=== PATIENT | female | born 1980 | race Caucasian/White ===

== ENCOUNTER 2017-09-28 12:17 | Inpatient (IN) ==
--- NOTE | 2017-09-28 13:01 | Emergency Department Note ---
Disposition Clinical Impression: Pyelonephritis Disposition: Admitted As Inpatient Condition: Good Referrals: Kaylee Pierre, GANTRY CRANE OPERATOR [Primary Care Provider] - NONE,PCP [Family Provider] - Forms: ED Satisfaction Letter, Work/School Release Time of Disposition: 17:30 General Adult HPI - General Chief complaint: ED Abdominal Pain Stated complaint: ABD Pain Time Seen by Provider: 09/28/17 12:24 Nursing Notes Reviewed: Yes Vital Signs Reviewed: Yes - History of Present Illness HPI Narrative: Three-day history of abdominal pain. No nausea or vomiting. Starts in her back comes around to her abdomen. States is on both sides occasionally. Fevers at home. High fever of 100.7. Has been taking Tylenol and Motrin this does help with the fever but not the pain. Diagnosed with urinary tract infection at urgent care and then sent here for possible diverticulosis. Pain Scale: 10 - Related Data Home Medications Medication Instructions Recorded Confirmed Albuterol Sulfate [Ventolin Hfa] 2 puff IH Q6H PRN 09/28/17 09/28/17 BuPROPion SR (12 HR) [Wellbutrin 150 mg PO BID 09/28/17 09/28/17 SR] Citalopram Hydrobromide [Celexa] 40 mg PO DAILY 09/28/17 09/28/17 Cyclobenzaprine HCl 5 mg PO DAILY PRN 09/28/17 09/28/17 Fluticasone Propionate [Flovent 2 puff IH BID 09/28/17 09/28/17 Hfa] Furosemide [Lasix] 20 mg PO DAILY 09/28/17 09/28/17 Lisinopril [Zestril] 10 mg PO DAILY 09/28/17 09/28/17 Norethindrone [Cathy] 0.35 mg PO DAILY 09/28/17 09/28/17 Omeprazole [PriLOSEC] 20 mg PO DAILY 09/28/17 09/28/17 Potassium Chloride [K-Tab ER] 20 meq PO DAILY 09/28/17 09/28/17 Allergies Allergy/AdvReac Type Severity Reaction Status Date / Time sulfamethoxazole Allergy Hives Verified 09/28/17 10:39 [From Bactrim] trimethoprim [From Bactrim] Allergy Hives Verified 09/28/17 10:39 All systems ED: reviewed and negative except as stated. Constitutional: Reports: fever ENT ED: Denies: congestion Cardiovascular: Denies: chest pain, palpitations, syncope Respiratory: Denies: cough, dyspnea Gastrointestinal: Reports: abdominal pain. Denies: nausea, vomiting, diarrhea, constipation, hematemesis, melena, hematochezia Genitourinary: Denies: urgency, dysuria, frequency, hematuria Musculoskeletal: Denies: back pain, neck pain Integumentary: Denies: rash, abrasion Neurological: Denies: headache, weakness, numbness Past Medical History - Past Medical History Attestation: Yes The following information was validated with the patient. Source: patient - Social History Smoking Status: Unknown if ever smoked Smokeless Tobacco Status: No Alcohol use: Reports: none Physical Exam - General Limitations: no limitations General appearance: alert, in no apparent distress - Head Head exam: atraumatic, normocephalic, normal inspection - Eye Eye exam: Present: normal appearance, PERRL, EOMI - ENT ENT exam: normal exam, normal oropharynx, mucous membranes moist - Neck Neck exam: Present: normal inspection, full ROM, trachea midline - Chest Chest inspection: Present: normal inspection, symmetric chest wall rise - Respiratory Respiratory exam: Present: normal lung sounds bilaterally. Absent: respiratory distress, accessory muscle use - Cardiovascular Cardiovascular exam: Present: regular rate, normal rhythm, normal heart sounds - Abdominal Exam Abdominal exam: Present: soft, tenderness (Mild diffuse). Absent: distention, guarding, rebound, rigidity, French's sign, Rovsing's sign, tenderness at McBurney's Point - Extremities Exam Extremities exam: Present: normal inspection, full ROM, normal capillary refill. Absent: tenderness, pedal edema - Back Exam Back exam: Present: normal inspection, full ROM, CVA tenderness (R), CVA tenderness (L). Absent: tenderness - Neurological Exam Neurological exam: Present: alert, oriented X3 - Psychiatric Psychiatric exam: Present: normal affect, normal mood - Skin Skin exam: Present: warm, dry, intact, normal color. Absent: rash Course Course Narrative: Female patient presenting to the emergency department complaining of 3 days of abdominal pain. She reports intermittent fevers at home. High temp of 100.7. Has been taken Tylenol Motrin to help with this. The medication has not helped with the pain. She denies any nausea or vomiting. She denies any diarrhea. Denies a consultation had a normal bowel movements today. No blood in her urine or stool. No trouble urinating. Was seen at urgent care who had a concern for possible diverticulitis. She is now presenting to [facility]. On exam she is resting comfortably. Lung sounds are clear heart tones are normal abdomen is soft nonrigid. She does report some flank pain that radiates around to her abdomen. More on the left but does occasionally occur on the right. A UTI at the urgent care. We will get a CT of patient's abdomen flat her with pain medication and get basic labs. - Reevaluation(s) Reevaluation #1: Patient CT of abdomen and pelvis is back. Does show perinephric stranding as well as a possible renal abscess. Patient does have a leukocytosis. We will place patient on antibiotics and speak with urology. We will also admit to the hospital. Time: 16:19 - Consultations Consultation #1: I spoke with Dr Alexis. He states that he will see the Pt in the hospital. Time: 16:37 Consultation #2: Dr Bond accepted patient in stable condition. Time: 17:30 Vital Signs Temperature 99.1 F 09/28/17 12:20 Pulse Rate 112 09/28/17 12:20 Respiratory Rate 22 09/28/17 12:20 Blood Pressure 100/63 09/28/17 12:20 O2 Sat by Pulse Oximetry 98 09/28/17 12:20 Temperature 99.1 F 09/28/17 13:13 Pulse Rate 93 09/28/17 13:13 Respiratory Rate 18 09/28/17 13:13 Blood Pressure 100/63 09/28/17 13:13 O2 Sat by Pulse Oximetry 95 09/28/17 13:13 Oxygen Delivery Oxygen Delivery Room Air Medical Decision Making - Medical Records Medical records reviewed: Yes I reviewed the patient's medical records. - Lab Data Lab results reviewed: Yes I reviewed the patient's lab results. Result diagrams: 09/28/17 13:12 09/28/17 13:12 Lab Results 09/28/17 09/28/17 09/28/17 Range/Units 12:48 13:12 13:12 WBC 20.8 H (4.3-11.1) K/mcL RBC 3.93 (3.82-4.97) M/mcL Hgb 12.0 (11.5-15.4) g/dL Hct 34.8 L (35.3-44.9) % MCV 88.5 (83.0-100.0) fL MCH 30.5 (28.0-33.3) pg MCHC 34.5 (31.6-35.5) g/dL RDW 12.8 (11.5-14.5) % Plt Count 192 (140-400) K/mcL MPV 9.7 (9.4-12.4) fL Immature Gran % 1.0 (0-4) % Seg Neutrophils % 81.8 % Lymphocytes % 9.1 % Monocytes % 7.8 % Eosinophils % 0.2 % Basophils % 0.1 % Neutrophils # 17.0 H (1.6-8.9) K/mcL Lymphocytes # 1.9 (0.6-4.6) K/mcL Monocytes # 1.6 H (0.0-1.3) K/mcL Eosinophils # 0.1 (0.0-0.6) K/mcL Basophils # 0.0 (0.0-0.2) K/mcL Sodium 134 L (136-145) mEq/L Potassium 3.7 (3.5-5.1) mEq/L Chloride 102 (98-107) mEq/L Carbon Dioxide 27 (23-29) mEq/L BUN 11 (6-20) mg/dL Creatinine 0.68 (0.60-1.20) mg/dL Est GFR ( Amer) > 60 (> 60) Est GFR (Non-Af Amer) > 60 (> 60) BUN/Creatinine Ratio 16 (6-26) Glucose 102 (70-105) mg/dL Calculated Osmolality 278 L (280-300) Lactic Acid (0.5-2.2) mmol/L Calcium 8.6 (8.6-10.3) mg/dL Urine Color Dark Yellow (Yellow) Urine Clarity Hazy A (Clear) Urine pH 6.0 (5.0-8.0) pH Units Ur Specific [place] 1.018 (1.010-1.025) Urine Protein 100 H (Neg-Trace) mg/dL Urine Glucose (UA) Normal (Normal) mg/dL Urine Ketones Trace H (Negative) mg/dL Urine Blood Small H (Negative) Urine Nitrite Negative (Negative) Urine Bilirubin Negative (Negative) Urine Urobilinogen Normal (Normal) mg/dL Ur Leukocyte Esterase Large H (Negative) Urine Microscopic RBC 0-3 (0-3) per hpf Urine Microscopic WBC TNTC H (0-3) per hpf Ur Squamous Epith Cells Many H (None-Few) per lpf Urine Bacteria Many H (None-Few) per hpf Urine Mucus Few (Few) Ur Culture Indicated? NO. A (NO) Urine Test (Negative) 09/28/17 09/28/17 Range/Units 13:13 15:40 WBC (4.3-11.1) K/mcL RBC (3.82-4.97) M/mcL Hgb (11.5-15.4) g/dL Hct (35.3-44.9) % MCV (83.0-100.0) fL MCH (28.0-33.3) pg MCHC (31.6-35.5) g/dL RDW (11.5-14.5) % Plt Count (140-400) K/mcL MPV (9.4-12.4) fL Immature Gran % (0-4) % Seg Neutrophils % % Lymphocytes % % Monocytes % % Eosinophils % % Basophils % % Neutrophils # (1.6-8.9) K/mcL Lymphocytes # (0.6-4.6) K/mcL Monocytes # (0.0-1.3) K/mcL Eosinophils # (0.0-0.6) K/mcL Basophils # (0.0-0.2) K/mcL Sodium (136-145) mEq/L Potassium (3.5-5.1) mEq/L Chloride (98-107) mEq/L Carbon Dioxide (23-29) mEq/L BUN (6-20) mg/dL Creatinine (0.60-1.20) mg/dL Est GFR ( Amer) (> 60) Est GFR (Non-Af Amer) (> 60) BUN/Creatinine Ratio (6-26) Glucose (70-105) mg/dL Calculated Osmolality (280-300) Lactic Acid 0.5 (0.5-2.2) mmol/L Calcium (8.6-10.3) mg/dL Urine Color (Yellow) Urine Clarity (Clear) Urine pH (5.0-8.0) pH Units Ur Specific [place] (1.010-1.025) Urine Protein (Neg-Trace) mg/dL Urine Glucose (UA) (Normal) mg/dL Urine Ketones (Negative) mg/dL Urine Blood (Negative) Urine Nitrite (Negative) Urine Bilirubin (Negative) Urine Urobilinogen (Normal) mg/dL Ur Leukocyte Esterase (Negative) Urine Microscopic RBC (0-3) per hpf Urine Microscopic WBC (0-3) per hpf Ur Squamous Epith Cells (None-Few) per lpf Urine Bacteria (None-Few) per hpf Urine Mucus (Few) Ur Culture Indicated? (NO) Urine Test Negative (Negative) - Radiology Data Radiology results reviewed: Yes I reviewed the patient's radiology results. Abdomen/Pelvis CT 09/28/17 13:02 IMPRESSION: 1. Mild left perinephric edema can be seen in the setting of pyelonephritis, limited by the lack intravenous contrast ; correlate with urinalysis. A 2.7 cm ill defined cystic lesion within the left lower pole could represent a simple cyst versus renal abscess. 2. Trace bilateral pleural effusions. 3. Trace pelvic ascites. D/ / Javier Kaminski MD / Javier Kaminski MD Interpreting Provider: Javier Kaminski MD
[2017-09-28 13:04] LABS: Bilirubin,Urine Negative (Negative); Blood,Urine Small (Negative); Color,Urine Dark Yellow (Yellow); Glucose,Urine (UA) Normal (Normal); Ketones,Urine Trace mg/dL (Negative); Leukocyte Esterase,Urine Large (Negative); Nitrite,Urine Negative (Negative); Protein,Urine 100 mg/dL (Neg-Trace); Specific Gravity,Urine 1.018 (1.010-1.025); Urobilinogen,Urine Normal (Normal)
[2017-09-28 13:07] LABS: Bacteria,Urine Many per hpf (None-Few); Squamous Epithelial Cell,Urine Many per lpf (None-Few); WBC,Urine TNTC per hpf (0-3)
[2017-09-28 13:22] LABS: Clarity,Urine Hazy (Clear)
[2017-09-28 13:29] LABS: Basophils % 0.1 %; Eosinophils # 0.1 K/mcL (0.0-0.6); Eosinophils % 0.2 %; Hematocrit 34.8 % (35.3-44.9); Lymphocytes # 1.9 K/mcL (0.6-4.6); Lymphocytes % 9.1 %; Mean Corpuscular HGB Conc 34.5 g/dL (31.6-35.5); Mean Corpuscular Hemoglobin 30.5 pg (28.0-33.3); Mean Corpuscular Volume 88.5 fL (83.0-100.0); Mean Platelet Volume 9.7 fL (9.4-12.4); Monocytes # 1.6 K/mcL (0.0-1.3); Monocytes % 7.8 %; Platelet Count 192 K/mcL (140-400); Red Blood Count 3.93 M/mcL (3.82-4.97); Red Cell Distribution Width 12.8 % (11.5-14.5); Segmented Neutrophils % 81.8 %
[2017-09-28 13:31] LABS: Mucus,Urine Few (Few)
[2017-09-28 13:32] LABS: RBC,Urine 0-3 per hpf (0-3)
[2017-09-28 13:47] LABS: BUN/Creatinine Ratio 16 (6-26); Blood Urea Nitrogen 11 mg/dL (6-20); Calcium 8.6 mg/dL (8.6-10.3); Carbon Dioxide 27 mEq/L (23-29); Chloride 102 mEq/L (98-107); Glucose 102 mg/dL (70-105); Osmolality,Calculated 278 (280-300); Potassium 3.7 mEq/L (3.5-5.1); Sodium 134 mEq/L (136-145); eGFR For Non-African Americans > 60 (> 60)
[2017-09-28] MEDS ORDERED: Ketorolac 30 MG/ML VIAL IM ONE (13:49)
[2017-09-28] MEDS ORDERED: cefTRIAXone 1,000 MG in Water for inj. (sterile) 20 ML 10 ML IVP ONE (14:23)
[2017-09-28] MEDS ORDERED: 0.9 % Sodium Chloride 1,000 ML IVC ONE (14:24)
--- NOTE | 2017-09-28 16:11 | Emergency Department Note ---
Disposition Clinical Impression: Pyelonephritis Disposition: Still a Patient Referrals: Kaylee Pierre, PHP MYSQL DEVELOPER [Primary Care Provider] - NONE,PCP [Family Provider] - Forms: ED Satisfaction Letter, Work/School Release General Adult HPI - General Chief complaint: ED Abdominal Pain Stated complaint: ABD Pain Time Seen by Provider: 09/28/17 12:24 Source: patient, family Limitations: no limitations - History of Present Illness Pain Scale: 10 - Related Data Home Medications Medication Instructions Recorded Confirmed Acyclovir 09/28/17 BuPROPion 09/28/17 Citalopram 09/28/17 Cyclobenzaprine 09/28/17 Flovent Hfa 09/28/17 Lisinopril 09/28/17 Omeprazole 09/28/17 Potassium Chloride 09/28/17 Ventolin Hfa 09/28/17 Allergies Allergy/AdvReac Type Severity Reaction Status Date / Time sulfamethoxazole Allergy Hives Verified 09/28/17 10:39 [From Bactrim] trimethoprim [From Bactrim] Allergy Hives Verified 09/28/17 10:39 Past Medical History - Past Medical History Medical history: Reports: no medical history Psychiatric history: Reports: no psych history - Social History Smoking Status: Unknown if ever smoked Smokeless Tobacco Status: No Alcohol use: Reports: none Physical Exam - General Limitations: no limitations General appearance: alert, in no apparent distress Course Vital Signs Temperature 99.1 F 09/28/17 12:20 Pulse Rate 112 09/28/17 12:20 Respiratory Rate 22 09/28/17 12:20 Blood Pressure 100/63 09/28/17 12:20 O2 Sat by Pulse Oximetry 98 09/28/17 12:20 Temperature 99.1 F 09/28/17 13:13 Pulse Rate 93 09/28/17 13:13 Respiratory Rate 18 09/28/17 13:13 Blood Pressure 100/63 09/28/17 13:13 O2 Sat by Pulse Oximetry 95 09/28/17 13:13 Oxygen Delivery Oxygen Delivery Room Air Medical Decision Making - Lab Data Result diagrams: 09/28/17 13:12 09/28/17 13:12 Lab Results 09/28/17 09/28/17 09/28/17 Range/Units 12:48 13:12 13:12 WBC 20.8 H (4.3-11.1) K/mcL RBC 3.93 (3.82-4.97) M/mcL Hgb 12.0 (11.5-15.4) g/dL Hct 34.8 L (35.3-44.9) % MCV 88.5 (83.0-100.0) fL MCH 30.5 (28.0-33.3) pg MCHC 34.5 (31.6-35.5) g/dL RDW 12.8 (11.5-14.5) % Plt Count 192 (140-400) K/mcL MPV 9.7 (9.4-12.4) fL Immature Gran % 1.0 (0-4) % Seg Neutrophils % 81.8 % Lymphocytes % 9.1 % Monocytes % 7.8 % Eosinophils % 0.2 % Basophils % 0.1 % Neutrophils # 17.0 H (1.6-8.9) K/mcL Lymphocytes # 1.9 (0.6-4.6) K/mcL Monocytes # 1.6 H (0.0-1.3) K/mcL Eosinophils # 0.1 (0.0-0.6) K/mcL Basophils # 0.0 (0.0-0.2) K/mcL Sodium 134 L (136-145) mEq/L Potassium 3.7 (3.5-5.1) mEq/L Chloride 102 (98-107) mEq/L Carbon Dioxide 27 (23-29) mEq/L BUN 11 (6-20) mg/dL Creatinine 0.68 (0.60-1.20) mg/dL Est GFR ( Amer) > 60 (> 60) Est GFR (Non-Af Amer) > 60 (> 60) BUN/Creatinine Ratio 16 (6-26) Glucose 102 (70-105) mg/dL Calculated Osmolality 278 L (280-300) Lactic Acid (0.5-2.2) mmol/L Calcium 8.6 (8.6-10.3) mg/dL Urine Color Dark Yellow (Yellow) Urine Clarity Hazy A (Clear) Urine pH 6.0 (5.0-8.0) pH Units Ur Specific [place] 1.018 (1.010-1.025) Urine Protein 100 H (Neg-Trace) mg/dL Urine Glucose (UA) Normal (Normal) mg/dL Urine Ketones Trace H (Negative) mg/dL Urine Blood Small H (Negative) Urine Nitrite Negative (Negative) Urine Bilirubin Negative (Negative) Urine Urobilinogen Normal (Normal) mg/dL Ur Leukocyte Esterase Large H (Negative) Urine Microscopic RBC 0-3 (0-3) per hpf Urine Microscopic WBC TNTC H (0-3) per hpf Ur Squamous Epith Cells Many H (None-Few) per lpf Urine Bacteria Many H (None-Few) per hpf Urine Mucus Few (Few) Ur Culture Indicated? NO. A (NO) Urine Test (Negative) 09/28/17 09/28/17 Range/Units 13:13 15:40 WBC (4.3-11.1) K/mcL RBC (3.82-4.97) M/mcL Hgb (11.5-15.4) g/dL Hct (35.3-44.9) % MCV (83.0-100.0) fL MCH (28.0-33.3) pg MCHC (31.6-35.5) g/dL RDW (11.5-14.5) % Plt Count (140-400) K/mcL MPV (9.4-12.4) fL Immature Gran % (0-4) % Seg Neutrophils % % Lymphocytes % % Monocytes % % Eosinophils % % Basophils % % Neutrophils # (1.6-8.9) K/mcL Lymphocytes # (0.6-4.6) K/mcL Monocytes # (0.0-1.3) K/mcL Eosinophils # (0.0-0.6) K/mcL Basophils # (0.0-0.2) K/mcL Sodium (136-145) mEq/L Potassium (3.5-5.1) mEq/L Chloride (98-107) mEq/L Carbon Dioxide (23-29) mEq/L BUN (6-20) mg/dL Creatinine (0.60-1.20) mg/dL Est GFR ( Amer) (> 60) Est GFR (Non-Af Amer) (> 60) BUN/Creatinine Ratio (6-26) Glucose (70-105) mg/dL Calculated Osmolality (280-300) Lactic Acid 0.5 (0.5-2.2) mmol/L Calcium (8.6-10.3) mg/dL Urine Color (Yellow) Urine Clarity (Clear) Urine pH (5.0-8.0) pH Units Ur Specific [place] (1.010-1.025) Urine Protein (Neg-Trace) mg/dL Urine Glucose (UA) (Normal) mg/dL Urine Ketones (Negative) mg/dL Urine Blood (Negative) Urine Nitrite (Negative) Urine Bilirubin (Negative) Urine Urobilinogen (Normal) mg/dL Ur Leukocyte Esterase (Negative) Urine Microscopic RBC (0-3) per hpf Urine Microscopic WBC (0-3) per hpf Ur Squamous Epith Cells (None-Few) per lpf Urine Bacteria (None-Few) per hpf Urine Mucus (Few) Ur Culture Indicated? (NO) Urine Test Negative (Negative) Attestation Statement - Attestation Attestation: I examined this patient and my medical decision-making was reviewed with the Resident Physician. I agree with the documented findings, disposition and treatment plan as described except to the extent set forth below. 37 year old female prsentse to the ED with copmlaints of abdominall pain and left flank pain and is tachcardiac on presenstaiton with an obvisous UTI. It appears that on ABCT she has pyelo. WE will cntinue treatemtn with IVF and rocephin. PAtient has a WBC of 20. We will offer admission to the hospital tday.
[2017-09-28] MEDS ORDERED: *HR* OxyCODONE Immed Rel 5 MG TABLET PO ONE (21:06)
[2017-09-28] MEDS ORDERED: Ibuprofen 600 MG TABLET PO PRN (21:27)
[2017-09-28] MEDS: Acetaminophen 325 MG TABLET PO PRN (21:59)
[2017-09-28] MEDS ORDERED: 0.9 % Sodium Chloride w KCl 20 MEQ/1,000 ML MLS IVC SCH (22:00)
[2017-09-29] MEDS: Melatonin 3 MG TABLET PO PRN ×2 (00:43→23:04)
[2017-09-29] MEDS: Ketorolac 30 MG/ML VIAL IVP SCH ×2 (00:59→05:47)
--- NOTE | 2017-09-29 05:27 | Internal Med History&Physical ---
Date of Encounter: 09/28/17 Time of Encounter: 23:00 Internal Medicine - H&P: HPI Chief complaint: LLQ abdominal pain Admitted From: Home Plans for Post Hospital Care: Home History of present illness: Ms. Hi is a 37 year old female. She has had left lower quadrant abdominal pain/cramping, as well as off and on fever/chills for about 3 days. She felt like she had been constipatedtook laxatives on 2 occasions. She denies having urinary symptoms. CT of abdomen and pelvis without IV contrast done in the emergency department showed mild the left pallavi-nephritic edemacould represent acute pyelonephritis. It also showed a 2.7 cm ill-defined cystic lesion within the left lower polecould represent a simple cyst versus renal abscess. WBC is 20.8 thousand. Her UA shows large amounts of leukocyte esterase. There are numerous urine microscopic WBC. Review of systems: All 14 organ systems were reviewed by me with the patient. Positive and pertinent negative findings are listed above. The rest of organ systems is negative. Physical Exam: Skin: Free of rash and discoloration. Eyes: Sclera is white. There is no discharge from eyes. ENMT: Oral/pharyngeal mucosa is normal in appearance. There is no discharge from nose or ears. Respiratory: Normal breath sounds with no crackles and wheezes bilaterally. CV: Heart is regular with no gallop or murmur. GI: There is mild tenderness in left lower quadrant of the abdomen. There is no palpable mass or visceromegaly. : There is no tenderness in patient's flanks bilaterally. Neuro exam: There is good strength in upper and lower extremities. The patient has normal eye movements. Psychiatric: The patient has normal affect. His thought process is appropriate to the situation. A/P: Acute pyelonephritis. We will offer her IV fluids and IV Rocephin. Possible left kidney abscess. Urology is consulted. Hypertension. Under control. We will continue lisinopril. GERD. Under control. We will continue omeprazole. Past Med Surg Social Fam HX - Past Medical History Source: patient Medical history: asthma, GERD, hypertension Psychiatric history: no psych history, anxiety, depression - Social History Smoking Status: Unknown if ever smoked Smokeless Tobacco Status: No Alcohol use: none - Family History Mother Hx Family Cardiac Disorders: Yes ([place]) Father Living Status: Still Living Internal Medicine - H&P: Meds Albuterol Sulfate [Ventolin Hfa] 2 puff IH Q6H PRN 09/28/17 [History] BuPROPion SR (12 HR) [Wellbutrin SR] 150 mg PO BID 09/28/17 [History] Citalopram Hydrobromide [Celexa] 40 mg PO DAILY 09/28/17 [History] Cyclobenzaprine HCl 5 mg PO DAILY PRN 09/28/17 [History] Fluticasone Propionate [Flovent Hfa] 2 puff IH BID 09/28/17 [History] Furosemide [Lasix] 20 mg PO DAILY 09/28/17 [History] Lisinopril [Zestril] 10 mg PO DAILY 09/28/17 [History] Norethindrone [Cathy] 0.35 mg PO DAILY 09/28/17 [History] Omeprazole [PriLOSEC] 20 mg PO DAILY 09/28/17 [History] Potassium Chloride [K-Tab ER] 20 meq PO DAILY 09/28/17 [History] 3 Allergy/AdvReac Type Severity Reaction Status Date / Time sulfamethoxazole Allergy Hives Verified 09/28/17 10:39 [From Bactrim] trimethoprim [From Bactrim] Allergy Hives Verified 09/28/17 10:39 - Constitutional Vitals: Temp Pulse Resp BP Pulse Ox 99.5 F 96 18 94/63 96 09/29/17 04:34 09/29/17 04:34 09/29/17 04:34 09/29/17 04:34 09/29/17 04:34 General appearance: Present: no acute distress, answers questions appropriately Internal Med - H&P Results - Labs CBC & Chem 7: 09/29/17 05:41 09/29/17 05:41 - Assessment and plan (1) Pyelonephritis Current Visit: Yes Status: Acute (2) Renal lesion Current Visit: Yes Status: Acute (3) HTN (hypertension) Current Visit: Yes Status: Acute Qualifiers: Hypertension type: essential hypertension Qualified Code(s): I10 - Essential (primary) hypertension (4) GERD (gastroesophageal reflux disease) Current Visit: Yes Status: Acute Qualifiers: Esophagitis presence: esophagitis presence not specified Qualified Code(s) : K21.9 - Gastro-esophageal reflux disease without esophagitis - Time Spent With Patient Total time spent is greater than 50% in coordination of care (as documented) at patient's floor/unit and/or counseling patient:
[2017-09-29 06:39] LABS: Basophils % 0.1 %; Eosinophils # 0.1 K/mcL (0.0-0.6); Eosinophils % 0.8 %; Hematocrit 32.9 % (35.3-44.9); Hemoglobin 11.2 g/dL (11.5-15.4); Lymphocytes # 2.1 K/mcL (0.6-4.6); Lymphocytes % 14.5 %; Mean Corpuscular Volume 91.1 fL (83.0-100.0); Monocytes # 1.2 K/mcL (0.0-1.3); Monocytes % 8.5 %; Platelet Count 176 K/mcL (140-400); Red Blood Count 3.61 M/mcL (3.82-4.97); Red Cell Distribution Width 13.2 % (11.5-14.5); Segmented Neutrophils % 75.1 %
[2017-09-29 06:54] LABS: BUN/Creatinine Ratio 14 (6-26); Blood Urea Nitrogen 13 mg/dL (6-20); Calcium 8.1 mg/dL (8.6-10.3); Carbon Dioxide 29 mEq/L (23-29); Chloride 101 mEq/L (98-107); Glucose 123 mg/dL (70-105); Osmolality,Calculated 283 (280-300); Potassium 3.6 mEq/L (3.5-5.1); Sodium 136 mEq/L (136-145); eGFR For Non-African Americans > 60 (> 60)
[2017-09-29] MEDS: Beclomethasone 80mcg MDI IH SCH ×2 (07:29→22:32)
[2017-09-29] MEDS: Furosemide 20 MG TABLET PO SCH (08:02)
[2017-09-29] MEDS: BuPROPion SR (12 HR) 150 MG TABLET PO SCH ×2 (08:02→20:21)
[2017-09-29] MEDS: 0.9 % Sodium Chloride 1,000 ML IVC SCH ×2 (08:07→22:27)
[2017-09-29] MEDS: cefTRIAXone 2,000 MG in Water for inj. (sterile) 20 ML 20 ML IVP SCH (08:08)
[2017-09-29] MEDS: NORETHINDRONE 0.35 MG PO SCH (08:08)
--- NOTE | 2017-09-29 08:37 | Urology - Consult Note ---
Date of Encounter: 09/29/17 Time of Encounter: 08:35 - Assessment and Plan (1) Pyelonephritis Current Visit: Yes Status: Acute Assessment and plan: Patient has likely pyelonephritis given elevated WBC count as well as fever. Awaiting urine culture results. Recommend to continue broad-spectrum antibiotics at this time. If patient fails to clinically improve or black toes will need to obtain CT abdomen and pelvis with IV contrast for better clarification of the left renal cyst versus abscess. Patient's pain pattern is very atypical for pyelonephritis. (2) Abdominal pain Current Visit: No Status: Acute Assessment and plan: Pain pattern very atypical for pyelonephritis. I have reviewed the CT scan which did not show significant diverticular disease. We will continue to observe. Qualifiers: Abdominal location: unspecified location Qualified Code(s): R10.9 - Unspecified abdominal pain (3) UTI (urinary tract infection) Current Visit: No Status: Acute Assessment and plan: Continue with broad-spectrum antibiotics at this time. We will continue to follow along closely. Awaiting urine culture Qualifiers: Urinary tract infection type: acute cystitis Hematuria presence: without hematuria Qualified Code(s): N30.00 - Acute cystitis without hematuria Urology CN:HPI Consult date: 09/29/17 Reason for consult Urology: Other (possible renal abscess) Requesting physician: Umair Bond History of present illness: Lili is a 37-year-old female who is had vague left lower quadrant abdominal discomfort for the past couple days. Patient initially thought that she was constipated. She took a suppository which failed to improve her symptoms. Patient presented to urgent care and then was subsequently sent to the ER for possible pyelonephritis. Patient had a urinalysis which was positive for blood and leukocytes but negative for nitrites. Patient had a CT abdomen and pelvis without contrast performed which showed left perinephric fluid as well as possible early abscess versus cyst on the left lower pole of her kidney. Patient states that she has minimal left lower back discomfort. She has been having some fevers. No nausea or vomiting. Past Med Surg Social Fam HX - Past Medical History Medical history: asthma, GERD, hypertension Psychiatric history: no psych history, anxiety, depression - Social History Smoking Status: Unknown if ever smoked Smokeless Tobacco Status: No Alcohol use: none - Family History Mother Hx Family Cardiac Disorders: Yes ([place]) Father Living Status: Still Living Medications and Allergies Albuterol Sulfate [Ventolin Hfa] 2 puff IH Q6H PRN 09/28/17 [History] BuPROPion SR (12 HR) [Wellbutrin SR] 150 mg PO BID 09/28/17 [History] Citalopram Hydrobromide [Celexa] 40 mg PO DAILY 09/28/17 [History] Cyclobenzaprine HCl 5 mg PO DAILY PRN 09/28/17 [History] Fluticasone Propionate [Flovent Hfa] 2 puff IH BID 09/28/17 [History] Furosemide [Lasix] 20 mg PO DAILY 09/28/17 [History] Lisinopril [Zestril] 10 mg PO DAILY 09/28/17 [History] Norethindrone [Cathy] 0.35 mg PO DAILY 09/28/17 [History] Omeprazole [PriLOSEC] 20 mg PO DAILY 09/28/17 [History] Potassium Chloride [K-Tab ER] 20 meq PO DAILY 09/28/17 [History] 3 Allergy/AdvReac Type Severity Reaction Status Date / Time sulfamethoxazole Allergy Hives Verified 09/28/17 10:39 [From Bactrim] trimethoprim [From Bactrim] Allergy Hives Verified 09/28/17 10:39 Review of Systems - Constitutional chills, fever(s), weakness - EENT Nose, mouth and throat: no dizziness, no throat swelling - Cardiovascular no chest pain, no diaphoresis - Respiratory no cough, no dyspnea - Gastrointestinal abdominal pain, no nausea, no vomiting - Genitourinary Genitourinary: no dysuria, no hematuria - Musculoskeletal back pain, no muscle weakness - Integumentary no erythema, no swelling - Neurological no confusion, no weakness - Psychiatric no confusion, no depression - Hematologic/Lymphatic no lymphadenopathy - Allergic/Immunologic no throat swelling, no wheezing Exam Initial Vital Signs Temp Pulse Resp BP Pulse Ox 99.1 F 112 22 100/63 98 09/28/17 12:20 09/28/17 12:20 09/28/17 12:20 09/28/17 12:20 09/28/17 12:20 General/Neuological: alert and oriented x 3 Eyes: normal pupils, non-icteric Neck: no lymphadenopathy noted, supple to touch Cardiovascular: RRR, no murmurs, no JVD, no aortic distention on exam Respiratory: normal respiratory effort, clear bilaterally ABD: soft, tender to palpation of left lower quadrant, no masses palpated, good bowel sounds Back: no pain on percussion bilaterally Skin: no rashes noted Musculoskeletal: normal gait, FROMx4 Urology Results - Labs 09/29/17 05:41 09/29/17 05:41 Abnormal lab results WBC 14.6 K/mcL (4.3-11.1) H 09/29/17 05:41 RBC 3.61 M/mcL (3.82-4.97) L 09/29/17 05:41 Hgb 11.2 g/dL (11.5-15.4) L 09/29/17 05:41 Hct 32.9 % (35.3-44.9) L 09/29/17 05:41 Neutrophils # 11.0 K/mcL (1.6-8.9) H 09/29/17 05:41 Glucose 123 mg/dL (70-105) H 09/29/17 05:41 Calcium 8.1 mg/dL (8.6-10.3) L 09/29/17 05:41 Urine Clarity Hazy (Clear) A 09/28/17 12:48 Urine Protein 100 mg/dL (Neg-Trace) H 09/28/17 12:48 Urine Ketones Trace mg/dL (Negative) H 09/28/17 12:48 Urine Blood Small (Negative) H 09/28/17 12:48 Ur Leukocyte Esterase Large (Negative) H 09/28/17 12:48 Urine Microscopic WBC TNTC per hpf (0-3) H 09/28/17 12:48 Ur Squamous Epith Cells Many per lpf (None-Few) H 09/28/17 12:48 Urine Bacteria Many per hpf (None-Few) H 09/28/17 12:48 Ur Culture Indicated? NO. (NO) A 09/28/17 12:48 Diabetes panel 09/29/17 Range/Units 05:41 Sodium 136 (136-145) mEq/L Potassium 3.6 (3.5-5.1) mEq/L Chloride 101 (98-107) mEq/L Carbon Dioxide 29 (23-29) mEq/L BUN 13 (6-20) mg/dL Creatinine 0.93 (0.60-1.20) mg/dL Glucose 123 H (70-105) mg/dL Calcium 8.1 L (8.6-10.3) mg/dL Calcium panel 09/29/17 Range/Units 05:41 Calcium 8.1 L (8.6-10.3) mg/dL Pituitary panel 09/29/17 Range/Units 05:41 Sodium 136 (136-145) mEq/L Potassium 3.6 (3.5-5.1) mEq/L Chloride 101 (98-107) mEq/L Carbon Dioxide 29 (23-29) mEq/L BUN 13 (6-20) mg/dL Creatinine 0.93 (0.60-1.20) mg/dL Glucose 123 H (70-105) mg/dL Calcium 8.1 L (8.6-10.3) mg/dL Adrenal panel 09/29/17 Range/Units 05:41 Sodium 136 (136-145) mEq/L Potassium 3.6 (3.5-5.1) mEq/L Chloride 101 (98-107) mEq/L Carbon Dioxide 29 (23-29) mEq/L BUN 13 (6-20) mg/dL Creatinine 0.93 (0.60-1.20) mg/dL Glucose 123 H (70-105) mg/dL Calcium 8.1 L (8.6-10.3) mg/dL All other labs normal. - Imaging CT scan - abdomen: image reviewed CT scan - pelvis: image reviewed Consult Discharge Plan - Plan Referrals: Kaylee Pierre, OFFSET PRESS OPERATOR APPRENTICE [Primary Care Provider] - NONE,PCP [Family Provider] -
--- NOTE | 2017-09-29 11:39 | Internal Med Progress Note ---
Hospitalist Progress Note - Encounter Date of Encounter: 09/29/17 Time of Encounter: 11:00 - Subjective Interval History: 37-year-old female with morbid obesity being managed for sepsis secondary to pyelonephritis. Sepsis was present on admission. Workup also significant for renal lesion thought to be possibly renal abscess. urology was consulted and is following. She reports improvement in flank pain, no new symptoms. - Exam Vitals: Temp Pulse Resp BP Pulse Ox 99.0 F 92 16 95/65 98 09/29/17 07:08 09/29/17 07:08 09/29/17 07:29 09/29/17 07:08 09/29/17 07:29 Exam: Gen.: Vitals noted. No acute distress. AAOx3. Sitting up comfortably in bed. Speaking in full sentences, MOrbidly obese HEENT: PERRL/EOMI, oropharynx clear, Normocephalic, atraumatic, moist mucous membranes Cardiac: RRR, no murmur, +S1/S2, occasional PVC Pulmonary: CTAB Abdomen: soft, non-tender, BS noted, no guarding MSK: ROM intact, no joint swelling noted Extremities: no clubing , no edema, no calf tenderness Neuro: A&Ox3, moves all extremities, no focal deficits Back: No CVA tenderness Psych: Appropriate mood and behavior - Assessment and Plan (1) Sepsis Current Visit: Yes Status: Acute Assessment and Plan: With acute pyelonephritis. Urine and blood cultures are pending Continue Rocephin 2 g daily Hemodynamically stable Leukocytosis is improving Tmax in the past 24 hours 102.8 (2) Pyelonephritis Current Visit: Yes Status: Acute Assessment and Plan: Management as above (3) Obesity Current Visit: Yes Status: Chronic Assessment and Plan: Lifestyle modification encouraged (4) GERD (gastroesophageal reflux disease) Current Visit: Yes Status: Chronic Assessment and Plan: Continue home medications (5) HTN (hypertension) Current Visit: Yes Status: Chronic Assessment and Plan: pressure is controlled continue home medications (6) Renal lesion Current Visit: Yes Status: Acute Assessment and Plan: Left lower kidney lesion secondary to represent a simple cyst versus renal abscess. urology evaluation pending. - Time Spent with Patient Total time spent is greater than 50% in coordination of care (as documented) at patient's floor/unit and/or counseling patient: Plan of Care Discussed with: patient Internal Medicine: Result - Labs CBC & Chem 7: 09/29/17 05:41 09/29/17 05:41 Labs: Short CBC 09/29/17 Range/Units 05:41 WBC 14.6 H (4.3-11.1) K/mcL Hgb 11.2 L (11.5-15.4) g/dL Hct 32.9 L (35.3-44.9) % Plt Count 176 (140-400) K/mcL Neutrophils # 11.0 H (1.6-8.9) K/mcL BMP 09/29/17 05:41 Sodium 136 Potassium 3.6 Chloride 101 Carbon Dioxide 29 BUN 13 Creatinine 0.93 Glucose 123 H Calcium 8.1 L Consult Discharge Plan - Plan Referrals: Kaylee Pierre, AML ANALYST [Primary Care Provider] - NONE,PCP [Family Provider] - (1) Sepsis Qualifiers: Sepsis type: sepsis due to unspecified organism Qualified Code(s): A41.9 - Sepsis, unspecified organism (3) Obesity Qualifiers: Obesity type: due to excess calories Obesity classification: adult class 3 ( BMI >= 40) Serious obesity comorbidity presence: without serious comorbidity Body mass index: BMI 45.0-49.9 Qualified Code(s): E66.01 - Morbid (severe) obesity due to excess calories; Z68.42 - Body mass index (BMI) 45.0-49.9, adult (4) GERD (gastroesophageal reflux disease) Qualifiers: Esophagitis presence: esophagitis presence not specified Qualified Code(s): K21.9 - Gastro-esophageal reflux disease without esophagitis (5) HTN (hypertension) Qualifiers: Hypertension type: essential hypertension Qualified Code(s): I10 - Essential (primary) hypertension
[2017-09-29] MEDS: *HR* OxyCODONE Immed Rel 5 MG TABLET PO PRN ×3 (12:03→20:29)
[2017-09-29] MEDS ORDERED: cefTRIAXone 1,000 MG in 0.9 % Sodium Chloride Mini Bag 100 ML IVPB SCH (14:00)
[2017-09-29] MEDS: Acetaminophen 325 MG TABLET PO PRN (17:44)
[2017-09-30] MEDS: *HR* OxyCODONE Immed Rel 5 MG TABLET PO PRN ×5 (00:24→20:36)
[2017-09-30 05:28] LABS: Basophils % 0.2 %; Eosinophils # 0.2 K/mcL (0.0-0.6); Eosinophils % 1.3 %; Hematocrit 29.3 % (35.3-44.9); Hemoglobin 10.1 g/dL (11.5-15.4); Immature Granulocytes % 0.7 % (0-4); Lymphocytes % 17.4 %; Mean Corpuscular HGB Conc 34.5 g/dL (31.6-35.5); Mean Corpuscular Hemoglobin 31.3 pg (28.0-33.3); Mean Corpuscular Volume 90.7 fL (83.0-100.0); Mean Platelet Volume 10.4 fL (9.4-12.4); Monocytes # 0.9 K/mcL (0.0-1.3); Monocytes % 8.2 %; Neutrophils # 8.3 K/mcL (1.6-8.9); Platelet Count 164 K/mcL (140-400); Red Blood Count 3.23 M/mcL (3.82-4.97); Segmented Neutrophils % 72.2 %
[2017-09-30 06:44] LABS: BUN/Creatinine Ratio 18 (6-26); Blood Urea Nitrogen 11 mg/dL (6-20); Calcium 7.9 mg/dL (8.6-10.3); Carbon Dioxide 24 mEq/L (23-29); Chloride 104 mEq/L (98-107); Glucose 110 mg/dL (70-105); Osmolality,Calculated 280 (280-300); Potassium 4.2 mEq/L (3.5-5.1); Sodium 135 mEq/L (136-145); eGFR For Non-African Americans > 60 (> 60)
[2017-09-30] MEDS: Beclomethasone 80mcg MDI IH SCH ×2 (07:41→19:38)
--- NOTE | 2017-09-30 08:28 | Urology Progress Note ---
Date of Encounter: 09/30/17 Time of Encounter: 08:26 - Assessment and Plan (1) Pyelonephritis Current Visit: Yes Status: Acute Assessment and plan: labs appear to be improving. continue rocephin at this time. if patient still with consistent pain and low grade fevers tomorrow will order ct a/p with and without iv contrast. (2) Abdominal pain Current Visit: No Status: Acute Assessment and plan: stable. minimal improvement. Qualifiers: Abdominal location: unspecified location Qualified Code(s): R10.9 - Unspecified abdominal pain (3) UTI (urinary tract infection) Current Visit: No Status: Acute Assessment and plan: continue with current abx. Qualifiers: Urinary tract infection type: acute cystitis Hematuria presence: without hematuria Qualified Code(s): N30.00 - Acute cystitis without hematuria Progress Note Narrative: patient seen. still with LLQ abd pain which she states is about the same. labs improved. still with low grade fevers last night/this morning. Objective Initial Vital Signs Temp Pulse Resp BP Pulse Ox 99.1 F 112 22 100/63 98 09/28/17 12:20 09/28/17 12:20 09/28/17 12:20 09/28/17 12:20 09/28/17 12:20 - General physical appearance Present: well developed, well nourished - Abdomen Present: soft, tender (LLQ) - Integumentary Present: no rash, no abnormal pigmentation - Psychiatric Present: oriented to time, oriented to person, oriented to place - Labs 09/30/17 04:56 09/30/17 04:56 Diabetes panel 09/30/17 Range/Units 04:56 Sodium 135 L (136-145) mEq/L Potassium 4.2 (3.5-5.1) mEq/L Chloride 104 (98-107) mEq/L Carbon Dioxide 24 (23-29) mEq/L BUN 11 (6-20) mg/dL Creatinine 0.60 (0.60-1.20) mg/dL Glucose 110 H (70-105) mg/dL Calcium 7.9 L (8.6-10.3) mg/dL Calcium panel 09/30/17 Range/Units 04:56 Calcium 7.9 L (8.6-10.3) mg/dL Pituitary panel 09/30/17 Range/Units 04:56 Sodium 135 L (136-145) mEq/L Potassium 4.2 (3.5-5.1) mEq/L Chloride 104 (98-107) mEq/L Carbon Dioxide 24 (23-29) mEq/L BUN 11 (6-20) mg/dL Creatinine 0.60 (0.60-1.20) mg/dL Glucose 110 H (70-105) mg/dL Calcium 7.9 L (8.6-10.3) mg/dL Adrenal panel 09/30/17 Range/Units 04:56 Sodium 135 L (136-145) mEq/L Potassium 4.2 (3.5-5.1) mEq/L Chloride 104 (98-107) mEq/L Carbon Dioxide 24 (23-29) mEq/L BUN 11 (6-20) mg/dL Creatinine 0.60 (0.60-1.20) mg/dL Glucose 110 H (70-105) mg/dL Calcium 7.9 L (8.6-10.3) mg/dL Consult Discharge Plan - Plan Referrals: Kaylee Pierre, CHIEF MATE [Primary Care Provider] - NONE,PCP [Family Provider] -
[2017-09-30] MEDS: 0.9 % Sodium Chloride 1,000 ML IVC SCH ×2 (09:09→17:27)
[2017-09-30] MEDS: BuPROPion SR (12 HR) 150 MG TABLET PO SCH ×2 (09:11→20:36)
[2017-09-30] MEDS: cefTRIAXone 2,000 MG in Water for inj. (sterile) 20 ML 20 ML IVP SCH (09:12)
[2017-09-30] MEDS: Furosemide 20 MG TABLET PO SCH (09:12)
[2017-09-30] MEDS: *HR* Heparin 5,000 UNIT/ML VIAL SQ SCH ×2 (09:15→17:28)
[2017-09-30] MEDS: NORETHINDRONE 0.35 MG PO SCH (09:17)
[2017-09-30] MEDS ORDERED: Sennosides/Docusate Sodium TABLET PO PRN (09:23)
--- NOTE | 2017-09-30 11:33 | Internal Med Progress Note ---
<DallinJosh Guillermo - Last Filed: 09/30/17 11:30> Hospitalist Progress Note - Encounter Date of Encounter: 09/30/17 Time of Encounter: 11:30 - Subjective Interval History: 37-year-old female admitted with sepsis secondary to pyelonephritis. Patient reports that she has continued left lower quadrant abdominal pain, but the pain medicine is helping her symptoms. She also reports some constipation. Denies other symptoms denies chest pain, dyspnea, nausea, vomiting, dysuria, or lower extremity edema. - Exam Vitals: Temp Pulse Resp BP Pulse Ox 99.1 F 70 16 87/56 91 09/30/17 07:05 09/30/17 07:05 09/30/17 07:41 09/30/17 07:05 09/30/17 07:41 Exam: GEN: No acute distress, A&O3 HEAD: Atraumatic, normocephalic EYES: Pupils symmetric, sclera white, conjunctiva pink HEART: RRR, normal S1 and S2, no murmurs LUNGS: Clear to auscultation bilaterally, no wheezes, rhonchi, or crackles ABD: Tenderness and guarding in LLQ, no tenderness noted in other locations, bowel sounds present EXT: No edema noted, pulses 2/4 NEURO: No focal deficits, cooperative with exam - Assessment and Plan (1) Sepsis Current Visit: Yes Status: Acute Assessment and Plan: Secondary to acute pyelonephritis, with possible renal abscess CT shows left perinephric edema, and a 2.7 cm ill-defined cystic lesion in the left lower pole, cyst versus abscess Leukocytosis improving, max temp 102.3 in past 24 hours We will check blood cultures Continue Rocephin day #3 Urology following - appreciate recommendations (2) Pyelonephritis Current Visit: Yes Status: Acute Assessment and Plan: As above (3) Renal lesion Current Visit: Yes Status: Acute Assessment and Plan: If patient's pain is not improving will do a CT abdomen/pelvis with and without IV contrast tomorrow (4) HTN (hypertension) Current Visit: Yes Status: Chronic Assessment and Plan: Normotensive, continue home meds (5) GERD (gastroesophageal reflux disease) Current Visit: Yes Status: Chronic Assessment and Plan: Continue home meds DVT Prophylaxis: Subcutaneous heparin - Time Spent with Patient Total time spent is greater than 50% in coordination of care (as documented) at patient's floor/unit and/or counseling patient: Internal Medicine: Result - Labs CBC & Chem 7: 09/30/17 04:56 09/30/17 04:56 Labs: Short CBC 09/30/17 Range/Units 04:56 WBC 11.4 H (4.3-11.1) K/mcL Hgb 10.1 L (11.5-15.4) g/dL Hct 29.3 L (35.3-44.9) % Plt Count 164 (140-400) K/mcL Neutrophils # 8.3 (1.6-8.9) K/mcL BMP 09/30/17 04:56 Sodium 135 L Potassium 4.2 Chloride 104 Carbon Dioxide 24 BUN 11 Creatinine 0.60 Glucose 110 H Calcium 7.9 L Consult Discharge Plan - Plan Referrals: Kaylee Pierre, MOBILE BATTERY TECHNICIAN [Primary Care Provider] - NONE,PCP [Family Provider] - <Inga Taylor - Last Filed: 09/30/17 15:58> Hospitalist Progress Note - Encounter Date of Encounter: 09/30/17 - Exam Vitals: Temp Pulse Resp BP Pulse Ox 98.7 F 85 16 110/76 97 09/30/17 11:46 09/30/17 11:46 09/30/17 11:46 09/30/17 11:46 09/30/17 11:46 - Assessment and Plan (1) Pyelonephritis Current Visit: Yes Status: Acute (2) Sepsis Current Visit: Yes Status: Acute (3) Obesity Current Visit: Yes Status: Chronic (4) Renal lesion Current Visit: Yes Status: Acute (5) HTN (hypertension) Current Visit: Yes Status: Chronic (6) GERD (gastroesophageal reflux disease) Current Visit: Yes Status: Chronic - Time Spent with Patient Total time spent is greater than 50% in coordination of care (as documented) at patient's floor/unit and/or counseling patient: Internal Medicine: Result - Labs CBC & Chem 7: 09/30/17 04:56 09/30/17 04:56 Labs: Short CBC 09/30/17 Range/Units 04:56 WBC 11.4 H (4.3-11.1) K/mcL Hgb 10.1 L (11.5-15.4) g/dL Hct 29.3 L (35.3-44.9) % Plt Count 164 (140-400) K/mcL Neutrophils # 8.3 (1.6-8.9) K/mcL BMP 09/30/17 04:56 Sodium 135 L Potassium 4.2 Chloride 104 Carbon Dioxide 24 BUN 11 Creatinine 0.60 Glucose 110 H Calcium 7.9 L - Attending Attestation I have seen and examined this patient independently. I have discussed with resident physician Dr. Zamarripa regarding the management plan. Agree with the documentation. <Josh Zamarripa R - Last Filed: 09/30/17 11:30> (1) Sepsis Qualifiers: Sepsis type: sepsis due to unspecified organism Qualified Code(s): A41.9 - Sepsis, unspecified organism (4) HTN (hypertension) Qualifiers: Hypertension type: essential hypertension Qualified Code(s): I10 - Essential (primary) hypertension (5) GERD (gastroesophageal reflux disease) Qualifiers: Esophagitis presence: esophagitis presence not specified Qualified Code(s): K21.9 - Gastro-esophageal reflux disease without esophagitis <Inga Taylor - Last Filed: 09/30/17 15:58> (2) Sepsis Qualifiers: Sepsis type: sepsis due to unspecified organism Qualified Code(s): A41.9 - Sepsis, unspecified organism (3) Obesity Qualifiers: Obesity type: due to excess calories Obesity classification: adult class 3 ( BMI >= 40) Serious obesity comorbidity presence: without serious comorbidity Body mass index: BMI 45.0-49.9 Qualified Code(s): E66.01 - Morbid (severe) obesity due to excess calories; Z68.42 - Body mass index (BMI) 45.0-49.9, adult (5) HTN (hypertension) Qualifiers: Hypertension type: essential hypertension Qualified Code(s): I10 - Essential (primary) hypertension (6) GERD (gastroesophageal reflux disease) Qualifiers: Esophagitis presence: esophagitis presence not specified Qualified Code(s): K21.9 - Gastro-esophageal reflux disease without esophagitis
[2017-09-30] MEDS: Acetaminophen 325 MG TABLET PO PRN (17:25)
[2017-09-30] MEDS: Melatonin 3 MG TABLET PO PRN (23:20)
[2017-10-01] MEDS: *HR* OxyCODONE Immed Rel 5 MG TABLET PO PRN ×4 (00:59→20:19)
[2017-10-01] MEDS: Acetaminophen 325 MG TABLET PO PRN ×2 (00:59→15:51)
[2017-10-01 04:46] LABS: Basophils % 0.3 %; Eosinophils # 0.2 K/mcL (0.0-0.6); Eosinophils % 1.5 %; Hematocrit 29.4 % (35.3-44.9); Hemoglobin 10.2 g/dL (11.5-15.4); Immature Granulocytes % 1.2 % (0-4); Lymphocytes # 1.9 K/mcL (0.6-4.6); Lymphocytes % 16.1 %; Mean Corpuscular HGB Conc 34.7 g/dL (31.6-35.5); Mean Corpuscular Hemoglobin 31.2 pg (28.0-33.3); Mean Corpuscular Volume 89.9 fL (83.0-100.0); Mean Platelet Volume 10.1 fL (9.4-12.4); Monocytes % 8.2 %; Neutrophils # 8.7 K/mcL (1.6-8.9); Platelet Count 221 K/mcL (140-400); Red Blood Count 3.27 M/mcL (3.82-4.97); Red Cell Distribution Width 12.9 % (11.5-14.5); Segmented Neutrophils % 72.7 %
[2017-10-01 05:07] LABS: BUN/Creatinine Ratio 15 (6-26); Blood Urea Nitrogen 9 mg/dL (6-20); Carbon Dioxide 25 mEq/L (23-29); Chloride 103 mEq/L (98-107); Glucose 118 mg/dL (70-105); Osmolality,Calculated 276 (280-300); Potassium 3.9 mEq/L (3.5-5.1); Sodium 133 mEq/L (136-145); eGFR For Non-African Americans > 60 (> 60)
[2017-10-01] MEDS: *HR* Heparin 5,000 UNIT/ML VIAL SQ SCH ×2 (05:22→17:46)
[2017-10-01] MEDS ORDERED: Isovue-370 500 ML INFUS..BTL IV ONE (07:05)
--- NOTE | 2017-10-01 07:07 | Urology Progress Note ---
Date of Encounter: 10/01/17 Time of Encounter: 07:06 - Assessment and Plan (1) Pyelonephritis Current Visit: Yes Status: Acute (2) Abdominal pain Current Visit: No Status: Acute Assessment and plan: will obtain ct a/p with iv contrast today. Qualifiers: Abdominal location: unspecified location Qualified Code(s): R10.9 - Unspecified abdominal pain (3) UTI (urinary tract infection) Current Visit: No Status: Acute Qualifiers: Urinary tract infection type: acute cystitis Hematuria presence: without hematuria Qualified Code(s): N30.00 - Acute cystitis without hematuria Progress Note Narrative: patient seen. doing ok. still with LLQ abd pain. patient sleeping this am. no fevers overnight. Objective Initial Vital Signs Temp Pulse Resp BP Pulse Ox 99.1 F 112 22 100/63 98 09/28/17 12:20 09/28/17 12:20 09/28/17 12:20 09/28/17 12:20 09/28/17 12:20 - General physical appearance Present: well developed, well nourished. Absent: no distress - Abdomen Present: soft, tender - Psychiatric Present: oriented to time, oriented to person - Labs 10/01/17 04:20 10/01/17 04:20 Diabetes panel 10/01/17 Range/Units 04:20 Sodium 133 L (136-145) mEq/L Potassium 3.9 (3.5-5.1) mEq/L Chloride 103 (98-107) mEq/L Carbon Dioxide 25 (23-29) mEq/L BUN 9 (6-20) mg/dL Creatinine 0.59 L (0.60-1.20) mg/dL Glucose 118 H (70-105) mg/dL Calcium 8.0 L (8.6-10.3) mg/dL Calcium panel 10/01/17 Range/Units 04:20 Calcium 8.0 L (8.6-10.3) mg/dL Pituitary panel 10/01/17 Range/Units 04:20 Sodium 133 L (136-145) mEq/L Potassium 3.9 (3.5-5.1) mEq/L Chloride 103 (98-107) mEq/L Carbon Dioxide 25 (23-29) mEq/L BUN 9 (6-20) mg/dL Creatinine 0.59 L (0.60-1.20) mg/dL Glucose 118 H (70-105) mg/dL Calcium 8.0 L (8.6-10.3) mg/dL Adrenal panel 10/01/17 Range/Units 04:20 Sodium 133 L (136-145) mEq/L Potassium 3.9 (3.5-5.1) mEq/L Chloride 103 (98-107) mEq/L Carbon Dioxide 25 (23-29) mEq/L BUN 9 (6-20) mg/dL Creatinine 0.59 L (0.60-1.20) mg/dL Glucose 118 H (70-105) mg/dL Calcium 8.0 L (8.6-10.3) mg/dL Consult Discharge Plan - Plan Referrals: Kaylee Pierre, SHANK ARCHER [Primary Care Provider] - NONE,PCP [Family Provider] -
[2017-10-01] MEDS ORDERED: 0.9 % Sodium Chloride 1,000 ML IVC SCH (07:59)
[2017-10-01] MEDS: Furosemide 20 MG TABLET PO SCH (08:03)
[2017-10-01] MEDS: BuPROPion SR (12 HR) 150 MG TABLET PO SCH ×2 (08:03→20:19)
[2017-10-01] MEDS: cefTRIAXone 2,000 MG in Water for inj. (sterile) 20 ML 20 ML IVP SCH (08:03)
[2017-10-01 10:07] LABS: INR 1.1; Prothrombin Time 12.3 Seconds (9.4-12.1)
[2017-10-01 10:10] LABS: Activated Partial Thrombo Time 28.8 Seconds (26.0-36.0)
[2017-10-01] MEDS: Beclomethasone 80mcg MDI IH SCH ×2 (10:45→19:45)
--- NOTE | 2017-10-01 10:59 | Internal Med Progress Note ---
<Gerber Brown - Last Filed: 10/01/17 13:20> Hospitalist Progress Note - Encounter Date of Encounter: 10/01/17 Time of Encounter: 10:00 - Subjective Interval History: 37 year old female with PMHx of asthma + GERD + HTN presents for LLQ abdominal pain. Patient seen and examined this morning. She still complains of pain in the LLQ of her abdomen. Patient's CT showed increased size of renal cystic lesion since 09/28. Patient denies SOB, CP, n/v, numbness/tingling, dysuria, and changes in bowel habits. - Exam Vitals: Temp Pulse Resp BP Pulse Ox 98.9 F 88 16 107/61 100 10/01/17 07:45 10/01/17 07:45 10/01/17 07:45 10/01/17 07:45 10/01/17 07:45 Exam: Gen: mild distress, A&O x3 Heart: RRR, no murmurs appreciated Lungs: CTAB, no wheezing Abdomen: soft, tender to palpation in LLQ, +BS in all 4 quadrants Extremities: normal ROM, strength 5/5 in all extremities, no edema Vascular: pulses +2 in LE bilaterally Neuro: CN II-XII intact - Assessment and Plan (1) Pyelonephritis Current Visit: Yes Status: Acute Assessment and Plan: Urology on consult Continue rocephin (day 4) WBC 11.4 > 11.9 today (2) Sepsis Current Visit: Yes Status: Acute Assessment and Plan: 2/2 pyelonephritis and renal abscess WBC 11.9 Blood cultures pending Continue rocephin (3) Renal lesion Current Visit: Yes Status: Acute Assessment and Plan: CT confirmed increase in size of lesion since 09/28 Likely an abscess IR to drain lesion today Urology consulted Will follow recommendations (4) Obesity Current Visit: Yes Status: Chronic (5) HTN (hypertension) Current Visit: Yes Status: Chronic Assessment and Plan: Continue home meds Normotensive (6) GERD (gastroesophageal reflux disease) Current Visit: Yes Status: Chronic Assessment and Plan: Continue home meds DVT Prophylaxis: Subcutaneous heparin - Time Spent with Patient Total time spent is greater than 50% in coordination of care (as documented) at patient's floor/unit and/or counseling patient: 25 - 35 minutes Plan of Care Discussed with: patient Internal Medicine: Result - Labs CBC & Chem 7: 10/01/17 04:20 10/01/17 04:20 Labs: Short CBC 10/01/17 Range/Units 04:20 WBC 11.9 H (4.3-11.1) K/mcL Hgb 10.2 L (11.5-15.4) g/dL Hct 29.4 L (35.3-44.9) % Plt Count 221 (140-400) K/mcL Neutrophils # 8.7 (1.6-8.9) K/mcL BMP 10/01/17 04:20 Sodium 133 L Potassium 3.9 Chloride 103 Carbon Dioxide 25 BUN 9 Creatinine 0.59 L Glucose 118 H Calcium 8.0 L - ABG Interpretation ABG results: PT/INR, D-dimer PT 12.3 Seconds (9.4-12.1) H 10/01/17 09:34 - Impressions Impressions Abdomen/Pelvis CT 10/01/17 07:05 IMPRESSION: 1. Slight interval increase in size of the patient's complex cystic lesion in the left kidney felt to represent an abscess, now measuring 3.6 x 3.4 cm. 2. No new acute intra-abdominal abnormality. 3. Nonobstructing left nephrolithiasis. D/ / 10/01/2017 08:09:41 Aileen Ramirez MD / triston Interpreting Provider: Aileen Ramirez MD Consult Discharge Plan - Plan Referrals: Kaylee Pierre, DESIGN PRINTING MACHINE SETTER [Primary Care Provider] - NONE,PCP [Family Provider] - <Inga Taylor - Last Filed: 10/01/17 16:02> Hospitalist Progress Note - Encounter Date of Encounter: 10/01/17 - Exam Vitals: Temp Pulse Resp BP Pulse Ox 98.1 F 103 20 128/82 96 10/01/17 12:17 10/01/17 12:17 10/01/17 12:17 10/01/17 12:17 10/01/17 12:17 - Assessment and Plan (1) Pyelonephritis Current Visit: Yes Status: Acute (2) Sepsis Current Visit: Yes Status: Acute (3) Obesity Current Visit: Yes Status: Chronic (4) Renal lesion Current Visit: Yes Status: Acute (5) HTN (hypertension) Current Visit: Yes Status: Chronic (6) GERD (gastroesophageal reflux disease) Current Visit: Yes Status: Chronic - Time Spent with Patient Total time spent is greater than 50% in coordination of care (as documented) at patient's floor/unit and/or counseling patient: Internal Medicine: Result - Labs CBC & Chem 7: 10/01/17 04:20 10/01/17 04:20 Labs: Short CBC 10/01/17 Range/Units 04:20 WBC 11.9 H (4.3-11.1) K/mcL Hgb 10.2 L (11.5-15.4) g/dL Hct 29.4 L (35.3-44.9) % Plt Count 221 (140-400) K/mcL Neutrophils # 8.7 (1.6-8.9) K/mcL BMP 10/01/17 04:20 Sodium 133 L Potassium 3.9 Chloride 103 Carbon Dioxide 25 BUN 9 Creatinine 0.59 L Glucose 118 H Calcium 8.0 L - ABG Interpretation ABG results: PT/INR, D-dimer PT 12.3 Seconds (9.4-12.1) H 10/01/17 09:34 - Impressions Impressions Abdomen/Pelvis CT 10/01/17 07:05 IMPRESSION: 1. Slight interval increase in size of the patient's complex cystic lesion in the left kidney felt to represent an abscess, now measuring 3.6 x 3.4 cm. 2. No new acute intra-abdominal abnormality. 3. Nonobstructing left nephrolithiasis. 4. Trace bilateral effusions with basilar opacities concerning for infection or aspiration. D/ / 10/01/2017 08:09:41 Aileen Ramirez MD / triston Interpreting Provider: Aileen Ramirez MD - Attending Attestation I have seen and examined this patient independently. I have discussed with the resident physician Dr. Brown regarding the management plan. Agree with the documentation. <Gerber Brown - Last Filed: 10/01/17 13:20> (2) Sepsis Qualifiers: Sepsis type: sepsis due to unspecified organism Qualified Code(s): A41.9 - Sepsis, unspecified organism (4) Obesity Qualifiers: Obesity type: due to excess calories Obesity classification: adult class 3 ( BMI >= 40) Serious obesity comorbidity presence: without serious comorbidity Body mass index: BMI 45.0-49.9 Qualified Code(s): E66.01 - Morbid (severe) obesity due to excess calories; Z68.42 - Body mass index (BMI) 45.0-49.9, adult (5) HTN (hypertension) Qualifiers: Hypertension type: essential hypertension Qualified Code(s): I10 - Essential (primary) hypertension (6) GERD (gastroesophageal reflux disease) Qualifiers: Esophagitis presence: esophagitis presence not specified Qualified Code(s): K21.9 - Gastro-esophageal reflux disease without esophagitis <Inga Taylor - Last Filed: 10/01/17 16:02> (2) Sepsis Qualifiers: Sepsis type: sepsis due to unspecified organism Qualified Code(s): A41.9 - Sepsis, unspecified organism (3) Obesity Qualifiers: Obesity type: due to excess calories Obesity classification: adult class 3 ( BMI >= 40) Serious obesity comorbidity presence: without serious comorbidity Body mass index: BMI 45.0-49.9 Qualified Code(s): E66.01 - Morbid (severe) obesity due to excess calories; Z68.42 - Body mass index (BMI) 45.0-49.9, adult (5) HTN (hypertension) Qualifiers: Hypertension type: essential hypertension Qualified Code(s): I10 - Essential (primary) hypertension (6) GERD (gastroesophageal reflux disease) Qualifiers: Esophagitis presence: esophagitis presence not specified Qualified Code(s): K21.9 - Gastro-esophageal reflux disease without esophagitis
--- NOTE | 2017-10-01 11:08 | Pre-Sedation Evaluation ---
Pre-sedation evaluation - Pre-sedation checklist Date of procedure: 10/01/17 Procedure: CT guided left renal abscess drain Recent Vitals: Last Vital Signs Temp 98.9 F 10/01/17 07:45 Pulse 88 10/01/17 07:45 Resp 16 10/01/17 10:56 BP 107/61 10/01/17 07:45 Pulse Ox 100 10/01/17 10:56 H&P (including ROS) documented in medical record: Yes Previous reaction to sedatives/anesthetics: No Dietary Status: NPO 6 hours prior to procedure Dentition: No loose teeth or bridges Possible difficult airway: Yes If Yes;: Morbid obesity, Enlarged neck circumference, short neck ASA Classification *see protocol: CLASS II-Mild systemic disease Cardiac Registry (Cardio Only) - Functional Capacity - Clincal Frailty Scale
[2017-10-01] MEDS ORDERED: 0.9 % Sodium Chloride 500 ML ONE (11:10)
[2017-10-01] MEDS ORDERED: *HR* FentaNYL (PF) 100 MCG/2 ML VIAL IVP ONE (11:18)
[2017-10-01] MEDS ORDERED: *HR* FentaNYL (PF) 100 MCG/2 ML VIAL ONE (11:20)
[2017-10-01] MEDS: Piperacillin/Tazobactam 3.375 GM in 0.9 % Sodium Chloride Mini Bag 100 ML IVPB SCH (16:14)
[2017-10-01] MEDS: 0.9 % Sodium Chloride 1,000 ML IVC SCH (16:14)
--- NOTE | 2017-10-01 16:25 | Event Note ---
Date of Encounter: 10/01/17 Time of Encounter: 15:45 Pt has left kidney abscess drainage today at about 12:30pm. Pt has fever with Temp 103 with tachycatdia 110-120 inthe afternoon. See pt at bed side. In mild pain, mild SOB, fever, SpO2 92% on 4L NC O2. a/p: Left renal abscess s/p IR drainage. 1. Repeat blood culture x 2, lactate stat and repeat in 6 hours. 2. Switch abx to zosyn to cover anaerobic. 3. Start IVF but at low rate with concern of heart function. 4. Cont pulse oximetry and cardiac mornitoring. 5. Pt has sleep time desaturation, she was suspected ALAINA, sleep study was scheduled but not finish yet. Will place her on BiPAP HS and as needed at this point.
[2017-10-02] MEDS: Piperacillin/Tazobactam 3.375 GM in 0.9 % Sodium Chloride Mini Bag 100 ML IVPB SCH ×3 (00:03→17:12)
[2017-10-02] MEDS: Acetaminophen 325 MG TABLET PO PRN ×4 (00:07→21:14)
[2017-10-02] MEDS: 0.9 % Sodium Chloride 1,000 ML IVC SCH ×3 (00:07→21:15)
[2017-10-02] MEDS: Melatonin 3 MG TABLET PO PRN ×2 (00:08→20:39)
[2017-10-02] MEDS: *HR* OxyCODONE Immed Rel 5 MG TABLET PO PRN ×3 (04:13→20:39)
[2017-10-02 04:26] LABS: Basophils % 0.3 %; Eosinophils # 0.2 K/mcL (0.0-0.6); Hematocrit 28.3 % (35.3-44.9); Hemoglobin 9.6 g/dL (11.5-15.4); Immature Granulocytes % 1.1 % (0-4); Lymphocytes # 1.7 K/mcL (0.6-4.6); Lymphocytes % 11.6 %; Mean Corpuscular HGB Conc 33.9 g/dL (31.6-35.5); Mean Corpuscular Hemoglobin 30.1 pg (28.0-33.3); Mean Corpuscular Volume 88.7 fL (83.0-100.0); Mean Platelet Volume 9.8 fL (9.4-12.4); Monocytes % 6.9 %; Neutrophils # 11.7 K/mcL (1.6-8.9); Platelet Count 241 K/mcL (140-400); Red Blood Count 3.19 M/mcL (3.82-4.97); Red Cell Distribution Width 13.1 % (11.5-14.5); Segmented Neutrophils % 79.1 %
[2017-10-02 04:47] LABS: BUN/Creatinine Ratio 13 (6-26); Blood Urea Nitrogen 7 mg/dL (6-20); Carbon Dioxide 27 mEq/L (23-29); Chloride 100 mEq/L (98-107); Glucose 119 mg/dL (70-105); Osmolality,Calculated 275 (280-300); Potassium 3.8 mEq/L (3.5-5.1); Sodium 133 mEq/L (136-145); eGFR For Non-African Americans > 60 (> 60)
[2017-10-02 05:08] LABS: ABG Base Excess 5 mEq/L (-2 to 3); ABG HCO3 30 mEq/L (21-27); ABG Oxygen Saturation 88 % (95-98); ABG PCO2 46 mmHg (35-45); ABG PH 7.42 pH Units (7.32-7.45); ABG PO2 54 mmHg (85-104); ABG TCO2 31 mEq/L (20-26)
[2017-10-02] MEDS: *HR* Heparin 5,000 UNIT/ML VIAL SQ SCH ×2 (06:28→17:13)
--- NOTE | 2017-10-02 07:03 | Urology Progress Note ---
Date of Encounter: 10/02/17 Time of Encounter: 07:01 - Assessment and Plan (1) Pyelonephritis Current Visit: Yes Status: Acute (2) Abdominal pain Current Visit: No Status: Acute Qualifiers: Abdominal location: unspecified location Qualified Code(s): R10.9 - Unspecified abdominal pain (3) UTI (urinary tract infection) Current Visit: No Status: Acute Qualifiers: Urinary tract infection type: acute cystitis Hematuria presence: without hematuria Qualified Code(s): N30.00 - Acute cystitis without hematuria (4) Renal abscess, left Current Visit: Yes Status: Acute Assessment and plan: Status post drainage yesterday minimal output from drain. Continue with drain and broad-spectrum antibiotics. Patient with expected fevers. Progress Note Narrative: Patient seen this morning. Patient with expected fevers overnight after left percutaneous drainage of renal abscess yesterday. Gram stain negative for bacteria. All other cultures have remained negative. Objective Initial Vital Signs Temp Pulse Resp BP Pulse Ox 99.1 F 112 22 100/63 98 09/28/17 12:20 09/28/17 12:20 09/28/17 12:20 09/28/17 12:20 09/28/17 12:20 - General physical appearance Present: well developed, well nourished, no distress - Abdomen Present: soft. Absent: tender - Integumentary Present: no rash, no abnormal pigmentation - Labs 10/02/17 04:02 10/02/17 04:02 Diabetes panel 10/02/17 Range/Units 04:02 Sodium 133 L (136-145) mEq/L Potassium 3.8 (3.5-5.1) mEq/L Chloride 100 (98-107) mEq/L Carbon Dioxide 27 (23-29) mEq/L BUN 7 (6-20) mg/dL Creatinine 0.56 L (0.60-1.20) mg/dL Glucose 119 H (70-105) mg/dL Calcium 8.0 L (8.6-10.3) mg/dL Calcium panel 10/02/17 Range/Units 04:02 Calcium 8.0 L (8.6-10.3) mg/dL Pituitary panel 10/02/17 Range/Units 04:02 Sodium 133 L (136-145) mEq/L Potassium 3.8 (3.5-5.1) mEq/L Chloride 100 (98-107) mEq/L Carbon Dioxide 27 (23-29) mEq/L BUN 7 (6-20) mg/dL Creatinine 0.56 L (0.60-1.20) mg/dL Glucose 119 H (70-105) mg/dL Calcium 8.0 L (8.6-10.3) mg/dL Adrenal panel 10/02/17 Range/Units 04:02 Sodium 133 L (136-145) mEq/L Potassium 3.8 (3.5-5.1) mEq/L Chloride 100 (98-107) mEq/L Carbon Dioxide 27 (23-29) mEq/L BUN 7 (6-20) mg/dL Creatinine 0.56 L (0.60-1.20) mg/dL Glucose 119 H (70-105) mg/dL Calcium 8.0 L (8.6-10.3) mg/dL Consult Discharge Plan - Plan Referrals: Kaylee Pierre, DIRECTOR OF SPECIAL EDUCATION [Primary Care Provider] - NONE,PCP [Family Provider] -
[2017-10-02] MEDS: Beclomethasone 80mcg MDI IH SCH ×2 (08:06→22:35)
[2017-10-02] MEDS: Furosemide 20 MG TABLET PO SCH (08:13)
[2017-10-02] MEDS: BuPROPion SR (12 HR) 150 MG TABLET PO SCH ×2 (08:14→20:39)
--- NOTE | 2017-10-02 09:55 | Internal Med Progress Note ---
Hospitalist Progress Note - Encounter Date of Encounter: 10/02/17 Time of Encounter: 09:51 - Subjective Interval History: Patient seen and examined at bedside. Yesterday patient developed respiratory distress after kidney abscess drainage and was mildly hypoxic. Patient was placed on nasal cannula with improvement of her respiratory status. Patient had overnight BiPAP study and did not qualify per case manager specialist. This morning the patient states that she feels about the same as yesterday. The patient states that she continues to have fevers. Denies any chest pain, current shortness of breath, cough, nausea, vomiting, diarrhea. - Exam Vitals: Temp Pulse Resp BP Pulse Ox 99.5 F 97 17 94/58 91 10/02/17 07:45 10/02/17 07:45 10/02/17 07:45 10/02/17 07:45 10/02/17 08:25 - Assessment and Plan (1) Severe sepsis Current Visit: Yes Status: Acute Assessment and Plan: Patient with severe sepsis secondary to pyelonephritis with renal abscess -Patient met sepsis criteria with respiratory end organ dysfunction most likely secondary to sepsis -Patient continues to be on IV antibiotics IV Rocephin was changed to IV Zosyn yesterday to broaden coverage -Patient continues to be febrile -Status post drainage of left renal abscess yesterday with minimal output -Abscess culture and Gram stain are negative for bacteria is up-to-date -Blood cultures remain negative -Continue to follow blood cultures and abscess culture -If cultures remain negative we will likely consult infectious disease for antibiotic choice and duration (2) Acute respiratory failure with hypoxia Current Visit: Yes Status: Acute Assessment and Plan: The patient developed respiratory distress with hypoxemia and hypoxia -Is most likely secondary to severe sepsis -Pulse ox improved with nasal cannula -Patient did not meet criteria for BiPAP overnight per case manager specialist -Respiratory function improved -Will monitor, currently recieving IV fluids and no suspicion of volume overload -Will dc lasix and continue IVF -If respiratory fxn worsens would likely benefit from non invasive ventilation temporally 2/2 sepsis (3) Renal abscess, left Current Visit: Yes Status: Acute Assessment and Plan: -Status post drainage on 10/01/2017 -Minimal output from draining; mostly serosanguineous -Cultures are negative to date -Gram stain negative for bacteria -Continue IV Zosyn for now -We will consider infectious disease consult if cultures remain negative for antibiotic choice and duration (4) Pyelonephritis Current Visit: Yes Status: Acute Assessment and Plan: -Completed 4 days of Rocephin and currently on day 2 of Zosyn -Cultures are negative to date -Urology following secondary to renal abscess that was drained yesterday, drain remains in place (5) Obesity Current Visit: Yes Status: Chronic Assessment and Plan: Lifestyle modification encouraged (6) HTN (hypertension) Current Visit: Yes Status: Chronic Assessment and Plan: Patient with low normal blood pressures in setting of severe sepsis -We will discontinue Lasix and Zestril for now -Continue IV fluids (7) GERD (gastroesophageal reflux disease) Current Visit: Yes Status: Chronic Assessment and Plan: Continue home meds DVT Prophylaxis: Heparin subcutaneous - Time Spent with Patient Total time spent is greater than 50% in coordination of care (as documented) at patient's floor/unit and/or counseling patient: 25 - 35 minutes Plan of Care Discussed with: patient Internal Medicine: Result - Labs CBC & Chem 7: 10/02/17 04:02 10/02/17 04:02 Labs: Short CBC 10/02/17 Range/Units 04:02 WBC 14.8 H (4.3-11.1) K/mcL Hgb 9.6 L (11.5-15.4) g/dL Hct 28.3 L (35.3-44.9) % Plt Count 241 (140-400) K/mcL Neutrophils # 11.7 H (1.6-8.9) K/mcL BMP 10/02/17 04:02 Sodium 133 L Potassium 3.8 Chloride 100 Carbon Dioxide 27 BUN 7 Creatinine 0.56 L Glucose 119 H Calcium 8.0 L - ABG Interpretation ABG results: ABG ABG pH 7.42 pH Units (7.32-7.45) 10/02/17 05:05 ABG pCO2 46 mmHg (35-45) H 10/02/17 05:05 ABG pO2 54 mmHg (85-104) L 10/02/17 05:05 ABG O2 Saturation 88 % (95-98) L 10/02/17 05:05 PT/INR, D-dimer PT 12.3 Seconds (9.4-12.1) H 10/01/17 09:34 - Impressions Impressions Abscess Drainage CT 10/01/17 00:00 IMPRESSION: Successful CT guided left renal abscess drainage as described above. Approximately 5 cc of purulent appearing fluid fluid was removed. The catheter was left to suction bulb. D/ / Kayode Monroy / Kayode Monroy Interpreting Provider: Kayode Monroy Abdomen/Pelvis CT 10/01/17 07:05 IMPRESSION: 1. Slight interval increase in size of the patient's complex cystic lesion in the left kidney felt to represent an abscess, now measuring 3.6 x 3.4 cm. 2. No new acute intra-abdominal abnormality. 3. Nonobstructing left nephrolithiasis. 4. Trace bilateral effusions with basilar opacities concerning for infection or aspiration. D/ / 10/01/2017 08:09:41 Aileen Ramirez MD / triston Interpreting Provider: Aileen Ramirez MD Consult Discharge Plan - Plan Referrals: Kaylee Pierre, STABILIZING MACHINE OPERATOR [Primary Care Provider] - NONE,PCP [Family Provider] - (5) Obesity Qualifiers: Obesity type: due to excess calories Obesity classification: adult class 3 ( BMI >= 40) Serious obesity comorbidity presence: without serious comorbidity Body mass index: BMI 45.0-49.9 Qualified Code(s): E66.01 - Morbid (severe) obesity due to excess calories; Z68.42 - Body mass index (BMI) 45.0-49.9, adult (6) HTN (hypertension) Qualifiers: Hypertension type: essential hypertension Qualified Code(s): I10 - Essential (primary) hypertension (7) GERD (gastroesophageal reflux disease) Qualifiers: Esophagitis presence: esophagitis presence not specified Qualified Code(s): K21.9 - Gastro-esophageal reflux disease without esophagitis
[2017-10-03] MEDS: Piperacillin/Tazobactam 3.375 GM in 0.9 % Sodium Chloride Mini Bag 100 ML IVPB SCH ×4 (00:06→23:09)
[2017-10-03 05:43] LABS: Basophils % 0.3 %; Eosinophils # 0.2 K/mcL (0.0-0.6); Eosinophils % 1.3 %; Hematocrit 28.4 % (35.3-44.9); Hemoglobin 9.5 g/dL (11.5-15.4); Immature Granulocytes % 2.3 % (0-4); Lymphocytes # 1.6 K/mcL (0.6-4.6); Lymphocytes % 9.9 %; Mean Corpuscular HGB Conc 33.5 g/dL (31.6-35.5); Mean Corpuscular Hemoglobin 30.9 pg (28.0-33.3); Mean Corpuscular Volume 92.5 fL (83.0-100.0); Mean Platelet Volume 10.2 fL (9.4-12.4); Monocytes # 1.1 K/mcL (0.0-1.3); Neutrophils # 12.7 K/mcL (1.6-8.9); Platelet Count 265 K/mcL (140-400); Red Blood Count 3.07 M/mcL (3.82-4.97); Red Cell Distribution Width 13.3 % (11.5-14.5); Segmented Neutrophils % 79.2 %
[2017-10-03 05:48] LABS: BUN/Creatinine Ratio 14 (6-26); Blood Urea Nitrogen 8 mg/dL (6-20); Carbon Dioxide 28 mEq/L (23-29); Chloride 102 mEq/L (98-107); Glucose 118 mg/dL (70-105); Osmolality,Calculated 277 (280-300); Sodium 134 mEq/L (136-145); eGFR For Non-African Americans > 60 (> 60)
[2017-10-03] MEDS: *HR* Heparin 5,000 UNIT/ML VIAL SQ SCH ×2 (06:22→17:26)
[2017-10-03] MEDS: Acetaminophen 325 MG TABLET PO PRN ×2 (06:25→21:08)
[2017-10-03] MEDS: *HR* OxyCODONE Immed Rel 5 MG TABLET PO PRN ×2 (07:16→15:54)
[2017-10-03] MEDS: BuPROPion SR (12 HR) 150 MG TABLET PO SCH ×2 (07:57→21:01)
[2017-10-03] MEDS: 0.9 % Sodium Chloride 1,000 ML IVC SCH ×3 (07:58→23:08)
--- NOTE | 2017-10-03 09:16 | Urology Progress Note ---
<Briana Deng N - Last Filed: 10/03/17 09:13> Date of Encounter: 10/03/17 Time of Encounter: 08:15 - Assessment and Plan (1) Renal abscess, left Current Visit: Yes Status: Acute Assessment and plan: Patient is a 37-year-old female who is 2 days status post nephrostomy tube placement for a left renal abscess. Fluid from the nephrostomy tube was cultured and is positive for gram-negative rods. We will continue IV antibiotics, and I have counseled the patient that she would not be eligible for discharge until she is at least 24 hours afebrile. Progress Note Subjective: no new complaints, pain is less, tolerating liquids well, tolerating a regular diet Narrative: Patient seen and examined sitting upright in chair eating breakfast. Patient complaining of diaphoresis secondary to fever trending down. Patient states pain is somewhat improved and is well controlled at present. Patient is tolerating normal diet and voiding without difficulty. Patient denies significant pain, chills, nausea, vomiting, diarrhea. States she passed normal BM x 1 this morning. Objective Initial Vital Signs Temp Pulse Resp BP Pulse Ox 99.1 F 112 22 100/63 98 09/28/17 12:20 09/28/17 12:20 09/28/17 12:20 09/28/17 12:20 09/28/17 12:20 - General physical appearance Present: well developed, no distress, no pain, obese - Respiratory Present: normal expansion - Abdomen Present: soft, non tender - Genitourinary Present: other (Nephrostomy tube properly secured and draining bloody serosanguinous fluid ) - Integumentary Present: no rash, no abnormal pigmentation - Musculoskeletal Present: normal posture - Psychiatric Present: oriented to time, oriented to person, oriented to place, speech is normal - Labs 10/03/17 04:39 10/03/17 04:39 Diabetes panel 10/03/17 Range/Units 04:39 Sodium 134 L (136-145) mEq/L Potassium 4.0 (3.5-5.1) mEq/L Chloride 102 (98-107) mEq/L Carbon Dioxide 28 (23-29) mEq/L BUN 8 (6-20) mg/dL Creatinine 0.56 L (0.60-1.20) mg/dL Glucose 118 H (70-105) mg/dL Calcium 8.0 L (8.6-10.3) mg/dL Calcium panel 10/03/17 Range/Units 04:39 Calcium 8.0 L (8.6-10.3) mg/dL Pituitary panel 10/03/17 Range/Units 04:39 Sodium 134 L (136-145) mEq/L Potassium 4.0 (3.5-5.1) mEq/L Chloride 102 (98-107) mEq/L Carbon Dioxide 28 (23-29) mEq/L BUN 8 (6-20) mg/dL Creatinine 0.56 L (0.60-1.20) mg/dL Glucose 118 H (70-105) mg/dL Calcium 8.0 L (8.6-10.3) mg/dL Adrenal panel 10/03/17 Range/Units 04:39 Sodium 134 L (136-145) mEq/L Potassium 4.0 (3.5-5.1) mEq/L Chloride 102 (98-107) mEq/L Carbon Dioxide 28 (23-29) mEq/L BUN 8 (6-20) mg/dL Creatinine 0.56 L (0.60-1.20) mg/dL Glucose 118 H (70-105) mg/dL Calcium 8.0 L (8.6-10.3) mg/dL Consult Discharge Plan - Plan Referrals: Kaylee Pierre, SOFTWARE QUALITY ASSURANCE ENGINEER [Primary Care Provider] - NONE,PCP [Family Provider] - <Jax Mansfield - Last Filed: 10/03/17 11:27> Date of Encounter: 10/03/17 - Assessment and Plan (1) Renal abscess, left Current Visit: Yes Status: Acute Assessment and plan: Patient was seen and examined by myself. Agree with above plan. Abscess is growing out Gram negative rods. Continue antibiotics. Will follow. Objective Initial Vital Signs Temp Pulse Resp BP Pulse Ox 99.1 F 112 22 100/63 98 09/28/17 12:20 09/28/17 12:20 09/28/17 12:20 09/28/17 12:20 09/28/17 12:20 - Labs 10/03/17 04:39 10/03/17 04:39 Diabetes panel 10/03/17 Range/Units 04:39 Sodium 134 L (136-145) mEq/L Potassium 4.0 (3.5-5.1) mEq/L Chloride 102 (98-107) mEq/L Carbon Dioxide 28 (23-29) mEq/L BUN 8 (6-20) mg/dL Creatinine 0.56 L (0.60-1.20) mg/dL Glucose 118 H (70-105) mg/dL Calcium 8.0 L (8.6-10.3) mg/dL Calcium panel 10/03/17 Range/Units 04:39 Calcium 8.0 L (8.6-10.3) mg/dL Pituitary panel 10/03/17 Range/Units 04:39 Sodium 134 L (136-145) mEq/L Potassium 4.0 (3.5-5.1) mEq/L Chloride 102 (98-107) mEq/L Carbon Dioxide 28 (23-29) mEq/L BUN 8 (6-20) mg/dL Creatinine 0.56 L (0.60-1.20) mg/dL Glucose 118 H (70-105) mg/dL Calcium 8.0 L (8.6-10.3) mg/dL Adrenal panel 10/03/17 Range/Units 04:39 Sodium 134 L (136-145) mEq/L Potassium 4.0 (3.5-5.1) mEq/L Chloride 102 (98-107) mEq/L Carbon Dioxide 28 (23-29) mEq/L BUN 8 (6-20) mg/dL Creatinine 0.56 L (0.60-1.20) mg/dL Glucose 118 H (70-105) mg/dL Calcium 8.0 L (8.6-10.3) mg/dL
[2017-10-03] MEDS: Beclomethasone 80mcg MDI IH SCH ×2 (10:07→20:08)
--- NOTE | 2017-10-03 11:19 | Internal Med Progress Note ---
Hospitalist Progress Note - Encounter Date of Encounter: 10/03/17 Time of Encounter: 11:15 - Subjective Interval History: Patient seen and examined at bedside. Patient states that overall she feels slightly improved from yesterday. However the patient continues to have intermittent fevers with 101.5 degrees Fahrenheit this morning. Patient was informed that she will not be able to be discharged until afebrile for 24 hours. Patient denies any chest pain, nausea, vomiting. Patient continues to have some discomfort around the drain site and the left lower abdomen. Patient states that she no longer feels short of breath as she did yesterday however still on nasal cannula. - Exam Vitals: Temp Pulse Resp BP Pulse Ox 97.7 F 92 18 110/72 90 10/03/17 07:43 10/03/17 07:43 10/03/17 10:08 10/03/17 07:43 10/03/17 10:08 Exam: Constitutional: No acute distress, Alert, appears much more comfortable than yesterday, not toxic appearing Psych: AAO x 3 Neck: supple Cardio: regular rate and rhythm, +s1s2, no murmurs/rubs/gallops, no JVD Resp: clear to ascultation bilaterally, no wheezes/rales/ronchi Abd: soft, non tender/non distended, positive bowel sounds, no gaurding/reboud/ ridgitity, left-sided drain in place without surrounding erythema draining a small amount of serosanguineous fluid Extremities: no clubbing/cyanosis/edema appreciated Neuro: no focal deficits appreciated Lymph: no cervical/supraclavicular adenopahty apprecitated - Assessment and Plan (1) Severe sepsis Current Visit: Yes Status: Acute Assessment and Plan: Patient with severe sepsis secondary to pyelonephritis with renal abscess -Patient met sepsis criteria with respiratory end organ dysfunction most likely secondary to sepsis -Patient continues to be on IV antibiotics IV Rocephin was changed to IV Zosyn on 10/01 to broaden coverage -Patient continues to be febrile -Status post drainage of left renal abscess yesterday with minimal output of serosanguineous fluid -Abscess culture currently showing gram-negative rods -Blood cultures remain negative -Continue to follow blood cultures and abscess culture -Infectious disease consultation for antibiotic selection and duration with recommendations (2) Acute respiratory failure with hypoxia Current Visit: Yes Status: Acute Assessment and Plan: The patient developed respiratory distress with hypoxemia and hypoxia -Is most likely secondary to severe sepsis -Pulse ox improved with nasal cannula -Patient did not meet criteria for BiPAP after eval per case mananger -Respiratory function improved and in no distress today -Will monitor, currently recieving IV fluids and no suspicion of volume overload ; will decrease ivf -Will dc lasix and continue IVF; likely dc ivf tomorrow (3) Renal abscess, left Current Visit: Yes Status: Acute Assessment and Plan: -Status post drainage on 10/01/2017 -Minimal output from draining; mostly serosanguineous -Culture growing gram-negative rods -Continue IV Zosyn for now -Infectious disease consult for recommendations and antibiotic choice and duration (4) Pyelonephritis Current Visit: Yes Status: Acute Assessment and Plan: -Completed 4 days of Rocephin and currently on day 2 of Zosyn -Cultures are negative to date; abcess cx showing gram neg rods -Urology following secondary to renal abscess that was drained yesterday, drain remains in place -d/w urology regarding drain duration (5) Obesity Current Visit: Yes Status: Chronic Assessment and Plan: Lifestyle modification encouraged (6) HTN (hypertension) Current Visit: Yes Status: Chronic Assessment and Plan: Patient with low normal blood pressures in setting of severe sepsis -We will discontinue Lasix and Zestril for now -Continue IV fluids (7) GERD (gastroesophageal reflux disease) Current Visit: Yes Status: Chronic Assessment and Plan: Continue home meds - Time Spent with Patient Total time spent is greater than 50% in coordination of care (as documented) at patient's floor/unit and/or counseling patient: 25 - 35 minutes Plan of Care Discussed with: patient Internal Medicine: Result - Labs CBC & Chem 7: 10/03/17 04:39 10/03/17 04:39 Labs: Short CBC 10/03/17 Range/Units 04:39 WBC 16.0 H (4.3-11.1) K/mcL Hgb 9.5 L (11.5-15.4) g/dL Hct 28.4 L (35.3-44.9) % Plt Count 265 (140-400) K/mcL Neutrophils # 12.7 H (1.6-8.9) K/mcL BMP 10/03/17 04:39 Sodium 134 L Potassium 4.0 Chloride 102 Carbon Dioxide 28 BUN 8 Creatinine 0.56 L Glucose 118 H Calcium 8.0 L - ABG Interpretation ABG results: ABG ABG pH 7.42 pH Units (7.32-7.45) 10/02/17 05:05 ABG pCO2 46 mmHg (35-45) H 10/02/17 05:05 ABG pO2 54 mmHg (85-104) L 10/02/17 05:05 ABG O2 Saturation 88 % (95-98) L 10/02/17 05:05 PT/INR, D-dimer PT 12.3 Seconds (9.4-12.1) H 10/01/17 09:34 Consult Discharge Plan - Plan Referrals: Kaylee Pierre, WRAPPER LEAF INSPECTOR [Primary Care Provider] - NONE,PCP [Family Provider] - (5) Obesity Qualifiers: Obesity type: due to excess calories Obesity classification: adult class 3 ( BMI >= 40) Serious obesity comorbidity presence: without serious comorbidity Body mass index: BMI 45.0-49.9 Qualified Code(s): E66.01 - Morbid (severe) obesity due to excess calories; Z68.42 - Body mass index (BMI) 45.0-49.9, adult (6) HTN (hypertension) Qualifiers: Hypertension type: essential hypertension Qualified Code(s): I10 - Essential (primary) hypertension (7) GERD (gastroesophageal reflux disease) Qualifiers: Esophagitis presence: esophagitis presence not specified Qualified Code(s): K21.9 - Gastro-esophageal reflux disease without esophagitis
--- NOTE | 2017-10-03 11:24 | Infectious Disease Consult ---
Date of Encounter: 10/03/17 Time of Encounter: 11:00 Infectious Disease HPI - Data of Consult Requesting Physician: Umair Bond Primary Care Provider: Kaylee Pierre CNP Family Provider: PCP NONE - Consult Narrative History of present illness: Ms. Hi is a 37 year old female CC: Umair Bond Past Med Surg Social Fam HX - Past Medical History Medical history: asthma, GERD, hypertension Psychiatric history: no psych history, anxiety, depression - Social History Smoking Status: Unknown if ever smoked Smokeless Tobacco Status: No Alcohol use: none - Family History Mother Hx Family Cardiac Disorders: Yes ([place]) Father Living Status: Still Living Infectious Disease-CN:Meds Albuterol Sulfate [Ventolin Hfa] 2 puff IH Q6H PRN 09/28/17 [History] BuPROPion SR (12 HR) [Wellbutrin SR] 150 mg PO BID 09/28/17 [History] Citalopram Hydrobromide [Celexa] 40 mg PO DAILY 09/28/17 [History] Cyclobenzaprine HCl 5 mg PO DAILY PRN 09/28/17 [History] Fluticasone Propionate [Flovent Hfa] 2 puff IH BID 09/28/17 [History] Furosemide [Lasix] 20 mg PO DAILY 09/28/17 [History] Lisinopril [Zestril] 10 mg PO DAILY 09/28/17 [History] Norethindrone [Cathy] 0.35 mg PO DAILY 09/28/17 [History] Omeprazole [PriLOSEC] 20 mg PO DAILY 09/28/17 [History] Potassium Chloride [K-Tab ER] 20 meq PO DAILY 09/28/17 [History] 3 Allergy/AdvReac Type Severity Reaction Status Date / Time sulfamethoxazole Allergy Hives Verified 09/28/17 10:39 [From Bactrim] trimethoprim [From Bactrim] Allergy Hives Verified 09/28/17 10:39 Exam - Constitutional Vitals: Temp Pulse Resp BP Pulse Ox 97.7 F 92 18 110/72 90 10/03/17 07:43 10/03/17 07:43 10/03/17 10:08 10/03/17 07:43 10/03/17 10:08 Infectious Disease CN: Results - Labs CBC & Chem 7: 10/03/17 04:39 10/03/17 04:39 Cultures: Cultures 10/01/17 11:40 Body Fluid Culture - Preliminary Other-Specify in Comments Gram Negative Vincent 10/01/17 16:15 Blood Culture - Preliminary Peripheral Venipuncture Culture is incubating and being continuously monitored for growth. Final report to follow. 10/01/17 16:12 Blood Culture - Preliminary Peripheral Venipuncture Culture is incubating and being continuously monitored for growth. Final report to follow. 10/01/17 04:10 Blood Culture - Preliminary Peripheral Venipuncture Culture is incubating and being continuously monitored for growth. Final report to follow. 10/01/17 04:20 Blood Culture - Preliminary Peripheral Venipuncture Culture is incubating and being continuously monitored for growth. Final report to follow. Consult Discharge Plan - Plan Referrals: Kaylee Pierre, FORESTRY BIOLOGY SPECIALIST [Primary Care Provider] - NONE,PCP [Family Provider] -
--- NOTE | 2017-10-03 13:28 | Infectious Disease Consult ---
Date of Encounter: 10/03/17 Time of Encounter: 11:00 Assessment and Plan (1) Sepsis Status: Acute Assessment and plan: The patient had two SIRS criteria on admission. Likely secondary to left renal abscess. WBC initially trended down, but back up to 16 today. Continues to have fevers with Tmax 101.5 today. Tachycardia resolved. Blood cultures drawn 10/01/17 x 4 sets are NGTD. Qualifiers: Sepsis type: sepsis due to unspecified organism Qualified Code(s): A41.9 - Sepsis, unspecified organism (2) Renal abscess, left Status: Acute Assessment and plan: Location: Left kidney lower pole. Etiology unclear. Patient denies history of UTI or urinary symptoms. CT of the abdomen and pelvis 09/28/17 showed a cystic lesion within the lower pole of the left kidney consistent with simple cyst vs. abscess. Repeat CT of the abdomen and pelvis 10/01/17 showed slight improvement in the cyst , but the index of suspicion for abscess increased with the use of IV contrast. Urology consulted. Recommendations noted. IR consulted. Status post CT-guided drain placement 10/01/17 with 5ml of pus drained. Culture pending. Gram stain shows GNR. Check HIV status. Continue Zosyn 3.375 grams IV Q8H. Duration of treatment depends on the clinical picture. Monitor renal function and dose-adjust antibiotics. Further recommendations from the ID team to follow pending clinical outcomes and culture results. (3) Pyelonephritis Status: Acute Assessment and plan: Location: Left kidney. Causative organism unclear. Urine not sent for culture since the UA appeared contaminated. GNR on the renal abscess culture. Await final ID and sensitivities. Antibiotics as above. (4) Acute respiratory failure with hypoxia Status: Acute Assessment and plan: Etiology unclear. High index of suspicion for ALAINA. Management per the primary team. (5) Obesity Status: Chronic Qualifiers: Obesity type: due to excess calories Obesity classification: adult class 3 (BMI >= 40) Serious obesity comorbidity presence: without serious comorbidity Body mass index: BMI 45.0-49.9 Qualified Code(s): E66.01 - Morbid (severe) obesity due to excess calories; Z68.42 - Body mass index (BMI) 45.0-49.9, adult (6) GERD (gastroesophageal reflux disease) Status: Chronic Qualifiers: Esophagitis presence: esophagitis presence not specified Qualified Code(s) : K21.9 - Gastro-esophageal reflux disease without esophagitis (7) HTN (hypertension) Status: Chronic Qualifiers: Hypertension type: essential hypertension Qualified Code(s): I10 - Essential (primary) hypertension Infectious Disease HPI - Data of Consult Patient: new to practice Consult date: 10/03/17 Requesting Physician: Umair Bond Primary Care Provider: Kaylee Pierre CNP Family Provider: PCP NONE - Consult Narrative Reason for consult: Renal abscess History of present illness: Ms. Hi is a 37 year old female with a past medical history of asthma, GERD, HTN, remote history of cellulitis with bacteremia, and obesity. The patient was admitted to the hospital 09/28/17 for pyelonephritis. We are consulted 10/03/17 for further recommendations for renal abscess. Briefly, the patient is a 37 year old female with a past medical history as stated above. The patient presented to the hospital on the day of admission with a 3 day history of LLQ, left flank and left CVA pain and fever. She originally went to Urgent Care and was diagnosed with a UTI and advised to come to the ER for a CT Scan to rule out diverticulitis. Upon arrival, the paitent had a low-grade fever, was tachycardic and tachypneic, and had leukocytosis with neutrophilic predominance. Lactic acid and renal function were normal. Urinalysis was positive for small amount of blood, large amount of leukocyte esterase but no nitrites, TNTC WBC, many epithelial cells, and many bacteria. No culture was sent. No blood cultures were done. She had a CT of the abdomen and pelvis that showed mild left perinephric edema concerning for pyelonephritis with a 2.7 cm cyst within the lower pole of the left kidney consistent with simple cyst vs. abscess. She was started empirically on IV Rocephin and admitted to the hospital for further evaluation. Since admission, the patient's WBC initially improved, but has gone back up to 16 today. She continued to have fevers. Urology was consulted and a repeat CT of the abdomen and pelvis was completed 10/01/17 with contrast that showed slight decrease in the cyst-like structure concerning for abscess. IR was consulted and a drain was placed. Approximately 5ml of pus was drained and sent for culture. Gram stain is positive for GNR. Because the patient continued to have fevers, her antibiotics were escalated to IV Zosyn on 10/01/17. She also developed some respiratory distress and required BIPAP post-drain placement. Blood cultures drawn x4 sets on 10/01/17 are NGTD. The patient continued to have intermittent fevers with Tmax of 101.5 in the last 24 hours. We've been asked to evaluate and make further recommendations. During my exam today, the patient states that overall she feels a little better. She endorses the history as stated above. She reports fevers with chills and rigors. Denies headache, neck pain, congestion, earache, or sore throat. Denies chest pain, shortness of breath, or cough. Denies nausea, vomiting, or diarrhea. Denies abdominal or suprapubic pain. Reports that the pain was mainly to the left flank with radiation around to her back and was constant and sharp. She denies alleviating factors and states movement made it worse. She denies vaginal bleeding or discharge. States her LMP was three weeks ago. Denies dysuria, hematuria, or urinary frequency. Denies oral thrush or skin lesions. The patient lives at home with her mother. She does not currently work outside the home. She denies chronic infectious history. She reports she is not currently sexually active but has had two male partners in the past year. She denies tobacco, alcohol, or illicit drug use. CC: Umair Bond Past Med Surg Social Fam HX - Past Medical History Attestation: Yes The following information was validated with the patient. Source: patient, old records reviewed, nursing notes reviewed Medical history: asthma, GERD, hypertension, other (LLE cellulitis with bacteremia and "sepsis pneumonia") Psychiatric history: no psych history, anxiety, depression - Past Surgical History Surgical History: no surgical history - Social History Smoking Status: Never smoker Smokeless Tobacco Status: No Alcohol use: none Drug use: none Occupational status: unemployed Current living situation: Home, With Family Activity Level: Independent ambulation Recent Out of Country Travel Within the Last 8 Weeks: No Exposure or Possible Exposure to Illness During Travel: No - Family History Mother Hx Family Cardiac Disorders: Yes ([place]) Father Living Status: Still Living Infectious Disease-CN:Meds Albuterol Sulfate [Ventolin Hfa] 2 puff IH Q6H PRN 09/28/17 [History] BuPROPion SR (12 HR) [Wellbutrin SR] 150 mg PO BID 09/28/17 [History] Citalopram Hydrobromide [Celexa] 40 mg PO DAILY 09/28/17 [History] Cyclobenzaprine HCl 5 mg PO DAILY PRN 09/28/17 [History] Fluticasone Propionate [Flovent Hfa] 2 puff IH BID 09/28/17 [History] Furosemide [Lasix] 20 mg PO DAILY 09/28/17 [History] Lisinopril [Zestril] 10 mg PO DAILY 09/28/17 [History] Norethindrone [Cathy] 0.35 mg PO DAILY 09/28/17 [History] Omeprazole [PriLOSEC] 20 mg PO DAILY 09/28/17 [History] Potassium Chloride [K-Tab ER] 20 meq PO DAILY 09/28/17 [History] 3 Allergy/AdvReac Type Severity Reaction Status Date / Time sulfamethoxazole Allergy Hives Verified 09/28/17 10:39 [From Bactrim] trimethoprim [From Bactrim] Allergy Hives Verified 09/28/17 10:39 All systems: reviewed and no additional remarkable complaints except as stated Exam - Constitutional Vitals: Temp Pulse Resp BP Pulse Ox 98.5 F 87 26 108/64 95 10/03/17 11:52 10/03/17 11:52 10/03/17 11:52 10/03/17 11:52 10/03/17 11:52 General appearance: cooperative, morbidly obese, no acute distress - Head Head exam: Present: atraumatic, normal inspection, normocephalic - Eye Eye exam: Present: EOMI, normal appearance, PERRL Pupils: Present: normal accommodation - ENT ENT exam: Present: mucous membranes moist - Neck Neck exam: Present: normal inspection - Respiratory Respiratory exam: Present: CTAB. Absent: rales, respiratory distress, rhonchi, wheezes - Cardiovascular Cardiovascular exam: Present: RRR, +S1, +S2 - GI/Abdominal GI/Abdominal exam: Present: distended (obese), normal bowel sounds, soft. Absent: tenderness - Extremities Exam Extremities exam: Present: normal inspection. Absent: joint swelling, pedal edema, tenderness - Back Exam Back exam: Present: CVA tenderness (L) Additional comments: Left CVA drain with scant bloody purulent drainage noted. - Neurological Exam Neurological exam: Present: alert, oriented X3, no focal deficits - Psychiatric Psychiatric exam: Present: normal affect, normal mood - Skin Skin exam: Present: dry, intact, normal color, warm Infectious Disease CN: Results - Labs CBC & Chem 7: 10/03/17 04:39 10/03/17 04:39 Cultures: Cultures 10/01/17 11:40 Body Fluid Culture - Preliminary Other-Specify in Comments Gram Negative Vincent 10/01/17 16:15 Blood Culture - Preliminary Peripheral Venipuncture Culture is incubating and being continuously monitored for growth. Final report to follow. 10/01/17 16:12 Blood Culture - Preliminary Peripheral Venipuncture Culture is incubating and being continuously monitored for growth. Final report to follow. 10/01/17 04:10 Blood Culture - Preliminary Peripheral Venipuncture Culture is incubating and being continuously monitored for growth. Final report to follow. 10/01/17 04:20 Blood Culture - Preliminary Peripheral Venipuncture Culture is incubating and being continuously monitored for growth. Final report to follow. Consult Discharge Plan - Plan Referrals: Kaylee Pierre, BAIT PAINTER [Primary Care Provider] - NONE,PCP [Family Provider] - - Attending Attestation I examined this patient and my medical decision-making was reviewed with the Ana Amaya CNP I agree with the documented findings, disposition and treatment plan as described except to the extent set forth below. This is an addendum to original report dictated by Ana Amaya CNP. Please refer to Ana's note for full detail. Patient is a 7-year-old woman who has multiple psychiatric disease and tells me she is prone to recurrent infections apparently was in usual state of health until Sunday which started having left flank pain and fevers and chills. Patient denies any urinary symptoms. Patient was evaluated by urgent care and was sent to the ED for CAT scan. Patient had sepsis on admission. Patient also had a CT of the abdomen and pelvis on September 28 which showed a cystic lesion within the lower lobe of the left kidney consistent with a simple cyst versus abscess. Patient underwent CT-guided drain placement on October 01 with 5 mL pus drained and cultures were sent which showed gram-negative rods. Patient was initially on Rocephin but was still febrile in the doing well so they switch her to Zosyn. We were asked to evaluate the patient and make further recommendations. Assessment and plan: Sepsis Renal abscess in the left status post CT-guided drain placement on 10/01 less 18 culture showing gram-negative vincent ID not finalized Pyelonephritis Depression Morbid obesity with a BMI of 49 Allergies to Bactrim states that she had a rash Recommendations: At this point continue Zosyn Await cultures from the CT-guided drain placement; Will tailor antibiotics based on the culture results Duration of treatment likely at least 2 weeks Patient will likely need a power glide forward to discharge Await blood cultures to finalize first Check HIV status Patient tells me she has had multiple partners in the last year.
[2017-10-03] MEDS: Melatonin 3 MG TABLET PO PRN (23:08)
[2017-10-04 05:21] LABS: Basophils % 0.2 %; Eosinophils # 0.3 K/mcL (0.0-0.6); Eosinophils % 2.5 %; Hematocrit 27.8 % (35.3-44.9); Hemoglobin 9.3 g/dL (11.5-15.4); Lymphocytes # 1.9 K/mcL (0.6-4.6); Lymphocytes % 15.7 %; Mean Corpuscular HGB Conc 33.5 g/dL (31.6-35.5); Mean Corpuscular Hemoglobin 31.3 pg (28.0-33.3); Mean Corpuscular Volume 93.6 fL (83.0-100.0); Mean Platelet Volume 10.2 fL (9.4-12.4); Monocytes # 0.9 K/mcL (0.0-1.3); Monocytes % 7.7 %; Neutrophils # 8.3 K/mcL (1.6-8.9); Platelet Count 294 K/mcL (140-400); Red Blood Count 2.97 M/mcL (3.82-4.97); Red Cell Distribution Width 13.5 % (11.5-14.5); Segmented Neutrophils % 68.9 %
[2017-10-04] MEDS: *HR* OxyCODONE Immed Rel 5 MG TABLET PO PRN (05:26)
[2017-10-04] MEDS: *HR* Heparin 5,000 UNIT/ML VIAL SQ SCH ×2 (05:27→17:33)
[2017-10-04 05:45] LABS: BUN/Creatinine Ratio 13 (6-26); Blood Urea Nitrogen 7 mg/dL (6-20); Calcium 8.1 mg/dL (8.6-10.3); Carbon Dioxide 26 mEq/L (23-29); Chloride 103 mEq/L (98-107); Glucose 122 mg/dL (70-105); Osmolality,Calculated 281 (280-300); Sodium 136 mEq/L (136-145); eGFR For Non-African Americans > 60 (> 60)
--- NOTE | 2017-10-04 07:51 | Urology Progress Note ---
<Briana Deng N - Last Filed: 10/04/17 07:49> Date of Encounter: 10/04/17 Time of Encounter: 07:49 - Assessment and Plan (1) Renal abscess, left Current Visit: Yes Status: Acute Assessment and plan: Patient is a 37 year old female 3 days status post nephrostomy tube placement for a left renal abscess. Blood cultures are still pending. WBC count decreased to 12.0 from 16.0. Patient has remained afebrile throughout the night. Will consider discharge pending blood culture results. Progress Note Subjective: no new complaints, feels better, pain is less, tolerating a regular diet, afebrile Narrative: Patient was seen and examined sitting upright in bed in no apparent distress. Patient states feeling much better. Denies any pain, fevers, chills, diaphoresis, difficulty voiding. Patient is tolerating normal diet. Patient verbalizes desire for discharge. Objective Initial Vital Signs Temp Pulse Resp BP Pulse Ox 99.1 F 112 22 100/63 98 09/28/17 12:20 09/28/17 12:20 09/28/17 12:20 09/28/17 12:20 09/28/17 12:20 - General physical appearance Present: well developed, no distress, no pain - Respiratory Present: normal expansion, normal respiratory effort - Abdomen Present: soft, non tender - Genitourinary Present: other (Left flank wound dressing clean/dry/intact. Drain tubing with scant amount of bloody serosanguinous fluid ) - Integumentary Present: no rash, no abnormal pigmentation - Musculoskeletal Present: normal posture - Psychiatric Present: oriented to time, oriented to person, oriented to place, speech is normal - Labs 10/04/17 04:36 10/04/17 04:36 Diabetes panel 10/04/17 Range/Units 04:36 Sodium 136 (136-145) mEq/L Potassium 4.0 (3.5-5.1) mEq/L Chloride 103 (98-107) mEq/L Carbon Dioxide 26 (23-29) mEq/L BUN 7 (6-20) mg/dL Creatinine 0.54 L (0.60-1.20) mg/dL Glucose 122 H (70-105) mg/dL Calcium 8.1 L (8.6-10.3) mg/dL Calcium panel 10/04/17 Range/Units 04:36 Calcium 8.1 L (8.6-10.3) mg/dL Pituitary panel 10/04/17 Range/Units 04:36 Sodium 136 (136-145) mEq/L Potassium 4.0 (3.5-5.1) mEq/L Chloride 103 (98-107) mEq/L Carbon Dioxide 26 (23-29) mEq/L BUN 7 (6-20) mg/dL Creatinine 0.54 L (0.60-1.20) mg/dL Glucose 122 H (70-105) mg/dL Calcium 8.1 L (8.6-10.3) mg/dL Adrenal panel 10/04/17 Range/Units 04:36 Sodium 136 (136-145) mEq/L Potassium 4.0 (3.5-5.1) mEq/L Chloride 103 (98-107) mEq/L Carbon Dioxide 26 (23-29) mEq/L BUN 7 (6-20) mg/dL Creatinine 0.54 L (0.60-1.20) mg/dL Glucose 122 H (70-105) mg/dL Calcium 8.1 L (8.6-10.3) mg/dL Consult Discharge Plan - Plan Referrals: Kaylee Pierre, BUSINESS OFFICE MANAGER [Primary Care Provider] - NONE,PCP [Family Provider] - <Amadeo Alexis - Last Filed: 10/04/17 11:57> Date of Encounter: 10/04/17 - Assessment and Plan (1) Pyelonephritis Current Visit: Yes Status: Acute (2) Abdominal pain Current Visit: No Status: Acute Qualifiers: Abdominal location: unspecified location Qualified Code(s): R10.9 - Unspecified abdominal pain (3) UTI (urinary tract infection) Current Visit: No Status: Acute Qualifiers: Urinary tract infection type: acute cystitis Hematuria presence: without hematuria Qualified Code(s): N30.00 - Acute cystitis without hematuria (4) Renal abscess, left Current Visit: Yes Status: Acute Assessment and plan: Patient was seen independently and examined. At this point patient's culture has returned Escherichia coli with sensitivity to Levaquin. Recommend for patient to be on 3 weeks of 500 mg Levaquin. Patient okay to discharge from urology standpoint. She can follow up next Sunday at 9 AM for drain removal. Objective Initial Vital Signs Temp Pulse Resp BP Pulse Ox 99.1 F 112 22 100/63 98 09/28/17 12:20 09/28/17 12:20 09/28/17 12:20 09/28/17 12:20 09/28/17 12:20 - Labs 10/04/17 04:36 10/04/17 04:36 Diabetes panel 10/04/17 Range/Units 04:36 Sodium 136 (136-145) mEq/L Potassium 4.0 (3.5-5.1) mEq/L Chloride 103 (98-107) mEq/L Carbon Dioxide 26 (23-29) mEq/L BUN 7 (6-20) mg/dL Creatinine 0.54 L (0.60-1.20) mg/dL Glucose 122 H (70-105) mg/dL Calcium 8.1 L (8.6-10.3) mg/dL Calcium panel 10/04/17 Range/Units 04:36 Calcium 8.1 L (8.6-10.3) mg/dL Pituitary panel 10/04/17 Range/Units 04:36 Sodium 136 (136-145) mEq/L Potassium 4.0 (3.5-5.1) mEq/L Chloride 103 (98-107) mEq/L Carbon Dioxide 26 (23-29) mEq/L BUN 7 (6-20) mg/dL Creatinine 0.54 L (0.60-1.20) mg/dL Glucose 122 H (70-105) mg/dL Calcium 8.1 L (8.6-10.3) mg/dL Adrenal panel 10/04/17 Range/Units 04:36 Sodium 136 (136-145) mEq/L Potassium 4.0 (3.5-5.1) mEq/L Chloride 103 (98-107) mEq/L Carbon Dioxide 26 (23-29) mEq/L BUN 7 (6-20) mg/dL Creatinine 0.54 L (0.60-1.20) mg/dL Glucose 122 H (70-105) mg/dL Calcium 8.1 L (8.6-10.3) mg/dL
[2017-10-04] MEDS: BuPROPion SR (12 HR) 150 MG TABLET PO SCH ×2 (08:49→21:56)
[2017-10-04] MEDS: Piperacillin/Tazobactam 3.375 GM in 0.9 % Sodium Chloride Mini Bag 100 ML IVPB SCH (08:49)
[2017-10-04] MEDS: Beclomethasone 80mcg MDI IH SCH ×2 (10:25→19:51)
--- NOTE | 2017-10-04 12:20 | Infectious Disease Progress No ---
Date of Encounter: 10/04/17 Time of Encounter: 12:18 - Assessment and Plan (1) Sepsis Current Visit: Yes Status: Acute The patient had two SIRS criteria on admission. Likely secondary to left renal abscess. WBC trending down. Afebrile overnight. Tachycardia resolved. Blood cultures drawn 10/01/17 x 4 sets are NGTD. Qualifiers: Sepsis type: sepsis due to unspecified organism Qualified Code(s): A41.9 - Sepsis, unspecified organism (2) Renal abscess, left Current Visit: Yes Status: Acute Location: Left kidney lower pole. Etiology unclear. Patient denies history of UTI or urinary symptoms. CT of the abdomen and pelvis 09/28/17 showed a cystic lesion within the lower pole of the left kidney consistent with simple cyst vs. abscess. Repeat CT of the abdomen and pelvis 10/01/17 showed slight improvement in the cyst , but the index of suspicion for abscess increased with the use of IV contrast. Urology consulted. Recommendations noted. IR consulted. Status post CT-guided drain placement 10/01/17 with 5ml of pus drained. Culture positive for Escherichia coli, resistant to ampicillin. Check HIV status.--> Pending. Discontinue Zosyn. Start Levaquin 750 mg IV daily. Start Flagyl 500 mg by mouth 3 times a day. Duration of treatment depends on the clinical picture. Monitor renal function and dose-adjust antibiotics. (3) Pyelonephritis Current Visit: Yes Status: Acute Location: Left kidney. Causative Escherichia coli. Antibiotics as above. (4) Acute respiratory failure with hypoxia Current Visit: Yes Status: Acute Etiology unclear. High index of suspicion for ALAINA. Get Chest x-ray. Management per the primary team. (5) Obesity Current Visit: Yes Status: Chronic Qualifiers: Obesity type: due to excess calories Obesity classification: adult class 3 (BMI >= 40) Serious obesity comorbidity presence: without serious comorbidity Body mass index: BMI 45.0-49.9 Qualified Code(s): E66.01 - Morbid (severe) obesity due to excess calories; Z68.42 - Body mass index (BMI) 45.0-49.9, adult (6) GERD (gastroesophageal reflux disease) Current Visit: Yes Status: Chronic Qualifiers: Esophagitis presence: esophagitis presence not specified Qualified Code(s) : K21.9 - Gastro-esophageal reflux disease without esophagitis (7) HTN (hypertension) Current Visit: Yes Status: Chronic Qualifiers: Hypertension type: essential hypertension Qualified Code(s): I10 - Essential (primary) hypertension - Subjective Interval history: Patient seen and examined. No acute events noted overnight. Patient states she feels a little better today. Denies any fevers or chills or rigors overnight. Reports some shortness of breath, but denies cough or chest pain. Denies abdominal pain, urinary complaints, or appetite changes. Denies nausea or vomiting or diarrhea. Reports some pain in her left flank and lower back and some itching around the drain tube. Denies oral thrush or skin lesions. Infect Dis PN-Objective Data - Labs CBC & Chem 7: 10/04/17 04:36 10/04/17 04:36 Labs: Laboratory Results - last 24 hr 10/04/17 10/04/17 04:36 04:36 WBC 12.0 H RBC 2.97 L Hgb 9.3 L Hct 27.8 L MCV 93.6 MCH 31.3 MCHC 33.5 RDW 13.5 Plt Count 294 MPV 10.2 Immature Gran % 5.0 H Seg Neutrophils % 68.9 Lymphocytes % 15.7 Monocytes % 7.7 Eosinophils % 2.5 Basophils % 0.2 Neutrophils # 8.3 Lymphocytes # 1.9 Monocytes # 0.9 Eosinophils # 0.3 Basophils # 0.0 Sodium 136 Potassium 4.0 Chloride 103 Carbon Dioxide 26 BUN 7 Creatinine 0.54 L Est GFR ( Amer) > 60 Est GFR (Non-Af Amer) > 60 BUN/Creatinine Ratio 13 Glucose 122 H Calculated Osmolality 281 Calcium 8.1 L Cultures: Cultures 10/01/17 11:40 Anaerobic Culture - Preliminary Left Kidney At this time, no anaerobic growth is present. The culture will be finalized after 5 days of incubation. 10/01/17 11:40 Body Fluid Culture - Final Other-Specify in Comments Escherichia coli 10/01/17 16:15 Blood Culture - Preliminary Peripheral Venipuncture Culture is incubating and being continuously monitored for growth. Final report to follow. 10/01/17 16:12 Blood Culture - Preliminary Peripheral Venipuncture Culture is incubating and being continuously monitored for growth. Final report to follow. 10/01/17 04:10 Blood Culture - Preliminary Peripheral Venipuncture Culture is incubating and being continuously monitored for growth. Final report to follow. 10/01/17 04:20 Blood Culture - Preliminary Peripheral Venipuncture Culture is incubating and being continuously monitored for growth. Final report to follow. Exam - Constitutional Vitals: Temp Pulse Resp BP Pulse Ox 97.7 F 87 26 119/79 96 10/04/17 10:40 10/04/17 10:40 10/04/17 10:40 10/04/17 10:40 10/04/17 10:40 General appearance: cooperative, morbidly obese, no acute distress - Head Head exam: Present: atraumatic, normal inspection, normocephalic - Eye Eye exam: Present: EOMI, normal appearance, PERRL Pupils: Present: normal accommodation - ENT ENT exam: Present: mucous membranes moist - Neck Neck exam: Present: normal inspection - Respiratory Respiratory exam: Present: CTAB. Absent: rales, respiratory distress, rhonchi, wheezes - Cardiovascular Cardiovascular exam: Present: RRR, +S1, +S2 - GI/Abdominal GI/Abdominal exam: Present: distended (Obese), normal bowel sounds, soft. Absent: tenderness - Extremities Exam Extremities exam: Present: normal inspection. Absent: joint swelling, pedal edema, tenderness - Back Exam Back exam: Present: CVA tenderness (L). Absent: paraspinal tenderness, vertebral tenderness Additional comments: KINGA drain noted to the left flank with scant amount of seropurulent drainage noted. Tenderness noted at the drain site. No surrounding erythema, warmth, or open sores. Dressing remains intact. - Neurological Exam Neurological exam: Present: alert, oriented X3, no focal deficits - Psychiatric Psychiatric exam: Present: normal affect, normal mood - Skin Skin exam: Present: dry, intact, normal color, warm Consult Discharge Plan - Plan Referrals: Kaylee Pierre, WATER AEROBICS INSTRUCTOR [Primary Care Provider] - NONE,PCP [Family Provider] -
[2017-10-04] MEDS: Levofloxacin 750 MG/150 ML 750 MG/150 ML BAG IVPB SCH (12:41)
--- NOTE | 2017-10-04 13:01 | Internal Med Progress Note ---
Hospitalist Progress Note - Encounter Date of Encounter: 10/04/17 Time of Encounter: 12:58 - Subjective Interval History: Patient seen and examined at bedside. Patient states that overall she feels like she is improving. Patient no overnight events. Patient denies any chest pain patient has been afebrile, patient denies any nausea vomiting, abdominal pain. Patient very dyspneic with exertion but not at rest. Heart rate is improved and is normal now and the patient has been afebrile for 24 hours. - Exam Vitals: Temp Pulse Resp BP Pulse Ox 97.7 F 87 26 119/79 96 10/04/17 10:40 10/04/17 10:40 10/04/17 10:40 10/04/17 10:40 10/04/17 10:40 Exam: Constitutional: No acute distress, Alert Psych: AAO x 3 HEENT: NCA Neck: supple, no JVD Cardio: regular rate and rhythm, +s1s2, no murmurs/rubs/gallops, no JVD Resp: clear to ascultation bilaterally, no wheezes/rales/ronchi; no labored breathing at rest however patient does become dyspneic with exertion as she had just gotten back in bed from the restroom Abd: soft, non tender/non distended, positive bowel sounds, no gaurding/reboud/ ridgitity, no flank pain, left sided renal abcess drain with scant serosanquinous drainage Extremities: no clubbing/cyanosis/edema appreciated Neuro: no focal deficits appreciated - Assessment and Plan (1) Severe sepsis Current Visit: Yes Status: Acute Assessment and Plan: Patient with severe sepsis secondary to pyelonephritis with renal abscess -Patient met sepsis criteria with respiratory end organ dysfunction most likely secondary to sepsis -Patient continues to be on IV antibiotics IV Rocephin was changed to IV Zosyn on 10/01 to broaden coverage -Patient has now been afebrile for 24 hours -Status post drainage of left renal abscess yesterday with only scant output of serosanguineous fluid -Abscess culture with ecoli -Blood cultures remain negative -Continue to follow blood cultures and abscess culture -Infectious disease de-esclated abx to levaquin and flagyl -sepsis is resolved (2) Acute respiratory failure with hypoxia Current Visit: Yes Status: Acute Assessment and Plan: The patient developed respiratory distress with hypoxemia and hypoxia -Is most likely secondary to severe sepsis -Pulse ox improved with nasal cannula -Respiratory function improved and in no distress today -wean oxygen -dc ivf; likely resume lasix tomorrow -cxr pending ordered by ID (3) Renal abscess, left Current Visit: Yes Status: Acute Assessment and Plan: -Status post drainage on 10/01/2017 -Minimal output from draining; mostly serosanguineous -d/w urology to determine if drain can be removed soon -Culture growing ecoli -abx changed to flagyl and levaquin per ID (4) Pyelonephritis Current Visit: Yes Status: Acute Assessment and Plan: -Completed 4 days of Rocephin and 2 days of Zosyn; now abx de-esclated to levaquin/flagyl per ID -Cultures are negative to date; abcess cx showing ecoli -Urology following secondary to renal abscess that was drained yesterday, drain remains in place -d/w urology regarding drain duration (5) Obesity Current Visit: Yes Status: Chronic Assessment and Plan: Lifestyle modification encouraged (6) HTN (hypertension) Current Visit: Yes Status: Chronic Assessment and Plan: Patient with low normal blood pressures in setting of severe sepsis -We will discontinue Lasix and Zestril for now -ivf dced today, likely resume lasix tomorrow (7) GERD (gastroesophageal reflux disease) Current Visit: Yes Status: Chronic Assessment and Plan: Continue home meds DVT Prophylaxis: hep sq - Time Spent with Patient Total time spent is greater than 50% in coordination of care (as documented) at patient's floor/unit and/or counseling patient: 25 - 35 minutes Plan of Care Discussed with: patient Internal Medicine: Result - Labs CBC & Chem 7: 10/04/17 04:36 10/04/17 04:36 Labs: Short CBC 10/04/17 Range/Units 04:36 WBC 12.0 H (4.3-11.1) K/mcL Hgb 9.3 L (11.5-15.4) g/dL Hct 27.8 L (35.3-44.9) % Plt Count 294 (140-400) K/mcL Neutrophils # 8.3 (1.6-8.9) K/mcL BMP 10/04/17 04:36 Sodium 136 Potassium 4.0 Chloride 103 Carbon Dioxide 26 BUN 7 Creatinine 0.54 L Glucose 122 H Calcium 8.1 L - ABG Interpretation ABG results: ABG ABG pH 7.42 pH Units (7.32-7.45) 10/02/17 05:05 ABG pCO2 46 mmHg (35-45) H 10/02/17 05:05 ABG pO2 54 mmHg (85-104) L 10/02/17 05:05 ABG O2 Saturation 88 % (95-98) L 10/02/17 05:05 PT/INR, D-dimer PT 12.3 Seconds (9.4-12.1) H 10/01/17 09:34 Consult Discharge Plan - Plan Referrals: Kaylee Pierre, GOLF CADDY [Primary Care Provider] - NONE,PCP [Family Provider] - (5) Obesity Qualifiers: Obesity type: due to excess calories Obesity classification: adult class 3 ( BMI >= 40) Serious obesity comorbidity presence: without serious comorbidity Body mass index: BMI 45.0-49.9 Qualified Code(s): E66.01 - Morbid (severe) obesity due to excess calories; Z68.42 - Body mass index (BMI) 45.0-49.9, adult (6) HTN (hypertension) Qualifiers: Hypertension type: essential hypertension Qualified Code(s): I10 - Essential (primary) hypertension (7) GERD (gastroesophageal reflux disease) Qualifiers: Esophagitis presence: esophagitis presence not specified Qualified Code(s): K21.9 - Gastro-esophageal reflux disease without esophagitis
[2017-10-04] MEDS: MetroNIDAZOLE 500 MG/100 ML 500 MG/100 ML BAG IVPB SCH ×2 (15:21→21:57)
[2017-10-04] MEDS: Melatonin 3 MG TABLET PO PRN (23:27)
[2017-10-05] MEDS: *HR* OxyCODONE Immed Rel 5 MG TABLET PO PRN ×2 (03:51→22:24)
[2017-10-05 05:32] LABS: Hemoglobin 9.9 g/dL (11.5-15.4); Lymphocytes # 1.9 K/mcL (0.6-4.6); Mean Corpuscular Hemoglobin 30.4 pg (28.0-33.3); Mean Platelet Volume 9.8 fL (9.4-12.4); Nucleated Red Blood Cells 0.2 /100 WBC (0); Platelet Count 352 K/mcL (140-400); Red Blood Count 3.26 M/mcL (3.82-4.97); Red Cell Distribution Width 13.3 % (11.5-14.5)
[2017-10-05 05:47] LABS: BUN/Creatinine Ratio 17 (6-26); Blood Urea Nitrogen 9 mg/dL (6-20); Calcium 8.6 mg/dL (8.6-10.3); Carbon Dioxide 27 mEq/L (23-29); Chloride 103 mEq/L (98-107); Glucose 121 mg/dL (70-105); Osmolality,Calculated 282 (280-300); Sodium 136 mEq/L (136-145); eGFR For Non-African Americans > 60 (> 60)
[2017-10-05] MEDS: *HR* Heparin 5,000 UNIT/ML VIAL SQ SCH ×2 (05:53→18:39)
[2017-10-05 06:18] LABS: Large Platelets Present (Not Present); Monocytes # 0.5 K/mcL (0.0-1.3); Neutrophils # 9.1 K/mcL (1.6-8.9); Platelet Estimate Normal (Normal); Smudge Cells Present (Not Present)
--- NOTE | 2017-10-05 07:53 | Event Note ---
Date of Encounter: 10/05/17 Time of Encounter: 07:30 Patient seen and examined sitting upright in bed in no apparent distress. Patient states she is feeling much better. Patient complains of fatigue as she is unable to sleep well in the hospital. I discussed follow-up with Dr. Alexis next week for drain removal, and explained she will be discharged on antibiotics. The patient states she is awaiting hospitalist evaluation for possible discharge.
--- NOTE | 2017-10-05 08:51 | Internal Med Progress Note ---
Hospitalist Progress Note - Encounter Date of Encounter: 10/05/17 Time of Encounter: 08:46 - Subjective Interval History: Patient seen and examined at bedside. Patient no acute overnight events. Patient remains afebrile. Patient states that she has no chest pain. Patient however is very short of breath with exertion. Patient desatted into the mid to high 80s with oxygen on from walking to the bathroom yesterday. IV fluids were discontinued yesterday and the patient's Lasix was restarted this morning. Patient denies any nausea, vomiting, abdominal pain. Drain remains in place. Urology saw the patient who recommends drain removal outpatient in the office next week. - Exam Vitals: Temp Pulse Resp BP Pulse Ox 98.3 F 81 17 109/73 92 10/05/17 07:47 10/05/17 07:47 10/05/17 07:47 10/05/17 07:47 10/05/17 07:47 Exam: Constitutional: No acute distress, Alert Psych: AAO x 3 HEENT: NCAT, EOMI Neck: supple, no JVD Cardio: regular rate and rhythm, +s1s2, no murmurs/rubs/gallops, no JVD Resp: Decreased breath sounds in the bases no respiratory distress at rest, Abd: soft, non tender/non distended, positive bowel sounds, left-sided renal drain remains in place draining small amount of serosanguineous fluid Extremities: no clubbing/cyanosis/edema appreciated Neuro: no focal deficits appreciated - Assessment and Plan (1) Severe sepsis Current Visit: Yes Status: Acute Assessment and Plan: Patient with severe sepsis secondary to pyelonephritis with renal abscess -Patient met sepsis criteria with respiratory end organ dysfunction most likely secondary to sepsis -Patient continues to be on IV antibiotics IV Rocephin was changed to IV Zosyn on 10/01 to broaden coverage -Patient has now been afebrile for 48 hours -Status post drainage of left renal abscess with only scant output of serosanguineous fluid -Abscess culture with ecoli -Blood cultures remain negative -Continue to follow blood cultures and abscess culture -Continue levaquin and flagyl -sepsis is resolved -Infectious disease following (2) Acute respiratory failure with hypoxia Current Visit: Yes Status: Acute Assessment and Plan: The patient developed respiratory distress with hypoxemia and hypoxia -Is most likely secondary to severe sepsis however now with evidence of pulmonary edema on imaging -Strongly suspect some component of obesity hypoventilation syndrome contributing to her hypoxia; BiPAP ordered at nighttime however patient did not tolerate -IV fluids were discontinued yesterday and patient's Lasix was resumed this morning -We will give an additional dose of Lasix this evening -Maintain oxygen supplementation on nasal cannula and wean as tolerated to maintain the pain saturation above 93% -Will likely be stable for discharge once off oxygen -No respiratory distress (3) Renal abscess, left Current Visit: Yes Status: Acute Assessment and Plan: -Status post drainage on 10/01/2017 -Minimal output from draining; mostly serosanguineous -Culture growing ecoli -Continue flagyl and levaquin per ID -Maintain drain until outpatient follow-up with urology next week to have drain removed -Infectious disease and urology following (4) Pyelonephritis Current Visit: Yes Status: Acute Assessment and Plan: -Completed 4 days of Rocephin and 2 days of Zosyn; now abx de-esclated to levaquin/flagyl per ID -Cultures are negative to date; abcess cx showing ecoli -Urology following -Intubated removed and urology office next week as outpatient (5) Obesity Current Visit: Yes Status: Chronic Assessment and Plan: Lifestyle modification encouraged -Likely obesity hypoventilation syndrome contributing to her respiratory hypoxia (6) HTN (hypertension) Current Visit: Yes Status: Chronic Assessment and Plan: Patient with low normal blood pressures in setting of severe sepsis -Continue home meds, Lasix restarted we will give additional dose of Lasix this evening (7) GERD (gastroesophageal reflux disease) Current Visit: Yes Status: Chronic Assessment and Plan: Continue home meds - Time Spent with Patient Total time spent is greater than 50% in coordination of care (as documented) at patient's floor/unit and/or counseling patient: 25 - 35 minutes Plan of Care Discussed with: patient Internal Medicine: Result - Labs CBC & Chem 7: 10/05/17 05:00 10/05/17 05:00 Labs: Short CBC 10/05/17 Range/Units 05:00 WBC 11.7 H (4.3-11.1) K/mcL Hgb 9.9 L (11.5-15.4) g/dL Hct 30.0 L (35.3-44.9) % Plt Count 352 (140-400) K/mcL Neutrophils # 9.1 H (1.6-8.9) K/mcL BMP 10/05/17 05:00 Sodium 136 Potassium 4.0 Chloride 103 Carbon Dioxide 27 BUN 9 Creatinine 0.54 L Glucose 121 H Calcium 8.6 - ABG Interpretation ABG results: ABG ABG pH 7.42 pH Units (7.32-7.45) 10/02/17 05:05 ABG pCO2 46 mmHg (35-45) H 10/02/17 05:05 ABG pO2 54 mmHg (85-104) L 10/02/17 05:05 ABG O2 Saturation 88 % (95-98) L 10/02/17 05:05 PT/INR, D-dimer PT 12.3 Seconds (9.4-12.1) H 10/01/17 09:34 - Impressions Impressions Chest X-Ray 10/04/17 12:23 IMPRESSION: Findings most compatible with pulmonary edema and/or pneumonia with small bilateral pleural effusions. D/ / Jax Montiel MD / Jax Montiel MD Interpreting Provider: Jax Monitel MD Consult Discharge Plan - Plan Referrals: Kaylee Pierre, CHEMICAL LABORATORY TECHNICIAN [Primary Care Provider] - NONE,PCP [Family Provider] - (5) Obesity Qualifiers: Obesity type: due to excess calories Obesity classification: adult class 3 ( BMI >= 40) Serious obesity comorbidity presence: without serious comorbidity Body mass index: BMI 45.0-49.9 Qualified Code(s): E66.01 - Morbid (severe) obesity due to excess calories; Z68.42 - Body mass index (BMI) 45.0-49.9, adult (6) HTN (hypertension) Qualifiers: Hypertension type: essential hypertension Qualified Code(s): I10 - Essential (primary) hypertension (7) GERD (gastroesophageal reflux disease) Qualifiers: Esophagitis presence: esophagitis presence not specified Qualified Code(s): K21.9 - Gastro-esophageal reflux disease without esophagitis
[2017-10-05 09:02] LABS: C-Reactive Protein 87 mg/L (Less than 10)
[2017-10-05] MEDS: BuPROPion SR (12 HR) 150 MG TABLET PO SCH ×2 (09:26→22:24)
[2017-10-05] MEDS: Furosemide 20 MG TABLET PO SCH (09:26)
[2017-10-05] MEDS: metroNIDAZOLE 500 MG TABLET PO SCH ×3 (09:26→22:24)
--- NOTE | 2017-10-05 09:41 | Infectious Disease Progress No ---
Date of Encounter: 10/05/17 Time of Encounter: 08:50 - Assessment and Plan (1) Sepsis Current Visit: Yes Status: Acute The patient had two SIRS criteria on admission. Likely secondary to left renal abscess. WBC trending down. Afebrile overnight. Tachycardia resolved. Blood cultures drawn 10/01/17 x 4 sets are NGTD. Qualifiers: Sepsis type: sepsis due to unspecified organism Qualified Code(s): A41.9 - Sepsis, unspecified organism (2) Renal abscess, left Current Visit: Yes Status: Acute Location: Left kidney lower pole. Etiology unclear. Patient denies history of UTI or urinary symptoms. CT of the abdomen and pelvis 09/28/17 showed a cystic lesion within the lower pole of the left kidney consistent with simple cyst vs. abscess. Repeat CT of the abdomen and pelvis 10/01/17 showed slight improvement in the cyst , but the index of suspicion for abscess increased with the use of IV contrast. Urology consulted. Recommendations noted. IR consulted. Status post CT-guided drain placement 10/01/17 with 5ml of pus drained. Culture positive for Escherichia coli, resistant to ampicillin. Check HIV status.--> Pending. Continue Levaquin 750 mg IV daily. Continue Flagyl 500 mg by mouth 3 times a day. Duration of treatment depends on the clinical picture, but likely a total of 14 days from the insertion of the drain tube. If anaerobic cultures finalize and are negative prior to discharge, can discontinue flagyl. Can transition to PO Levaquin when ready for discharge to complete course of antibiotics. Monitor renal function and dose-adjust antibiotics. (3) Pyelonephritis Current Visit: Yes Status: Acute Location: Left kidney. Causative Escherichia coli. Antibiotics as above. (4) Acute respiratory failure with hypoxia Current Visit: Yes Status: Acute Etiology unclear. High index of suspicion for ALAINA. CXR shows pulmonary edema vs. PNA. Likely pulmonary edema based on clinical picture, but Levaquin will cover the patient for CAP. Management per the primary team. (5) Obesity Current Visit: Yes Status: Chronic Qualifiers: Obesity type: due to excess calories Obesity classification: adult class 3 (BMI >= 40) Serious obesity comorbidity presence: without serious comorbidity Body mass index: BMI 45.0-49.9 Qualified Code(s): E66.01 - Morbid (severe) obesity due to excess calories; Z68.42 - Body mass index (BMI) 45.0-49.9, adult (6) GERD (gastroesophageal reflux disease) Current Visit: Yes Status: Chronic Qualifiers: Esophagitis presence: esophagitis presence not specified Qualified Code(s) : K21.9 - Gastro-esophageal reflux disease without esophagitis (7) HTN (hypertension) Current Visit: Yes Status: Chronic Qualifiers: Hypertension type: essential hypertension Qualified Code(s): I10 - Essential (primary) hypertension - Subjective Interval history: Patient seen and examined. No acute events noted overnight. Patient states she feels a little better today. Denies any fevers or chills or rigors overnight. Reports some shortness of breath on exertion, but denies cough or chest pain. Denies abdominal pain, urinary complaints, or appetite changes. Denies nausea or vomiting or diarrhea. Reports some pain in her left flank and lower back and some itching around the drain tube. Denies oral thrush or skin lesions. States she was very restless through the night and didn't get much sleep. She states she is very tired this morning. Infect Dis PN-Objective Data - Labs CBC & Chem 7: 10/05/17 05:00 10/05/17 05:00 Labs: Laboratory Results - last 24 hr 10/05/17 10/05/17 10/05/17 05:00 05:00 05:00 WBC 11.7 H RBC 3.26 L Hgb 9.9 L Hct 30.0 L MCV 92.0 MCH 30.4 MCHC 33.0 RDW 13.3 Plt Count 352 MPV 9.8 Seg Neutrophils % 76.0 Band Neutrophils % 2.0 Lymphocytes % 16.0 Monocytes % 4.0 Metamyelocytes % 2.0 H Neutrophils # 9.1 H Lymphocytes # 1.9 Monocytes # 0.5 Nucleated RBCs/100 WBC 0.2 H Smudge Cells Present A Platelet Estimate Normal Large Platelets Present A ESR 76 H Sodium 136 Potassium 4.0 Chloride 103 Carbon Dioxide 27 BUN 9 Creatinine 0.54 L Est GFR ( Amer) > 60 Est GFR (Non-Af Amer) > 60 BUN/Creatinine Ratio 17 Glucose 121 H Calculated Osmolality 282 Calcium 8.6 C-Reactive Protein 87 H Cultures: Cultures 10/01/17 11:40 Anaerobic Culture - Preliminary Left Kidney At this time, no anaerobic growth is present. The culture will be finalized after 5 days of incubation. 10/01/17 11:40 Body Fluid Culture - Final Other-Specify in Comments Escherichia coli 10/01/17 16:15 Blood Culture - Preliminary Peripheral Venipuncture Culture is incubating and being continuously monitored for growth. Final report to follow. 10/01/17 16:12 Blood Culture - Preliminary Peripheral Venipuncture Culture is incubating and being continuously monitored for growth. Final report to follow. 10/01/17 04:10 Blood Culture - Preliminary Peripheral Venipuncture Culture is incubating and being continuously monitored for growth. Final report to follow. 10/01/17 04:20 Blood Culture - Preliminary Peripheral Venipuncture Culture is incubating and being continuously monitored for growth. Final report to follow. - Impressions Impressions Chest X-Ray 10/04/17 12:23 IMPRESSION: Findings most compatible with pulmonary edema and/or pneumonia with small bilateral pleural effusions. D/ / Jax Montiel MD / Jax Montiel MD Interpreting Provider: Jax Montiel MD Exam - Constitutional Vitals: Temp Pulse Resp BP Pulse Ox 98.3 F 81 17 109/73 92 10/05/17 07:47 10/05/17 07:47 10/05/17 07:47 10/05/17 07:47 10/05/17 07:47 General appearance: cooperative, morbidly obese, no acute distress - Head Head exam: Present: atraumatic, normal inspection, normocephalic - Eye Eye exam: Present: EOMI, normal appearance, PERRL Pupils: Present: normal accommodation - ENT ENT exam: Present: mucous membranes moist - Neck Neck exam: Present: normal inspection - Respiratory Respiratory exam: Present: CTAB. Absent: rales, respiratory distress, rhonchi, wheezes - Cardiovascular Cardiovascular exam: Present: RRR, +S1, +S2 - GI/Abdominal GI/Abdominal exam: Present: distended (obese), normal bowel sounds, soft. Absent: tenderness - Extremities Exam Extremities exam: Present: normal inspection, pedal edema (Trace BLE). Absent: joint swelling, tenderness - Back Exam Back exam: Present: CVA tenderness (L). Absent: paraspinal tenderness, vertebral tenderness Additional comments: Left flank KINGA drain with scant amount of serosanguinous drainage noted. Tenderness noted with palpation of the area around the drain site. Dressing remains C/D/I. No surrounding erythema noted. - Neurological Exam Neurological exam: Present: alert, oriented X3, no focal deficits - Psychiatric Psychiatric exam: Present: normal affect, normal mood - Skin Skin exam: Present: dry, intact, normal color, warm Consult Discharge Plan - Plan Referrals: Kaylee Pierre, SPRAY BLENDER [Primary Care Provider] - NONE,PCP [Family Provider] -
[2017-10-05] MEDS: Beclomethasone 80mcg MDI IH SCH ×2 (11:16→22:32)
[2017-10-05] MEDS: Levofloxacin 750 MG/150 ML 750 MG/150 ML BAG IVPB SCH (12:29)
[2017-10-05] MEDS ORDERED: Furosemide 20 MG TABLET PO ONE (18:00)
[2017-10-05] MEDS: Melatonin 3 MG TABLET PO PRN (22:24)
[2017-10-06 04:41] LABS: Basophils # 0.1 K/mcL (0.0-0.2); Basophils % 0.6 %; Eosinophils # 0.3 K/mcL (0.0-0.6); Eosinophils % 2.6 %; Hematocrit 33.7 % (35.3-44.9); Hemoglobin 11.1 g/dL (11.5-15.4); Immature Granulocytes % 5.2 % (0-4); Lymphocytes # 2.3 K/mcL (0.6-4.6); Lymphocytes % 19.5 %; Mean Corpuscular HGB Conc 32.9 g/dL (31.6-35.5); Mean Corpuscular Hemoglobin 30.2 pg (28.0-33.3); Mean Corpuscular Volume 91.8 fL (83.0-100.0); Mean Platelet Volume 9.4 fL (9.4-12.4); Monocytes # 0.9 K/mcL (0.0-1.3); Monocytes % 7.2 %; Neutrophils # 7.7 K/mcL (1.6-8.9); Nucleated Red Blood Cells 0.3 /100 WBC (0); Platelet Count 436 K/mcL (140-400); Red Blood Count 3.67 M/mcL (3.82-4.97); Red Cell Distribution Width 13.6 % (11.5-14.5); Segmented Neutrophils % 64.9 %
[2017-10-06 04:59] LABS: BUN/Creatinine Ratio 18 (6-26); Blood Urea Nitrogen 11 mg/dL (6-20); Calcium 8.8 mg/dL (8.6-10.3); Carbon Dioxide 28 mEq/L (23-29); Chloride 101 mEq/L (98-107); Glucose 102 mg/dL (70-105); Osmolality,Calculated 284 (280-300); Potassium 4.2 mEq/L (3.5-5.1); Sodium 137 mEq/L (136-145); eGFR For Non-African Americans > 60 (> 60)
[2017-10-06] MEDS: *HR* Heparin 5,000 UNIT/ML VIAL SQ SCH ×2 (05:35→16:52)
[2017-10-06 06:48] LABS: Platelet Estimate Normal (Normal)
[2017-10-06 06:49] LABS: Anisocytosis 1+ (Not Present); Polychromasia 1+ (Not Present)
[2017-10-06] MEDS: Beclomethasone 80mcg MDI IH SCH ×2 (07:39→20:28)
[2017-10-06] MEDS: metroNIDAZOLE 500 MG TABLET PO SCH ×3 (08:10→21:09)
[2017-10-06] MEDS: BuPROPion SR (12 HR) 150 MG TABLET PO SCH ×2 (08:10→21:09)
[2017-10-06] MEDS: Furosemide 20 MG TABLET PO SCH ×2 (08:11→16:52)
--- NOTE | 2017-10-06 09:58 | Internal Med Progress Note ---
Hospitalist Progress Note - Encounter Date of Encounter: 10/06/17 Time of Encounter: 09:56 - Subjective Interval History: Patient seen and examined at bedside. Patient no acute overnight events. Patient remains afebrile. Patient states that overall she feels relatively okay however still gets very short of breath with exertion. However has no shortness of breath at rest. Patient denies any chest pain, nausea, vomiting, diarrhea, abdominal pain. Patient requiring 4-1/2 L of oxygen to maintain adequate oxygen saturation currently. RN reports of the patient still drops down to the low to mid 80s on pulse oximetry with ambulation. Patient reports that she has been urinating very well since Lasix was started and her swelling is improved. - Exam Vitals: Temp Pulse Resp BP Pulse Ox 98.4 F 87 20 119/72 90 10/06/17 07:43 10/06/17 07:43 10/06/17 07:43 10/06/17 07:43 10/06/17 08:21 Exam: Constitutional: No acute distress, Alert, lying in bed Psych: AAO x 3 HEENT: NCAT, EOMI Neck: supple Cardio: regular rate and rhythm, +s1s2, no murmurs/rubs/gallops Resp: Significant only decreased breath sounds in bases, examination is limited by body habitus, patient does have expiratory wheezing Abd: soft, non tender/non distended, positive bowel sounds, no gaurding/reboud/ ridgitity, left-sided renal abscess drain with scant amount of serous fluid, no surrounding erythema or significant tenderness around the drain insertion site Extremities: 1+ pitting edema bilateral lower extremities Neuro: no focal deficits appreciated - Assessment and Plan (1) Severe sepsis Current Visit: Yes Status: Acute Assessment and Plan: Patient with severe sepsis secondary to pyelonephritis with renal abscess -Patient met sepsis criteria with respiratory end organ dysfunction most likely secondary to sepsis -Patient continues to be on IV antibiotics IV Rocephin was changed to IV Zosyn on 10/01 to broaden coverage -Patient has now been afebrile for 48 hours -Status post drainage of left renal abscess with only scant output of serosanguineous fluid -Abscess culture with ecoli resistant to ampicillin -Blood cultures remain negative -Continue to follow blood cultures and abscess culture -Continue levaquin and flagyl for total of 14 days through 10/14/2017 -sepsis is resolved (2) Acute respiratory failure with hypoxia Current Visit: Yes Status: Acute Assessment and Plan: The patient developed respiratory distress with hypoxemia and hypoxia -Is most likely secondary to severe sepsis however now with evidence of pulmonary edema on imaging -Strongly suspect some component of obesity hypoventilation syndrome contributing to her hypoxia; BiPAP ordered at nighttime however patient did not tolerate -Chest with patient and patient willing to try BiPAP again at lower pressures to see if she be able to tolerate -Maintain oxygen supplementation on nasal cannula and wean as tolerated to maintain the pain saturation above 93% -No respiratory distress -And 20 Lasix twice a day -Daily weights and intake and output -Patient down 3 kg since Lasix was started yesterday; however still up 7 kg from admission -We will obtain chest x-ray in the morning -We will start prednisone 10 mg daily secondary to wheezing (3) Renal abscess, left Current Visit: Yes Status: Acute Assessment and Plan: -Status post drainage on 10/01/2017 -Minimal output from draining; mostly serosanguineous -Culture growing ecoli -Continue flagyl and levaquin per ID for 14 days -Maintain drain until outpatient follow-up with urology next week to have drain removed (4) Pyelonephritis Current Visit: Yes Status: Acute Assessment and Plan: -Completed 4 days of Rocephin and 2 days of Zosyn; now abx de-esclated to levaquin/flagyl per ID -Cultures are negative to date; abcess cx showing ecoli -Drain to be removed and urology office next week as outpatient (5) Obesity Current Visit: Yes Status: Chronic Assessment and Plan: Lifestyle modification encouraged -Likely obesity hypoventilation syndrome contributing to her respiratory hypoxia (6) HTN (hypertension) Current Visit: Yes Status: Chronic Assessment and Plan: Patient with low normal blood pressures in setting of severe sepsis -Continue home meds, Lasix restarted (7) GERD (gastroesophageal reflux disease) Current Visit: Yes Status: Chronic Assessment and Plan: Continue home meds DVT Prophylaxis: Heparin SQ - Summary of Assessment and Plan Summary of Assessment and Plan: Patient sepsis is resolved however the patient will remain in the hospital secondary to significant hypoxia most likely from ALAINA and pulmonary edema from volume overload; continue diuresis and will obtain chest x-ray in morning. - Time Spent with Patient Total time spent is greater than 50% in coordination of care (as documented) at patient's floor/unit and/or counseling patient: 25 - 35 minutes Internal Medicine: Result - Labs CBC & Chem 7: 10/06/17 04:06 10/06/17 04:06 Labs: Short CBC 10/06/17 Range/Units 04:06 WBC 11.8 H (4.3-11.1) K/mcL Hgb 11.1 L (11.5-15.4) g/dL Hct 33.7 L (35.3-44.9) % Plt Count 436 H (140-400) K/mcL Neutrophils # 7.7 (1.6-8.9) K/mcL BMP 10/06/17 04:06 Sodium 137 Potassium 4.2 Chloride 101 Carbon Dioxide 28 BUN 11 Creatinine 0.60 Glucose 102 Calcium 8.8 - ABG Interpretation ABG results: ABG ABG pH 7.42 pH Units (7.32-7.45) 10/02/17 05:05 ABG pCO2 46 mmHg (35-45) H 10/02/17 05:05 ABG pO2 54 mmHg (85-104) L 10/02/17 05:05 ABG O2 Saturation 88 % (95-98) L 10/02/17 05:05 PT/INR, D-dimer PT 12.3 Seconds (9.4-12.1) H 10/01/17 09:34 Consult Discharge Plan - Plan Referrals: Kaylee Pierre, CHILDCARE AIDE [Primary Care Provider] - 10/12/17 11:00 am (Follow up as scheduled.) NONE,PCP [Family Provider] - (5) Obesity Qualifiers: Obesity type: due to excess calories Obesity classification: adult class 3 ( BMI >= 40) Serious obesity comorbidity presence: without serious comorbidity Body mass index: BMI 45.0-49.9 Qualified Code(s): E66.01 - Morbid (severe) obesity due to excess calories; Z68.42 - Body mass index (BMI) 45.0-49.9, adult (6) HTN (hypertension) Qualifiers: Hypertension type: essential hypertension Qualified Code(s): I10 - Essential (primary) hypertension (7) GERD (gastroesophageal reflux disease) Qualifiers: Esophagitis presence: esophagitis presence not specified Qualified Code(s): K21.9 - Gastro-esophageal reflux disease without esophagitis
[2017-10-06] MEDS: Levofloxacin 750 MG/150 ML 750 MG/150 ML BAG IVPB SCH (12:37)
[2017-10-06] MEDS: predniSONE 10 MG TABLET PO SCH (12:37)
[2017-10-06] MEDS: Melatonin 3 MG TABLET PO PRN (23:48)
[2017-10-07 05:26] LABS: Basophils # 0.1 K/mcL (0.0-0.2); Basophils % 0.5 %; Eosinophils # 0.3 K/mcL (0.0-0.6); Eosinophils % 1.6 %; Hematocrit 33.5 % (35.3-44.9); Hemoglobin 11.1 g/dL (11.5-15.4); Lymphocytes % 18.3 %; Mean Corpuscular HGB Conc 33.1 g/dL (31.6-35.5); Mean Corpuscular Hemoglobin 29.9 pg (28.0-33.3); Mean Corpuscular Volume 90.3 fL (83.0-100.0); Mean Platelet Volume 9.3 fL (9.4-12.4); Monocytes # 1.2 K/mcL (0.0-1.3); Monocytes % 7.1 %; Platelet Count 427 K/mcL (140-400); Red Blood Count 3.71 M/mcL (3.82-4.97); Red Cell Distribution Width 13.6 % (11.5-14.5); Segmented Neutrophils % 68.5 %
[2017-10-07] MEDS: *HR* Heparin 5,000 UNIT/ML VIAL SQ SCH ×2 (05:38→16:28)
[2017-10-07 05:44] LABS: BUN/Creatinine Ratio 20 (6-26); Blood Urea Nitrogen 12 mg/dL (6-20); Calcium 8.6 mg/dL (8.6-10.3); Carbon Dioxide 27 mEq/L (23-29); Chloride 101 mEq/L (98-107); Glucose 106 mg/dL (70-105); Osmolality,Calculated 286 (280-300); Sodium 138 mEq/L (136-145); eGFR For Non-African Americans > 60 (> 60)
--- NOTE | 2017-10-07 07:46 | Internal Med Progress Note ---
Hospitalist Progress Note - Encounter Date of Encounter: 10/07/17 Time of Encounter: 07:37 - Subjective Interval History: Patient seen and examined at bedside. Patient no acute overnight events. Patient remains afebrile. Patient's oxygen requirement has improved from 5 L/m to now intermittently being on room air however the patient did require BiPAP briefly overnight to maintain a saturation of 90%. Patient continues to say that she diureses well with Lasix. Chest x-ray this morning pending. She denies any chest pain, states that her shortness of breath is better at rest but still short of breath with exertion. Patient denies any abdominal pain, nausea, vomiting. - Exam Vitals: Temp Pulse Resp BP Pulse Ox 99.2 F 86 20 114/72 90 10/07/17 06:53 10/07/17 06:53 10/07/17 06:53 10/07/17 06:53 10/07/17 06:53 Exam: Constitutional: No acute distress, Alert, lying in bed, appears slightly more comfortable than yesterday Psych: AAO x 3 HEENT: NCAT, EOMI Neck: supple Cardio: regular rate and rhythm, +s1s2, no murmurs/rubs/gallops Resp: Continues to have decreased breath sounds in bases; wheezing is improved but continues to have expiratory wheezing Abd: soft, non tender/non distended, positive bowel sounds, no gaurding/reboud/ ridgitity, left-sided renal abscess drain with scant amount of serous fluid, no surrounding erythema or significant tenderness around the drain insertion site; no change from prior Extremities: 1+ pitting edema bilateral lower extremities - Assessment and Plan (1) Severe sepsis Current Visit: Yes Status: Acute Assessment and Plan: Patient with severe sepsis secondary to pyelonephritis with renal abscess -Patient met sepsis criteria with respiratory end organ dysfunction most likely secondary to sepsis -Patient continues to be on IV antibiotics IV Rocephin was changed to IV Zosyn on 10/01 to broaden coverage -Patient has now been afebrile for 48 hours -Status post drainage of left renal abscess with only scant output of serosanguineous fluid -Abscess culture with ecoli resistant to ampicillin -Blood cultures were negative -Continue to follow blood cultures and abscess culture -Continue levaquin for total of 14 days through 10/14/2017 -Discontinue Flagyl as anaerobic culture is negative -sepsis is resolved -Leukocytosis increased today likely secondary to steroids that were started yesterday (2) Acute respiratory failure with hypoxia Current Visit: Yes Status: Acute Assessment and Plan: The patient developed respiratory distress with hypoxemia and hypoxia -Respiratory failure was most likely secondary to severe sepsis initially however now is more related to pulmonary edema -Strongly suspect some component of obesity hypoventilation syndrome contributing to her hypoxia; BiPAP ordered at nighttime however patient has not tolerated; but she was able to use briefly last night -Continue to attempt to use BiPAP at lower pressures are better toleration -Maintain oxygen supplementation on nasal cannula and wean as tolerated to maintain the pain saturation above 93% -No respiratory distress -Continue 20 Lasix twice a day -Daily weights and intake and output -Diuresing well however still up 7 kg on admission -Chest x-ray this morning ordered -Continue prednisone 10 mg daily secondary to wheezing (3) Renal abscess, left Current Visit: Yes Status: Acute Assessment and Plan: -Status post drainage on 10/01/2017 -Minimal output from draining; mostly serosanguineous -Culture growing ecoli -Continue levaquin per ID for 14 days -Discontinue flagyl -Maintain drain until outpatient follow-up with urology this week to have drain removed (4) Pyelonephritis Current Visit: Yes Status: Acute Assessment and Plan: -Completed 4 days of Rocephin and 2 days of Zosyn; now abx de-esclated to levaquin/flagyl per ID -Discontinue Flagyl -Cultures are negative to date; abcess cx showing ecoli -Drain to be removed and urology office next week as outpatient (5) Obesity Current Visit: Yes Status: Chronic Assessment and Plan: Lifestyle modification encouraged -Likely obesity hypoventilation syndrome contributing to her respiratory hypoxia (6) HTN (hypertension) Current Visit: Yes Status: Chronic Assessment and Plan: Patient with low normal blood pressures in setting of severe sepsis -Continue home meds, Lasix restarted (7) GERD (gastroesophageal reflux disease) Current Visit: Yes Status: Chronic Assessment and Plan: Continue home meds - Summary of Assessment and Plan Summary of Assessment and Plan: Patient sepsis is resolved however the patient will remain in the hospital secondary to significant hypoxia; continues to improve however required BiPAP to maintain oxygen saturation of 90% overnight per vitals. Chest x-ray will be obtained this morning to evaluate pulmonary edema. Anticipate discharge soon - Time Spent with Patient Total time spent is greater than 50% in coordination of care (as documented) at patient's floor/unit and/or counseling patient: less than 15 minutes Plan of Care Discussed with: patient Internal Medicine: Result - Labs CBC & Chem 7: 10/07/17 05:01 10/07/17 05:01 Labs: Short CBC 10/07/17 Range/Units 05:01 WBC 16.1 H (4.3-11.1) K/mcL Hgb 11.1 L (11.5-15.4) g/dL Hct 33.5 L (35.3-44.9) % Plt Count 427 H (140-400) K/mcL Neutrophils # 11.0 H (1.6-8.9) K/mcL BMP 10/07/17 05:01 Sodium 138 Potassium 4.0 Chloride 101 Carbon Dioxide 27 BUN 12 Creatinine 0.59 L Glucose 106 H Calcium 8.6 - ABG Interpretation ABG results: ABG ABG pH 7.42 pH Units (7.32-7.45) 10/02/17 05:05 ABG pCO2 46 mmHg (35-45) H 10/02/17 05:05 ABG pO2 54 mmHg (85-104) L 10/02/17 05:05 ABG O2 Saturation 88 % (95-98) L 10/02/17 05:05 PT/INR, D-dimer PT 12.3 Seconds (9.4-12.1) H 10/01/17 09:34 Consult Discharge Plan - Plan Referrals: Kaylee Pierre, GARMENT FORM ASSEMBLER [Primary Care Provider] - 10/12/17 11:00 am (Follow up as scheduled.) NONE,PCP [Family Provider] - (5) Obesity Qualifiers: Obesity type: due to excess calories Obesity classification: adult class 3 ( BMI >= 40) Serious obesity comorbidity presence: without serious comorbidity Body mass index: BMI 45.0-49.9 Qualified Code(s): E66.01 - Morbid (severe) obesity due to excess calories; Z68.42 - Body mass index (BMI) 45.0-49.9, adult (6) HTN (hypertension) Qualifiers: Hypertension type: essential hypertension Qualified Code(s): I10 - Essential (primary) hypertension (7) GERD (gastroesophageal reflux disease) Qualifiers: Esophagitis presence: esophagitis presence not specified Qualified Code(s): K21.9 - Gastro-esophageal reflux disease without esophagitis
[2017-10-07] MEDS: predniSONE 10 MG TABLET PO SCH (09:54)
[2017-10-07] MEDS: BuPROPion SR (12 HR) 150 MG TABLET PO SCH ×2 (09:54→20:50)
[2017-10-07] MEDS: Furosemide 20 MG TABLET PO SCH ×2 (09:54→16:28)
[2017-10-07] MEDS: Beclomethasone 80mcg MDI IH SCH ×2 (11:01→22:47)
[2017-10-07] MEDS: Levofloxacin 750 MG/150 ML 750 MG/150 ML BAG IVPB SCH (12:16)
[2017-10-07] MEDS: Melatonin 3 MG TABLET PO PRN (22:36)
[2017-10-08 04:28] LABS: Basophils # 0.1 K/mcL (0.0-0.2); Basophils % 0.7 %; Eosinophils # 0.2 K/mcL (0.0-0.6); Eosinophils % 1.2 %; Hematocrit 36.2 % (35.3-44.9); Immature Granulocytes % 4.6 % (0-4); Lymphocytes # 3.8 K/mcL (0.6-4.6); Lymphocytes % 18.1 %; Mean Corpuscular HGB Conc 33.1 g/dL (31.6-35.5); Mean Corpuscular Hemoglobin 30.6 pg (28.0-33.3); Mean Corpuscular Volume 92.3 fL (83.0-100.0); Mean Platelet Volume 9.3 fL (9.4-12.4); Monocytes # 1.5 K/mcL (0.0-1.3); Monocytes % 7.2 %; Neutrophils # 14.2 K/mcL (1.6-8.9); Platelet Count 448 K/mcL (140-400); Red Blood Count 3.92 M/mcL (3.82-4.97); Red Cell Distribution Width 13.8 % (11.5-14.5); Segmented Neutrophils % 68.2 %
[2017-10-08 04:49] LABS: BUN/Creatinine Ratio 25 (6-26); Blood Urea Nitrogen 16 mg/dL (6-20); Calcium 8.9 mg/dL (8.6-10.3); Carbon Dioxide 28 mEq/L (23-29); Chloride 101 mEq/L (98-107); Glucose 123 mg/dL (70-105); Osmolality,Calculated 281 (280-300); Potassium 4.3 mEq/L (3.5-5.1); Sodium 134 mEq/L (136-145); eGFR For Non-African Americans > 60 (> 60)
[2017-10-08] MEDS: *HR* Heparin 5,000 UNIT/ML VIAL SQ SCH ×2 (06:11→17:15)
[2017-10-08] MEDS: Furosemide 20 MG TABLET PO SCH ×2 (07:42→17:15)
[2017-10-08] MEDS: BuPROPion SR (12 HR) 150 MG TABLET PO SCH ×2 (07:42→20:48)
[2017-10-08] MEDS: predniSONE 10 MG TABLET PO SCH (07:42)
[2017-10-08] MEDS: Beclomethasone 80mcg MDI IH SCH ×2 (07:47→21:21)
--- NOTE | 2017-10-08 10:39 | IR Progress Note ---
Patient reports: no new complaints Vital Signs: Vital Signs/O2 Sat, Most Current Temp Pulse Resp BP Pulse Ox 97.4 F L 77 16 133/80 95 10/08/17 07:31 10/08/17 07:31 10/08/17 07:47 10/08/17 07:31 10/08/17 07:47 Recent Labs: Lab Results 10/08/17 10/08/17 10/07/17 04:14 04:14 05:01 WBC 20.8 H RBC 3.92 Hgb 12.0 Hct 36.2 MCV 92.3 MCH 30.6 MCHC 33.1 RDW 13.8 Plt Count 448 H MPV 9.3 L Neutrophils # 14.2 H Lymphocytes # 3.8 Monocytes # 1.5 H Eosinophils # 0.2 Basophils # 0.1 Sodium 134 L 138 Potassium 4.3 4.0 Chloride 101 101 Carbon Dioxide 28 27 BUN 16 12 Creatinine 0.65 0.59 L Est GFR ( Amer) > 60 > 60 Est GFR (Non-Af Amer) > 60 > 60 BUN/Creatinine Ratio 25 20 Glucose 123 H 106 H Calcium 8.9 8.6 10/07/17 10/06/17 10/06/17 05:01 04:06 04:06 WBC 16.1 H 11.8 H RBC 3.71 L 3.67 L Hgb 11.1 L 11.1 L Hct 33.5 L 33.7 L MCV 90.3 91.8 MCH 29.9 30.2 MCHC 33.1 32.9 RDW 13.6 13.6 Plt Count 427 H 436 H MPV 9.3 L 9.4 Neutrophils # 11.0 H 7.7 Lymphocytes # 3.0 2.3 Monocytes # 1.2 0.9 Eosinophils # 0.3 0.3 Basophils # 0.1 0.1 Sodium 137 Potassium 4.2 Chloride 101 Carbon Dioxide 28 BUN 11 Creatinine 0.60 Est GFR ( Amer) > 60 Est GFR (Non-Af Amer) > 60 BUN/Creatinine Ratio 18 Glucose 102 Calcium 8.8 Assessment and Plan 37 y/o female s/p kidney drain placement due to a renal abscess. Outputs of the drain have been minimal. Therefore, the drain was removed. Patient was appreciative. No immediate complications. Jax Montiel MD
--- NOTE | 2017-10-08 10:43 | Internal Med Progress Note ---
<Josh Zamarripa - Last Filed: 10/08/17 13:31> Hospitalist Progress Note - Encounter Date of Encounter: 10/08/17 Time of Encounter: 09:45 - Subjective Interval History: 37-year-old female admitted with sepsis secondary to pyelonephritis. Pt seen and examined. No overnight events. Temp did increase mildly to 99.8 early this morning. Reports her breathing is improved. She did not need BiPAP overnight and took her supplemental O2 off. O2 sat has been >90%. She does report some loose stools, but the nurse did not get that in report and there are no documented BM's for a couple of days. She denies other complaints, denies chest pain, cough, abdominal pain, or dysuria. - Exam Vitals: Temp Pulse Resp BP Pulse Ox 97.4 F L 77 16 133/80 95 10/08/17 07:31 10/08/17 07:31 10/08/17 07:47 10/08/17 07:31 10/08/17 07:47 Exam: GEN: No acute distress, A&O3 HEAD: Atraumatic, normocephalic EYES: Pupils symmetric, sclera white, conjunctiva pink HEART: RRR, normal S1 and S2, no murmurs LUNGS: Clear to auscultation bilaterally, mild expiratory wheeze ABD: Soft, nontender, nondistended, bowel sounds present, left renal abscess drainage site c/d/i EXT: Mild LE edema noted, pulses 2/4 NEURO: No focal deficits, cooperative with exam - Assessment and Plan (1) Severe sepsis Current Visit: Yes Status: Acute Assessment and Plan: Severe sepsis secondary to pyelonephritis and renal abscess Patient with severe sepsis secondary to pyelonephritis with renal abscess BCx negative, abscess fluid growing E coli Was on Zosyn, now deescalated to Levaquin Sepsis resolved, currently afebrile. Leukocytosis likely due to steroid use. - will stop steroid today and monitor for improvement in leukocytosis - if improving may be able to discharge tomorrow - follow BC and abscess fluid culture - ID following - appreciate recommendations - continue Levaquin (day 5) through 10/14/2017 for total of 14 days - pt reporting loose stools, inconsistent with nurse report - will check C. diff and start on probiotics (2) Pyelonephritis Current Visit: Yes Status: Acute Assessment and Plan: Completed 4 days of Rocephin and 2 days of Zosyn - now abx de-escalated to Levaquin -Continue Levaquin (3) Renal abscess, left Current Visit: Yes Status: Acute Assessment and Plan: Left renal abscess s/p drainage 10/01 Serosanguineous fluid growing E coli Drain removed 10/08/2017 - Continue levaquin per ID for 14 days - Urology following (4) Acute respiratory failure with hypoxia Current Visit: Yes Status: Acute Assessment and Plan: Hypoxic respiratory failure likely due to severe sepsis initially and then related to pulmonary edema Suspect obesity hypoventilation syndrome is contributing to hypoxia CXR showed mild improvement of airspace opacities. Currently diuresing with Lasix Breathing is much improved today - O2 sat >90% on room air - Continue to attempt to use BiPAP if needed at lower pressures for better toleration - Continue 20 Lasix twice a day - Daily weights and intake and output - Discontinue prednisone due to leukocytosis (5) Obesity Current Visit: Yes Status: Chronic Assessment and Plan: Suspect obesity hypoventilation syndrome is contributing to her respiratory hypoxia - Lifestyle modification encouraged (6) HTN (hypertension) Current Visit: Yes Status: Chronic Assessment and Plan: BP 133/80 this morning. Currently on home meds, diuresing with Lasix. - Continue home meds - continue Lasix (7) GERD (gastroesophageal reflux disease) Current Visit: Yes Status: Chronic Assessment and Plan: Continue home meds DVT Prophylaxis: Subq heparin - Time Spent with Patient Total time spent is greater than 50% in coordination of care (as documented) at patient's floor/unit and/or counseling patient: Internal Medicine: Result - Labs CBC & Chem 7: 10/08/17 04:14 10/08/17 04:14 Labs: Short CBC 10/08/17 Range/Units 04:14 WBC 20.8 H (4.3-11.1) K/mcL Hgb 12.0 (11.5-15.4) g/dL Hct 36.2 (35.3-44.9) % Plt Count 448 H (140-400) K/mcL Neutrophils # 14.2 H (1.6-8.9) K/mcL BMP 10/08/17 04:14 Sodium 134 L Potassium 4.3 Chloride 101 Carbon Dioxide 28 BUN 16 Creatinine 0.65 Glucose 123 H Calcium 8.9 - ABG Interpretation ABG results: ABG ABG pH 7.42 pH Units (7.32-7.45) 10/02/17 05:05 ABG pCO2 46 mmHg (35-45) H 10/02/17 05:05 ABG pO2 54 mmHg (85-104) L 10/02/17 05:05 ABG O2 Saturation 88 % (95-98) L 10/02/17 05:05 PT/INR, D-dimer PT 12.3 Seconds (9.4-12.1) H 10/01/17 09:34 Consult Discharge Plan - Plan Referrals: Kaylee Pierre, LIBRARY SPECIALIST [Primary Care Provider] - 10/12/17 11:00 am (Follow up as scheduled.) NONE,PCP [Family Provider] - <Ga Claudio - Last Filed: 10/08/17 15:20> Hospitalist Progress Note - Encounter Date of Encounter: 10/08/17 - Exam Vitals: Temp Pulse Resp BP Pulse Ox 97.4 F L 77 16 133/80 95 10/08/17 07:31 10/08/17 07:31 10/08/17 07:47 10/08/17 07:31 10/08/17 07:47 - Assessment and Plan (1) Pyelonephritis Current Visit: Yes Status: Acute (2) Obesity Current Visit: Yes Status: Chronic (3) HTN (hypertension) Current Visit: Yes Status: Chronic (4) GERD (gastroesophageal reflux disease) Current Visit: Yes Status: Chronic (5) Acute respiratory failure with hypoxia Current Visit: Yes Status: Acute (6) Renal abscess, left Current Visit: Yes Status: Acute (7) Severe sepsis Current Visit: Yes Status: Acute - Time Spent with Patient Total time spent is greater than 50% in coordination of care (as documented) at patient's floor/unit and/or counseling patient: Internal Medicine: Result - Labs CBC & Chem 7: 10/08/17 04:14 10/08/17 04:14 Labs: Short CBC 10/08/17 Range/Units 04:14 WBC 20.8 H (4.3-11.1) K/mcL Hgb 12.0 (11.5-15.4) g/dL Hct 36.2 (35.3-44.9) % Plt Count 448 H (140-400) K/mcL Neutrophils # 14.2 H (1.6-8.9) K/mcL BMP 10/08/17 04:14 Sodium 134 L Potassium 4.3 Chloride 101 Carbon Dioxide 28 BUN 16 Creatinine 0.65 Glucose 123 H Calcium 8.9 - ABG Interpretation ABG results: ABG ABG pH 7.42 pH Units (7.32-7.45) 10/02/17 05:05 ABG pCO2 46 mmHg (35-45) H 10/02/17 05:05 ABG pO2 54 mmHg (85-104) L 10/02/17 05:05 ABG O2 Saturation 88 % (95-98) L 10/02/17 05:05 PT/INR, D-dimer PT 12.3 Seconds (9.4-12.1) H 10/01/17 09:34 - Attending Attestation I examined this patient and my medical decision-making was reviewed with the Resident Physician Dr. Zamarripa. I agree with the documented findings, disposition and treatment plan as described except to the extent set forth below. Ms. Pearson is a 37-year-old female with known asthma GERD, HTN presented to ER with Left flank pain, She was admitted here with sepsis, UTI and Pyelonephritis. She happened to have Left renal abscess for which she had drainage cath placed in. Her fluid cx grown E. Coli. Pt was placed on broad spec abx initially, now she is on Levaquin IV abx. Gen: A, A, O x 3 Chest: Diminished BS b/l Heart: S1S2+ RRR No murmurs Abd: Soft, NT, BS a/p 1. Sepsis with UTI, Pyelonephritis 2. Left renal abscess on Levaquin abx total 14 days course WBC started trending up if still keep trending high, will consider repeat CT of Abd/ Pel in AM <Josh Zamarripa Guillermo - Last Filed: 10/08/17 13:31> (5) Obesity Qualifiers: Obesity type: due to excess calories Obesity classification: adult class 3 ( BMI >= 40) Serious obesity comorbidity presence: without serious comorbidity Body mass index: BMI 45.0-49.9 Qualified Code(s): E66.01 - Morbid (severe) obesity due to excess calories; Z68.42 - Body mass index (BMI) 45.0-49.9, adult (6) HTN (hypertension) Qualifiers: Hypertension type: essential hypertension Qualified Code(s): I10 - Essential (primary) hypertension (7) GERD (gastroesophageal reflux disease) Qualifiers: Esophagitis presence: esophagitis presence not specified Qualified Code(s): K21.9 - Gastro-esophageal reflux disease without esophagitis <Ga Claudio - Last Filed: 10/08/17 15:20> (2) Obesity Qualifiers: Obesity type: due to excess calories Obesity classification: adult class 3 ( BMI >= 40) Serious obesity comorbidity presence: without serious comorbidity Body mass index: BMI 45.0-49.9 Qualified Code(s): E66.01 - Morbid (severe) obesity due to excess calories; Z68.42 - Body mass index (BMI) 45.0-49.9, adult (3) HTN (hypertension) Qualifiers: Hypertension type: essential hypertension Qualified Code(s): I10 - Essential (primary) hypertension (4) GERD (gastroesophageal reflux disease) Qualifiers: Esophagitis presence: esophagitis presence not specified Qualified Code(s): K21.9 - Gastro-esophageal reflux disease without esophagitis
--- NOTE | 2017-10-08 11:17 | Infectious Disease Progress No ---
Date of Encounter: 10/08/17 Time of Encounter: 11:15 - Assessment and Plan (1) Sepsis Current Visit: Yes Status: Acute The patient had two SIRS criteria on admission. Likely secondary to left renal abscess. WBC up over the weekend, but likely secondary to steroids. Afebrile. Tachycardia resolved. Blood cultures drawn 10/01/17 x 4 sets are negative. Qualifiers: Sepsis type: sepsis due to unspecified organism Qualified Code(s): A41.9 - Sepsis, unspecified organism (2) Renal abscess, left Current Visit: Yes Status: Acute Location: Left kidney lower pole. Etiology unclear. Patient denies history of UTI or urinary symptoms. CT of the abdomen and pelvis 09/28/17 showed a cystic lesion within the lower pole of the left kidney consistent with simple cyst vs. abscess. Repeat CT of the abdomen and pelvis 10/01/17 showed slight improvement in the cyst , but the index of suspicion for abscess increased with the use of IV contrast. Urology consulted. Recommendations noted. IR consulted. Status post CT-guided drain placement 10/01/17 with 5ml of pus drained. Culture positive for Escherichia coli, resistant to ampicillin. Minimal output from drain over the past few days. Drain removed this morning. Check HIV status.--> nonreactive. Continue Levaquin 750 mg IV daily. Duration of treatment depends on the clinical picture, but likely a total of 14 days from the insertion of the drain tube. Can transition to PO Levaquin when ready for discharge to complete course of antibiotics. Treat through 10/14/17. Monitor renal function and dose-adjust antibiotics. (3) Pyelonephritis Current Visit: Yes Status: Acute Location: Left kidney. Causative Escherichia coli. Antibiotics as above. (4) Acute respiratory failure with hypoxia Current Visit: Yes Status: Acute Etiology unclear. High index of suspicion for ALAINA. CXR showed pulmonary edema vs. PNA. Likely pulmonary edema based on clinical picture, but Levaquin will cover the patient for CAP. Repeat CXR shows improvement. Management per the primary team. (5) Obesity Current Visit: Yes Status: Chronic Qualifiers: Obesity type: due to excess calories Obesity classification: adult class 3 (BMI >= 40) Serious obesity comorbidity presence: without serious comorbidity Body mass index: BMI 45.0-49.9 Qualified Code(s): E66.01 - Morbid (severe) obesity due to excess calories; Z68.42 - Body mass index (BMI) 45.0-49.9, adult (6) GERD (gastroesophageal reflux disease) Current Visit: Yes Status: Chronic Qualifiers: Esophagitis presence: esophagitis presence not specified Qualified Code(s) : K21.9 - Gastro-esophageal reflux disease without esophagitis (7) HTN (hypertension) Current Visit: Yes Status: Chronic Qualifiers: Hypertension type: essential hypertension Qualified Code(s): I10 - Essential (primary) hypertension - Subjective Interval history: Patient seen and examined. No acute events noted overnight. Patient states she feels better today. Denies any fevers or chills or rigors overnight. Reports some shortness of breath on exertion, but denies cough or chest pain. Denies abdominal pain, urinary complaints, or appetite changes. Denies nausea or vomiting or diarrhea. Denies flank pain. Denies oral thrush or skin lesions. Infect Dis PN-Objective Data - Labs CBC & Chem 7: 10/08/17 04:14 10/08/17 04:14 Labs: Laboratory Results - last 24 hr 10/08/17 10/08/17 04:14 04:14 WBC 20.8 H RBC 3.92 Hgb 12.0 Hct 36.2 MCV 92.3 MCH 30.6 MCHC 33.1 RDW 13.8 Plt Count 448 H MPV 9.3 L Immature Gran % 4.6 H Seg Neutrophils % 68.2 Lymphocytes % 18.1 Monocytes % 7.2 Eosinophils % 1.2 Basophils % 0.7 Neutrophils # 14.2 H Lymphocytes # 3.8 Monocytes # 1.5 H Eosinophils # 0.2 Basophils # 0.1 Sodium 134 L Potassium 4.3 Chloride 101 Carbon Dioxide 28 BUN 16 Creatinine 0.65 Est GFR ( Amer) > 60 Est GFR (Non-Af Amer) > 60 BUN/Creatinine Ratio 25 Glucose 123 H Calculated Osmolality 281 Calcium 8.9 Cultures: Cultures 10/01/17 16:15 Blood Culture - Final Peripheral Venipuncture No growth. Final report. 10/01/17 16:12 Blood Culture - Final Peripheral Venipuncture No growth. Final report. 10/01/17 11:40 Anaerobic Culture - Final Left Kidney No anaerobes were recovered. 10/01/17 04:10 Blood Culture - Final Peripheral Venipuncture No growth. Final report. 10/01/17 04:20 Blood Culture - Final Peripheral Venipuncture No growth. Final report. 10/01/17 11:40 Body Fluid Culture - Final Other-Specify in Comments Escherichia coli Serology 10/03/17 Range/Units 04:39 HIV Ag/Ab Combo Qual Nonreactive (Nonreactive) Exam - Constitutional Vitals: Temp Pulse Resp BP Pulse Ox 97.4 F L 77 16 133/80 95 10/08/17 07:31 10/08/17 07:31 10/08/17 07:47 10/08/17 07:31 10/08/17 07:47 General appearance: cooperative, morbidly obese, no acute distress - Head Head exam: Present: atraumatic, normal inspection, normocephalic - Eye Eye exam: Present: EOMI, normal appearance, PERRL Pupils: Present: normal accommodation - ENT ENT exam: Present: mucous membranes moist - Neck Neck exam: Present: normal inspection - Respiratory Respiratory exam: Present: CTAB. Absent: rales, respiratory distress, rhonchi, wheezes - Cardiovascular Cardiovascular exam: Present: RRR, +S1, +S2 - GI/Abdominal GI/Abdominal exam: Present: distended (obese), normal bowel sounds, soft. Absent: tenderness - Extremities Exam Extremities exam: Present: normal inspection. Absent: joint swelling, pedal edema, tenderness - Back Exam Back exam: Absent: CVA tenderness (L) Additional comments: LEft flank drain site with dressing C/D/I. - Neurological Exam Neurological exam: Present: alert, oriented X3, no focal deficits - Psychiatric Psychiatric exam: Present: normal affect, normal mood - Skin Skin exam: Present: dry, intact, normal color, warm Consult Discharge Plan - Plan Referrals: Kaylee Pierre, COMMODITY INDUSTRY ANALYST [Primary Care Provider] - 10/12/17 11:00 am (Follow up as scheduled.) NONE,PCP [Family Provider] - - Attending Attestation I examined this patient and my medical decision-making was reviewed with the COMMODITY INDUSTRY ANALYST. I agree with the documented findings, disposition and treatment plan as described except to the extent set forth below.
[2017-10-08] MEDS: Levofloxacin 750 MG/150 ML 750 MG/150 ML BAG IVPB SCH (12:55)
[2017-10-08] MEDS: Lactobacillus 1 EACH CAP.SPRINK PO SCH (12:56)
[2017-10-08] MEDS: Melatonin 3 MG TABLET PO PRN (22:42)
[2017-10-09 04:55] LABS: Hematocrit 36.4 % (35.3-44.9); Mean Corpuscular Hemoglobin 29.4 pg (28.0-33.3); Mean Corpuscular Volume 89.2 fL (83.0-100.0); Mean Platelet Volume 9.2 fL (9.4-12.4); Platelet Count 436 K/mcL (140-400); Red Blood Count 4.08 M/mcL (3.82-4.97); Red Cell Distribution Width 14.1 % (11.5-14.5)
[2017-10-09 05:16] LABS: BUN/Creatinine Ratio 25 (6-26); Blood Urea Nitrogen 16 mg/dL (6-20); Calcium 9.1 mg/dL (8.6-10.3); Carbon Dioxide 26 mEq/L (23-29); Chloride 99 mEq/L (98-107); Glucose 111 mg/dL (70-105); Osmolality,Calculated 280 (280-300); Potassium 4.4 mEq/L (3.5-5.1); Sodium 134 mEq/L (136-145); eGFR For Non-African Americans > 60 (> 60)
[2017-10-09] MEDS: *HR* Heparin 5,000 UNIT/ML VIAL SQ SCH (05:27)
[2017-10-09 05:28] LABS: Basophils # 0.4 K/mcL (0.0-0.2); Eosinophils # 0.4 K/mcL (0.0-0.6); Lymphocytes # 3.8 K/mcL (0.6-4.6); Monocytes # 2.1 K/mcL (0.0-1.3); Neutrophils # 13.8 K/mcL (1.6-8.9)
[2017-10-09 05:29] LABS: Platelet Estimate Normal (Normal); Reactive Lymphocytes Present (Not Present); Toxic Granulation Present (Not Present)
[2017-10-09 05:30] LABS: Macrocytosis Present (Not Present); Polychromasia 1+ (Not Present)
[2017-10-09] MEDS: Beclomethasone 80mcg MDI IH SCH (07:52)
[2017-10-09] MEDS: Lactobacillus 1 EACH CAP.SPRINK PO SCH (09:06)
[2017-10-09] MEDS: Furosemide 20 MG TABLET PO SCH (09:06)
[2017-10-09] MEDS: BuPROPion SR (12 HR) 150 MG TABLET PO SCH (09:06)
--- NOTE | 2017-10-09 11:03 | Infectious Disease Progress No ---
Date of Encounter: 10/09/17 Time of Encounter: 11:00 - Assessment and Plan (1) Sepsis Status: Resolved The patient had two SIRS criteria on admission. Likely secondary to left renal abscess. WBC remains elevated, but likely secondary to steroids. Afebrile. Tachycardia resolved. Blood cultures drawn 10/01/17 x 4 sets are negative. Qualifiers: Sepsis type: sepsis due to unspecified organism Qualified Code(s): A41.9 - Sepsis, unspecified organism (2) Renal abscess, left Status: Acute Location: Left kidney lower pole. Etiology unclear. Patient denies history of UTI or urinary symptoms. CT of the abdomen and pelvis 09/28/17 showed a cystic lesion within the lower pole of the left kidney consistent with simple cyst vs. abscess. Repeat CT of the abdomen and pelvis 10/01/17 showed slight improvement in the cyst , but the index of suspicion for abscess increased with the use of IV contrast. Urology consulted. Recommendations noted. IR consulted. Status post CT-guided drain placement 10/01/17 with 5ml of pus drained. Culture positive for Escherichia coli, resistant to ampicillin. Minimal output from drain over the past few days. Drain removed 10/08/17. Check HIV status.--> nonreactive. Continue Levaquin 750 mg IV daily. Duration of treatment depends on the clinical picture, but likely a total of 14 days from the insertion of the drain tube. Can transition to PO Levaquin when ready for discharge to complete course of antibiotics. Treat through 10/14/17. Monitor renal function and dose-adjust antibiotics. (3) Pyelonephritis Status: Acute Location: Left kidney. Causative Escherichia coli. Antibiotics as above. (4) Acute respiratory failure with hypoxia Status: Acute Etiology unclear. High index of suspicion for ALAINA. CXR showed pulmonary edema vs. PNA. Likely pulmonary edema based on clinical picture, but Levaquin will cover the patient for CAP. Repeat CXR shows improvement. Management per the primary team. (5) Obesity Status: Chronic Qualifiers: Obesity type: due to excess calories Obesity classification: adult class 3 (BMI >= 40) Serious obesity comorbidity presence: without serious comorbidity Body mass index: BMI 45.0-49.9 Qualified Code(s): E66.01 - Morbid (severe) obesity due to excess calories; Z68.42 - Body mass index (BMI) 45.0-49.9, adult (6) GERD (gastroesophageal reflux disease) Status: Chronic Qualifiers: Esophagitis presence: esophagitis presence not specified Qualified Code(s) : K21.9 - Gastro-esophageal reflux disease without esophagitis (7) HTN (hypertension) Status: Chronic Qualifiers: Hypertension type: essential hypertension Qualified Code(s): I10 - Essential (primary) hypertension - Subjective Interval history: Patient seen and examined. No acute events noted overnight. Patient states she feels better today and wants to go home. Denies any fevers or chills or rigors overnight. Denies cough, shortness of breath, or chest pain. Denies abdominal pain, urinary complaints, or appetite changes. Denies nausea or vomiting or diarrhea. Denies flank pain. Denies oral thrush or skin lesions. Infect Dis PN-Objective Data - Labs CBC & Chem 7: 10/09/17 04:16 10/09/17 04:16 Labs: Laboratory Results - last 24 hr 10/09/17 10/09/17 04:16 04:16 WBC 20.9 H RBC 4.08 Hgb 12.0 Hct 36.4 MCV 89.2 MCH 29.4 MCHC 33.0 RDW 14.1 Plt Count 436 H MPV 9.2 L Seg Neutrophils % 58.0 Band Neutrophils % 8.0 H Lymphocytes % 18.0 Monocytes % 10.0 Eosinophils % 2.0 Basophils % 2.0 Myelocytes % 2.0 H Neutrophils # 13.8 H Lymphocytes # 3.8 Monocytes # 2.1 H Eosinophils # 0.4 Basophils # 0.4 H Reactive Lymphocytes Present A Toxic Granulation Present A Platelet Estimate Normal Polychromasia 1+ A Macrocytosis Present A Sodium 134 L Potassium 4.4 Chloride 99 Carbon Dioxide 26 BUN 16 Creatinine 0.63 Est GFR ( Amer) > 60 Est GFR (Non-Af Amer) > 60 BUN/Creatinine Ratio 25 Glucose 111 H Calculated Osmolality 280 Calcium 9.1 Cultures: Cultures 10/01/17 16:15 Blood Culture - Final Peripheral Venipuncture No growth. Final report. 10/01/17 16:12 Blood Culture - Final Peripheral Venipuncture No growth. Final report. 10/01/17 11:40 Anaerobic Culture - Final Left Kidney No anaerobes were recovered. 10/01/17 04:10 Blood Culture - Final Peripheral Venipuncture No growth. Final report. 10/01/17 04:20 Blood Culture - Final Peripheral Venipuncture No growth. Final report. 10/01/17 11:40 Body Fluid Culture - Final Other-Specify in Comments Escherichia coli Serology 10/03/17 Range/Units 04:39 HIV Ag/Ab Combo Qual Nonreactive (Nonreactive) Exam - Constitutional Vitals: Temp Pulse Resp BP Pulse Ox 98.3 F 81 18 107/68 97 10/09/17 07:02 10/09/17 07:02 10/09/17 07:02 10/09/17 07:02 10/09/17 07:02 General appearance: cooperative, morbidly obese, no acute distress - Head Head exam: Present: atraumatic, normal inspection, normocephalic - Eye Eye exam: Present: EOMI, normal appearance, PERRL Pupils: Present: normal accommodation - ENT ENT exam: Present: mucous membranes moist - Neck Neck exam: Present: normal inspection - Respiratory Respiratory exam: Present: CTAB. Absent: rales, respiratory distress, rhonchi, wheezes - Cardiovascular Cardiovascular exam: Present: RRR, +S1, +S2 - GI/Abdominal GI/Abdominal exam: Present: distended (obese), normal bowel sounds, soft. Absent: tenderness - Extremities Exam Extremities exam: Present: normal inspection. Absent: joint swelling, pedal edema, tenderness - Back Exam Back exam: Absent: CVA tenderness (L), CVA tenderness (R) - Neurological Exam Neurological exam: Present: alert, oriented X3, no focal deficits - Psychiatric Psychiatric exam: Present: normal affect, normal mood - Skin Skin exam: Present: dry, intact, normal color, warm Consult Discharge Plan - Plan Instructions: Levofloxacin (By mouth), Probiotic (By mouth), Urinary Tract Infection in Women (DC) Additional Instructions: Continue to take Levaquin daily for 5 more days (until 10/14/17) Take probiotics as well Get labs drawn (CBC) in 2 days to confirm that your blood count in returning to normal Follow-up with your primary care provider Return to the hospital if your symptoms return or worsen Referrals: Kaylee Pierre, LAP WINDING MACHINE OPERATOR [Primary Care Provider] - 10/12/17 11:00 am (Follow up as scheduled.) NONE,PCP [Family Provider] - Prescriptions: Lactobacillus [Culturelle] 2 each PO DAILY #60 cap.sprink Levofloxacin [Levaquin] 750 mg PO DAILY #5 tablet - Attending Attestation I examined this patient and my medical decision-making was reviewed with the Resident Physician. I agree with the documented findings, disposition and treatment plan as described except to the extent set forth below.
[2017-10-09 12:00] VITALS: BP 118/79
[2017-10-09] MEDS: Levofloxacin 750 MG/150 ML 750 MG/150 ML BAG IVPB SCH (12:21)
--- NOTE | 2017-10-09 14:08 | Discharge Summary ---
<Josh Zamarripa R - Last Filed: 10/09/17 14:05> - NOTES TO OUTPATIENT PROVIDER Notes to Outpatient Provider: Continue Levaquin until 10/14/17 per ID. Get CBC in 2-3 days for continued monitoring of leukocytosis Date of Encounter: 10/09/17 Time of Encounter: 14:05 - Discharge Diagnosis (1) Severe sepsis Priority: Primary Status: Acute (2) Pyelonephritis Priority: Secondary Status: Acute (3) Renal abscess, left Priority: Secondary Status: Acute (4) Acute respiratory failure with hypoxia Priority: Secondary Status: Acute (5) Obesity Priority: Secondary Status: Chronic Qualifiers: Obesity type: due to excess calories Obesity classification: adult class 3 (BMI >= 40) Serious obesity comorbidity presence: without serious comorbidity Body mass index: BMI 45.0-49.9 Qualified Code(s): E66.01 - Morbid (severe) obesity due to excess calories; Z68.42 - Body mass index (BMI) 45.0-49.9, adult (6) HTN (hypertension) Priority: Secondary Status: Chronic Qualifiers: Hypertension type: essential hypertension Qualified Code(s): I10 - Essential (primary) hypertension (7) GERD (gastroesophageal reflux disease) Priority: Secondary Status: Chronic Qualifiers: Esophagitis presence: esophagitis presence not specified Qualified Code(s) : K21.9 - Gastro-esophageal reflux disease without esophagitis Hospital course: Ms. Hi is a 37 year old female with history of asthma, HTN, GERD, who was admitted 09/28 with LLQ pain. She was severe sepsis due to pyelonephritis and left renal abscess. Abscess was drained 10/01, fluid culture grew E coli. Blood cultures remained negative. Drain removed 10/08. She received Rocephen initially , then Zosyn, then deescalated to Levaquin with plans to treat for total of 14 day (until 10/14). During her hospital stay patient developed hypoxic respiratory failure requiring oxygen supplementation and intermittent BiPAP. Suspect obesity hypoventilation syndrome and fluid overload were contributing to her hypoxia. She was diuresed well with Lasix. On day of discharge, patient was satting 95% on room air. She denies pain and feels ready to go home. She does have a leukocytosis which is likely related to steroids used to assist with her breathing, so this should be followed up as an out-patient with CBC in 2-3 days. She is afebrile and pain free and stable for discharge. Discharge discussed with: patient - Time Spent with Patient Total time spent providing and/or coordinating discharge services: - Discharge Medications Prescriptions: Lactobacillus [Culturelle] 2 each PO DAILY #60 cap.sprink Levofloxacin [Levaquin] 750 mg PO DAILY #5 tablet Home Medications: Albuterol Sulfate [Ventolin Hfa] 2 puff IH Q6H PRN 09/28/17 [History] BuPROPion SR (12 HR) [Wellbutrin SR] 150 mg PO BID 09/28/17 [History] Citalopram Hydrobromide [Celexa] 40 mg PO DAILY 09/28/17 [History] Cyclobenzaprine HCl 5 mg PO DAILY PRN 09/28/17 [History] Fluticasone Propionate [Flovent Hfa] 2 puff IH BID 09/28/17 [History] Furosemide [Lasix] 20 mg PO DAILY 09/28/17 [History] Lisinopril [Zestril] 10 mg PO DAILY 09/28/17 [History] Norethindrone [Cathy] 0.35 mg PO DAILY 09/28/17 [History] Omeprazole [PriLOSEC] 20 mg PO DAILY 09/28/17 [History] Potassium Chloride [K-Tab ER] 20 meq PO DAILY 09/28/17 [History] Lactobacillus [Culturelle] 2 each PO DAILY #60 cap.sprink 10/09/17 [Rx] Levofloxacin [Levaquin] 750 mg PO DAILY #5 tablet 10/09/17 [Rx] Allergies/Adverse Reactions: 3 Allergy/AdvReac Type Severity Reaction Status Date / Time sulfamethoxazole Allergy Hives Verified 09/28/17 10:39 [From Bactrim] trimethoprim [From Bactrim] Allergy Hives Verified 09/28/17 10:39 Date of admission: 09/28/17 21:58 Primary care physician: Kaylee Pierre CNP Consults: 10/01/17 09:01 Consult to Interventional Radiology [CONS] Routine Consulting Provider: Radiology Interventional [place] Reason for Consult: left renal abscess needing drainage Call Completed: No 10/03/17 07:28 Consult to Infectious Diseases [CONS] Routine Consulting Provider: Infectious Disease [place] Reason for Consult: pyelonephritis with renal abcess, cx negative; abx recs for choice and duration please Call Completed: No 10/04/17 17:38 Consult to Toolmaker [CONS] Routine Reason for SW Consult: Patient tearful pertianing to mothers , home enviornment, may need resource options. 10/08/17 07:15 Consult to Interventional Radiology [CONS] Routine Consulting Provider: Radiology Interventional [facility] Reason for Consult: eval for removal of drain Call Completed: No Discharging clinician: Josh Zamarripa Anticipated date of discharge: 10/09/17 - Constitutional Vitals: Temp Pulse Resp BP Pulse Ox 98.6 F 95 18 118/79 100 10/09/17 11:59 10/09/17 11:59 10/09/17 11:59 10/09/17 11:59 10/09/17 11:59 General appearance: Present: no acute distress, answers questions appropriately Exam: Gen: Awake, alert, sitting in chair, NAD HEENT: NC/AT CV: RRR, no MRG. 2+ radial and PT pulses bilaterally. Resp: CTAB Abd: Soft, nontender Skin: previous drain site clean and dry Extrem: Trace LE edema - Patient Status Disposition: Home, Self-Care Condition: Good Functional capacity at discharge: independent ambulation Overall status at discharge: patient is progressing back to baseline - Discharge Instructions Instructions: Levofloxacin (By mouth), Probiotic (By mouth), Urinary Tract Infection in Women (DC) Follow Up With: Kaylee Pierre INVESTMENT ANALYST [Primary Care Provider] - 10/12/17 11:00 am (Follow up as scheduled.) NONE,PCP [Family Provider] - Additional Instructions: Continue to take Levaquin daily for 5 more days (until 10/14/17) Take probiotics as well Get labs drawn (CBC) in 2 days to confirm that your blood count in returning to normal Follow-up with your primary care provider Return to the hospital if your symptoms return or worsen - Diet and Activity Activity: increase activity as tolerated Diet: advance to your usual diet - VTE Documentation of Mechanical Device: Intermittent pneumatic compression device <Mina Horn - Last Filed: 10/09/17 17:07> Date of Encounter: 10/09/17 - Discharge Diagnosis (1) Pyelonephritis Status: Acute (2) Obesity Status: Chronic Qualifiers: Obesity type: due to excess calories Obesity classification: adult class 3 (BMI >= 40) Serious obesity comorbidity presence: without serious comorbidity Body mass index: BMI 45.0-49.9 Qualified Code(s): E66.01 - Morbid (severe) obesity due to excess calories; Z68.42 - Body mass index (BMI) 45.0-49.9, adult (3) HTN (hypertension) Status: Chronic Qualifiers: Hypertension type: essential hypertension Qualified Code(s): I10 - Essential (primary) hypertension (4) GERD (gastroesophageal reflux disease) Status: Chronic Qualifiers: Esophagitis presence: esophagitis presence not specified Qualified Code(s) : K21.9 - Gastro-esophageal reflux disease without esophagitis (5) Acute respiratory failure with hypoxia Status: Acute (6) Renal abscess, left Status: Acute (7) Severe sepsis Status: Acute Hospital course: Ms. Hi is a 37 year old female - Time Spent with Patient Total time spent providing and/or coordinating discharge services: Date of admission: 09/28/17 21:58 Primary care physician: Kaylee Pierre CNP Consults: 10/01/17 09:01 Consult to Interventional Radiology [CONS] Routine Consulting Provider: Radiology Interventional Cols Reason for Consult: left renal abscess needing drainage Call Completed: No 10/03/17 07:28 Consult to Infectious Diseases [CONS] Routine Consulting Provider: Infectious Disease [place] Reason for Consult: pyelonephritis with renal abcess, cx negative; abx recs for choice and duration please Call Completed: No 10/04/17 17:38 Consult to Toolmaker [CONS] Routine Reason for SW Consult: Patient tearful pertianing to mothers , home enviornment, may need resource options. 10/08/17 07:15 Consult to Interventional Radiology [CONS] Routine Consulting Provider: Radiology Interventional Cols Reason for Consult: eval for removal of drain Call Completed: No - Constitutional Vitals: Temp Pulse Resp BP Pulse Ox 98.6 F 95 18 118/79 100 10/09/17 11:59 10/09/17 11:59 10/09/17 11:59 10/09/17 11:59 10/09/17 11:59 - Attending Attestation I examined this patient and my medical decision-making was reviewed with the Resident Physician Dr. Zamarripa. I agree with the documented findings, disposition and treatment plan as described except to the extent set forth below.
== END 2017-10-09 15:34 | disposition home or self-care (01) | DRG 720 ==
LOC: 2ANU 12:17 → EMEROO 12:17 → 2ANU 19:37
PROVIDERS: ADMIT Internal Medicine; ATTEND Internal Medicine
PROC: IRDRAIN (2017-10-01 13:00)